=== PATIENT | female | born 1955 | race African-American/Black ===

== ENCOUNTER → 2017-11-04 10:07 | Outpatient (CLI) | payer BC, SELFPAY ==
--- NOTE | 2017-11-04 10:59 | CT_ITS ---
STUDY: CT CHEST WITH CONTRAST REASON FOR EXAM: Female, 62 years old. Nodule. RADIATION DOSAGE (If Supplied By Facility): CTDIvol = ( 14.73 ) mGy, DLP = ( 623.74 ) mGycm TECHNIQUE: Transaxial imaging was performed following intravenous administration of 100 ml of Isovue 300 contrast material. Individualized dose optimization techniques were used for this CT. COMPARISON: 09/11/2016. FINDINGS: There is mild atelectasis in the posterior lungs and lung bases. Previously demonstrated right lower lobe lung nodules have resolved. There is no demonstrated pleural abnormality. Normal heart and pericardium. There are enlarged subcarinal, pretracheal, and left mediastinal lymph nodes. Largest nodes are seen in the subcarinal region ranging up to 2.1 cm in short axis diameter. Mediastinal lymphadenopathy is slightly improved compared to the 2017 exam. There are enlarged hilar lymph nodes bilaterally, not significantly different previous exam. Normal enhanced pulmonary arteries. Normal aorta arch and descending thoracic aorta. There are multi-level degenerative changes of the thoracic spine. There is no demonstrated abnormality of the visualized upper abdomen. CT/Chest WITH Contrast IMPRESSION: Mediastinal lymphadenopathy, with slight interval improvement from previous exam. Bilateral hilar lymphadenopathy, not significantly changed. Interval resolution of previously demonstrated right lower lobe lung nodules. No currently demonstrated pulmonary nodules. Electronically Signed: Ziyad Markham MD at 7:31 EDT , Service support ,
[2017-11-04 11:20] LABS: CREATININE FINGERSTICK 0.8 mg/dL (0.55-1.02)
--- NOTE | 2017-11-05 05:45 | PFTCOMP_ITS ---
COMPLETE PULMONARY FUNCTION TEST INTERPRETATION Brief HPI: Patient is a 62 year old Black female, currently under the care of Dr. Royal, who presents to [facility] for complete pulmonary function tests secondary to diagnosis of restrictive lung disease. Respiratory therapist reports good effort and reproducible results. Interpretation: Forced expiration spirometry shows no large airways obstructive ventilatory defect with an FEV1 of 72% predicted. There is no significant bronchodilator response by ATS criteria. Spirograms are of good quality and plateau normally. The respiratory flow volume loop shows decreased expiratory flow rates at high lung volumes consistent with small airways obstruction. Lung volumes by body plethysmography show a decreased total lung capacity at 3.79 L, 78% predicted. All other lung volumes are reduced symmetrically. Diffusion capacity by carbon monoxide is decreased at 58% predicted. The airway resistance is normal. Compared to previous pulmonary function tests from 12/24/2016, there has been a significant improvement in total lung capacity. Impression: Mild restrictive ventilatory defect with a symmetric reduction diffusing capacity, which is slightly improved compared to previous examination.
== END ==
PROVIDERS: Family Provider Internal Medicine; PCP Internal Medicine; Visit Provider Internal Medicine Critical Care Medicine
DX: J98.4 Other disorders of lung (principal); R59.0 Localized enlarged lymph nodes
CPT/HCPCS: 71260; 94060; 94726; 94729; Q9967

== ENCOUNTER 2018-08-22 23:13 | Emergency (ER) | payer BC, SELFPAY ==
[2018-06-11 10:47] VITALS: BMI 32.9
[2018-08-22 23:15] VITALS: BP 167/98; PULSE 57; RESP 16; TEMP 36.4; O2SAT 100; BMI 33.7
--- NOTE | 2018-08-23 00:15 | ED.DCSUM_ITS ---
- ER Visit Summary Date of Service: 08/23/18 Chief Complaint: Abdominal pain History of Present Illness: The patient is a 62 F who presents with abdominal pain that has been intermittent over the past 2 days. Patient states her pain is worse approximately 2 hours after eating. Patient states the pain is over the upper abdomen. Patient states pain does radiate into her back. Patient describes the pain as burning. Patient denies any nausea or vomiting. Patient denies any diarrhea, melena, or hematochezia. Patient denies any dysuria or hematuria. Patient denies any abnormal vaginal bleeding or discharge. Physical Examination: Vital signs are stable. Patient is afebrile. Patient is in no acute distress. Oral mucosa is pink and moist. Neck is supple. Trachea is midline. There is no JVD noted. Heart was regular rate and rhythm. Lungs are clear and equal bilateral. Abdomen is soft. Bowel sounds are normal. There is no tenderness. There is no guarding noted. Skin is warm dry. Cranial nerves II through XII are intact. There are no focal motor or sensory deficits noted. The remaining physical exam is within normal limits. Test Results: CBC, comprehensive metabolic profile, lipase, and urinalysis were obtained and were within normal limits. Emergency Department Course and Treatment: Patient was given morphine and Zofran here. Patient felt better on reevaluation. Patient was instructed to follow-up with her primary care physician for further evaluation. Patient was advised she may need an outpatient ultrasound of her gallbladder. Patient was instructed to avoid fried foods, greasy foods, and fatty foods. Patient and her understood and were agreeable with the plan. All questions were answered. Disposition: Discharge home Impression: Right upper quadrant abdominal pain This note was generated with [employer] dictation software. It may contain incorrect words, spelling, and punctuation that were not noted in review of the chart prior to signing ED Disposition - Plan for ED Patient: Disposition: Home or Assisted Living Diagnosis: Right upper quadrant abdominal pain Instructions: ED Abdominal Pain Unkn Cause Referrals: Charlee Espinoza MD [Primary Care Provider] - 3-5 Days
[2018-08-23] MEDS: Morphine 4 MG/ML Syringe IV (00:25)
[2018-08-23] MEDS: Ondansetron 4 MG/2 ML Vial IV (00:25)
[2018-08-23 00:36] LABS: Bacteria 0 SEEN /hpf (None Seen); Mucous, Urine 0 SEEN /hpf (<or=2+); Red Blood Cells-Urine 0 SEEN /hpf (0-5); White Blood Cells 0 SEEN /hpf (0-5)
[2018-08-23 00:47] LABS: Absolute Lymphocyte Count 2.05 X10^3/ul (0.83-4.51); Absolute Neutrophil Count 2.4 X10^3/uL (2.0-7.7); Basophil# 0.02 X10^3/uL; Basophil% 0.4 % (0-1); Eosinophil# 0.07 X10^3/uL; Eosinophils% 1.4 % (0-5); Hematocrit 35.8 % (37-47); Lymphocyte # 2.05 X10^3/ul (4.0); Lymphocyte % 41.5 % (19-41); Mean Corp Hgb Conc 33.5 g/gl (32-36); Mean Corpuscular Hgb 27.4 pg (27.0-32.0); Mean Corpuscular Volume 81.7 fL (81-99); Mean Platelet Vol. 12.3 fl (6.2-12.0); Monocyte# 0.36 X10^3/uL; Monocyte% 7.3 % (0-10); Neutrophil # 2.43 X10^3/uL (2.7-7.7); Neutrophil % 49.2 % (47-70); Platelet Count 164 K/mm3 (150-450); RBC Distribution Width CV 14.2 % (11.6-14.6); RBC Distribution Width SD 42.3 fl (35.1-43.9); Red Blood Count 4.38 M/mm3 (4.2-5.4); White Blood Count 4.9 K/mm3 (4.4-11.0)
[2018-08-23 00:48] LABS: ALB/GLOB Ratio 1.1 RATIO (0.9-2.4); AST(SGOT) 19 U/L (15-37); Alanine Aminotransfer ALT/SGPT 19 U/L (13-56); Albumin, Serum 3.8 g/dL (3.2-5.0); Alkaline Phosphatase 82 U/L (45-117); Anion Gap 3 (5-15); BUN 15 mg/dL (7-18); BUN/Creat Ratio 13.5 RATIO (10-20); Calcium,Total 9.5 mg/dL (8.5-10.1); Chloride 107 mmol/L (98-107); Creatinine, Serum 1.11 mg/dL (0.55-1.02); EST Glomerular Filtration Rate 53 mL/min (>60); Est Glom Filt Rate - Afr Amer 64 mL/min (>60); Estimated Creatinine Clearance 45.38 ml/min; Globulin 3.5 g/dL (2.2-4.2); Glucose 116 mg/dL (74-106); Lipase 272 U/L (73-393); Potassium 3.9 mmol/L (3.5-5.1); Protein, Total 7.3 g/dL (6.4-8.2); Sodium Level 140 mmol/L (136-145)
[2018-08-23 00:49] LABS: Color, Urine Yellow (Yellow); Glucose, Dipstick Normal (Normal); Ketone-Dipstick Negative (Negative); Leukocyte Esterase-Dipstick Negative /ul (Negative); Nitrite-Dipstick Negative (Negative); Occult Blood-Urine Negative /ul (Negative); Protein-Dipstick Negative (Negative); Specific Gravity, Urine 1.015 (1.002-1.030); Urine Bilirubin Dipstick Negative (Negative); Urine Clarity Clear (Clear); Urine Urobilinogen Normal (Normal); Urine pH 6.5 (5.0 - 8.0)
[2018-08-23 00:51] LABS: POSITIVE COUNT NO; POSITIVE DIFFERENTIAL NO; POSITIVE MORPHOLOGY NO
[2018-08-23 00:56] LABS: Squamous Epithelial Cells - UA 0-5 SEEN /hpf (5-10)
[2018-08-23 01:55] VITALS: BP 155/85; PULSE 60; RESP 14; O2SAT 98
== END 2018-08-23 01:59 | disposition home or self-care (01) ==
PROVIDERS: Emergency Provider Emergency Medicine; Family Provider Internal Medicine; PCP Internal Medicine
DX: R10.11 Right upper quadrant pain (principal); E11.9 Type 2 diabetes mellitus without complications
CPT/HCPCS: 80053; 81001; 83690; 85025; 96374; 96375; 99284; A4216; J2405

== ENCOUNTER 2020-10-22 14:13 | Emergency (ER) | payer BC, SELFPAY ==
[2020-10-22 14:13] VITALS: BP 167/90; PULSE 57; RESP 15; TEMP 36.4; O2SAT 100; BMI 32.3
[2020-10-22 14:48] VITALS: BP 173/89; PULSE 59; RESP 16; O2SAT 100
--- NOTE | 2020-10-22 15:05 | EKG12_ITS ---
Test Reason : CP Blood Pressure : / mmHG Vent. Rate : 054 BPM Atrial Rate : 054 BPM P-R Int : 164 ms QRS Dur : 068 ms QT Int : 422 ms P-R-T Axes : 065 -05 048 degrees QTc Int : 400 ms Sinus bradycardia Moderate voltage criteria for LVH, may be normal variant Borderline ECG Confirmed by CORTNEY CASTRO, RON ([id number]), associate editor LISETH BUI ([id number]) on 10/26/2020 9:28:24 AM Referred By: FAWN/DEEJAY Confirmed By:RON BARR MD
--- NOTE | 2020-10-22 15:26 | RAD_ITS ---
STUDY: X-RAY CHEST REASON FOR EXAM: Female, 65 years old. chest pain TECHNIQUE: 1 view COMPARISON: 09/10/2016 FINDINGS: The cardiac silhouette is unremarkable. Bilateral hilar adenopathy is unchanged. Costophrenic angles are sharp. Lungs are clear. The trachea is midline. There is no pneumothorax. The bones are grossly intact. RAD/Chest 1 View (Portable) IMPRESSION: No acute cardiopulmonary process. Stable bilateral hilar adenopathy. Electronically Signed: Atif Torres MD at 15:50 EDT Tel , Service support ,
[2020-10-22 15:45] LABS: Absolute Lymphocyte Count 1.72 X10^3/uL (0.83-4.51); Absolute Neutrophil Count 2.7 X10^3/uL (2.0-7.7); Basophil# 0.03 X10^3/uL; Basophil% 0.6 % (0-1); Eosinophil# 0.05 X10^3/uL; Hematocrit 35.2 % (37-47); Hemoglobin 11.5 g/dL (12.0-15.0); Lymphocyte # 1.72 X10^3/ul (0.83-4.51); Mean Corp Hgb Conc 32.7 g/dL (32-36); Mean Corpuscular Hgb 27.5 pg (27.0-32.0); Mean Corpuscular Volume 84.2 fL (81-99); Mean Platelet Vol. 12.2 fl (6.2-12.0); Monocyte# 0.37 X10^3/uL; Monocyte% 7.5 % (0-10); NRBC Flagged by Analyzer 0 % (0-5); Neutrophil # 2.73 X10^3/uL (2.7-7.7); Neutrophil % 55.5 % (47-70); Platelet Count 154 K/mm3 (150-450); RBC Distribution Width CV 13.8 % (11.6-14.6); RBC Distribution Width SD 42.4 fl (35.1-43.9); Red Blood Count 4.18 M/mm3 (4.2-5.4); White Blood Count 4.9 K/mm3 (4.4-11.0)
[2020-10-22 16:04] LABS: Anion Gap 6 (5-15); BUN 16 mg/dL (7-18); BUN/Creat Ratio 17.7 RATIO (10-20); Calcium,Total 9.5 mg/dL (8.5-10.1); Chloride 108 mmol/L (98-107); Creatinine, Serum 0.91 mg/dL (0.55-1.02); EST Glomerular Filtration Rate 66 mL/min (>60); Est Glom Filt Rate - Afr Amer 80 mL/min (>60); Estimated Creatinine Clearance 53.22 ml/min; Glucose 88 mg/dL (74-106); Potassium 4.1 mmol/L (3.5-5.1); Sodium Level 143 mmol/L (136-145)
[2020-10-22] MEDS: Aspirin 81 MG TAB.CHEW 324 MG PO (16:13)
--- NOTE | 2020-10-22 16:16 | ED.VIS.CHEST ---
HPI History of Present Illness Chief Complaint: Chest Pain Informant: patient and spouse/S.O. Onset/Context/Timing Onset: Today Activity at onset: sudden and light activity Timing: Intermittent (Initially thought it lasted 2 minutes to 3 minutes) Quality: Positive for - (A light fist in the middle of my chest) Location: Substernal Current Severity: Gone Maximum Severity: Mild Worsened By: Nothing Relieved By: Nothing Associated Symptoms: Positive for - (There was no radiation.); Negative for Nausea, Vomiting, Diaphoresis, Dyspnea, Cough, Fever, Lightheadedness, Acid Reflux and Palpitations Narrative Narrative: Patient is a 65-year-old woman with history of hypertension. She denies history of coronary disease. She states Dr. Rickey Back manages her hypertension. She denies heartburn or indigestion. She denies history of reflux. She denies black or maroon-colored stool. She states she does have type 2 diabetes for the past 11 years. She also has history of allergic rhinitis. Patient denies coronary disease. Patient denies history of VTE. Patient denies risk factors for VTE. She denies leg pain, swelling discoloration. Prior Similar Symptoms: No Recent Illness/Hospitalization: No CVD Risk Factors: Positive for Hypertension and Diabetes; Negative for Hypercholesterolemia, Family History 1' </=55 and Smoking PE Risk Factors: Negative for Recent Travel/Surgery, Recent Immobilization, Prior DVT or PE and OCP + Smoking + >/=35 TAD Risk Factors: Positive for Hypertension; Negative for Marfan's Syndrome and Family History [facility] Medical History (Updated 10/22/20 @ 16:[address] Anish Aguirre MD) Abnormal chest CT Acute confusional state Anemia Back problem Essential (primary) hypertension Headache Hyperlipidemia Left atrial enlargement Mediastinal lymphadenopathy Pancytopenia Restrictive lung disease Sarcoidosis Seasonal allergies Sinus bradycardia TIA (transient ischemic attack) Transient global amnesia Type 2 diabetes mellitus Vision problem Home Medications fluticasone propionate 50 mcg/actuation nasal spray,suspension 2 spray INTRANASAL QDAY #1 device 09/26/17 [Rx Last Taken Unknown] montelukast 10 mg tablet 10 mg PO QPM PRN tab 06/15/19 [History Last Taken Unknown] losartan 50 mg PO DAILY 10/22/20 [History Last Taken Unknown] metformin 250 mg PO QPM 10/22/20 [History Last Taken Unknown] metformin 500 mg PO BREAKFAST 10/22/20 [History Last Taken Unknown] rosuvastatin [Crestor] 10 mg PO QHS 10/22/20 [History Last Taken Unknown] Allergy/AdvReac Type Severity Reaction Status Date / Time Penicillins Allergy Rash Verified 10/22/20 14:13 Family History Father , Unknown causes, believed to be lung cancer No problems noted. Surgical History History of cholecystectomy History of partial thyroidectomy Social History (Updated 10/22/20 @ 16:[address] Anish Aguirre MD) household members: spouse Smoking Status: Never smoker alcohol intake: never substance use type: does not use caffeine: Yes Type: coffee Number of servings: 3 ROS ROS ED Constitutional Constitutional ED: Denies chills, fever(s), subjective or sweats Eyes Eyes: Denies none, blurry vision, change in vision or diplopia ENT ENT ED: Denies ear pain, rhinorrhea or sore throat Cardiovascular Cardiovascular: Reports as per HPI; Denies orthopnea or paroxysmal nocturnal dyspnea Respiratory/Chest Respiratory/Chest: Denies cough, dyspnea, dyspnea on exertion, orthopnea or paroxysmal nocturnal dyspnea Gastrointestinal Gastrointestinal: Denies abdominal pain, diarrhea, nausea or vomiting Genitourinary Genitourinary ED: Denies dysuria, hematuria or urinary frequency Musculoskeletal Musculoskeletal: Denies arthralgias, back pain or myalgias Integumentary Denies rash Neurologic Neurologic: Denies headache(s) or weakness Endocrine Endocrinology: Denies polydipsia, polyphagia or polyuria EXAM Physical Exam Const Vital Signs: 10/22/20 14:13 10/22/20 14:48 10/22/20 15:05 Temperature 97.5 F L Temperature Source Temporal Pulse Rate 57 L 59 L Respiratory Rate 15 16 Blood Pressure 167/90 H 173/89 H Blood Pressure Mean 115 117 Pulse Ox 100 100 Oxygen Delivery Method Room Air Room Air Room Air Positive well nourished and well developed General Appearance ED: well developed; Negative for pallor HEENT HEENT Narrative: Ears are normal. Nares patent with no discharge. Posterior pharynx unremarkable with no erythema or exudate. normocephalic and atraumatic Eyes PERRL and EOMs intact bilaterally General Eye ED: Negative for pale conjunctiva or scleral icterus Neck no lymphadenopathy, supple and no JVD Chest Wall inspection of chest normal Resp normal respiratory effort and clear to auscultation bilaterally Effort and Inspection: respiratory distress Cardio regular rate, regular rhythm, S1 normal heart sound, S2 normal heart sound and no murmurs GI normal to inspection, nondistended, normoactive bowel sounds, soft to palpation and non-tender Back/Spine no CVA tenderness Extremity normal to inspection Extremity Narrative: There is no asymmetry, swelling, discoloration, leg vein distention, palpable cords or tenderness along the distribution of the deep venous system. General Extremety ED: Negative for edema, pulses abnormal or tenderness General Extremity: Negative for edema or pulses abnormal Neuro oriented x3, CN's II-XII intact bilaterally and no sensory deficits noted Sensorium / Orientation: awake and alert Motor Exam: strength 5/5 throughout Psych mental status grossly normal Skin no rashes or lesions noted and no wounds General Skin Exam: Negative for jaundice or pallor Heart Score History: Slightly/Non-Suspicious ECG: Normal Age: >/= 65 years Risk Factors: 1 or 2 Risk Factors Troponin: </= Normal Limit Score: 3 MDM MDM MDM Narrative Medical decision making narrative: Patient has a heart score 3. Patient has a very atypical presentation and at the time of discharge when I informed patient of test results states the pain probably lasted less than a minute. They are concerned because of elevated blood pressure readings the past 1 to 2 weeks. They were instructed to contact Dr. Rickey Back for follow-up. Her most recent blood pressure is 158/85. Lab Data Attestation: I reviewed the patient's lab results. Labs: Laboratory Results - last 24 hr 10/22/20 10/22/20 15:35 15:35 WBC 4.9 RBC 4.18 L Hgb 11.5 L Hct 35.2 L MCV 84.2 MCH 27.5 MCHC 32.7 RDW Std Deviation 42.4 RDW Coeff of Dejon 13.8 Plt Count 154 MPV 12.2 H Immature Gran % (Auto) 0.400 Neut % (Auto) 55.5 Lymph % (Auto) 35.0 Mingo % (Auto) 7.5 Eos % (Auto) 1.0 Baso % (Auto) 0.6 Absolute Neuts (auto) 2.7 Absolute Lymphs (auto) 1.72 Nucleated RBC % 0 Sodium 143 Potassium 4.1 Chloride 108 H Carbon Dioxide 29.0 Anion Gap 6 BUN 16 Creatinine 0.91 Estim Creat Clear Calc 53.22 Est GFR (MDRD) Af Amer 80 Est GFR (MDRD) Non-Af 66 BUN/Creatinine Ratio 17.7 Glucose 88 Calcium 9.5 Troponin I < 0.015 Radiography Chest X-Ray - ED: 1 View, Read by ED Physician, Heart, Lungs, Bony Structures, No Acute Disease and - (Patient has bilateral hilar lymphadenopathy consistent with sarcoidosis. Unchanged from 2018.) Diagnostic Testing: Radiology Impression Chest X-Ray 10/22/20 15:26 IMPRESSION: No acute cardiopulmonary process. Stable bilateral hilar adenopathy. Electronically Signed: Atif Torres MD at 15:50 EDT Tel , Service support , Discharge Plan Triage Chief Complaint: Chest Pain ED Provider: Anish Aguirre Dx/Rx/DC Orders Clinical Impression: Central chest pain, Hypertension Instructions: ED Chest Pain, Uncertain Cause Prescriptions: No Action fluticasone propionate [Flonase Allergy Relief] 50 mcg/actuation spray,suspension 2 spray INTRANASAL QDAY Qty: 1 RF: 6 montelukast [Singulair] 10 mg tablet 10 mg PO QPM PRN (Reason: allergies) RF: 0 losartan 50 mg Tablet 50 mg PO DAILY RF: 0 metformin 500 mg Tablet 500 mg PO BREAKFAST RF: 0 metformin 500 mg Tablet 250 mg PO QPM RF: 0 rosuvastatin [Crestor] 10 mg Tablet 10 mg PO QHS RF: 0 Primary Care Provider: Charlee Espinoza Referrals: Charlee Espinoza MD [Primary Care Provider] - Rickey Back MD [STAFF PHYSICIAN] - 1-2 Weeks (Patient presented with atypical chest pain. and patient report elevated blood pressure for the past week or 2. She had elevated blood pressure readings in the department. Follow-up for blood pressure) Disposition Disposition: Home, self care
== END 2020-10-22 16:37 | disposition home or self-care (01) ==
PROVIDERS: Emergency Provider Emergency Medicine; PCP Internal Medicine
DX: R07.9 Chest pain, unspecified (principal); I10 Essential (primary) hypertension; E11.9 Type 2 diabetes mellitus without complications; E78.5 Hyperlipidemia, unspecified; Z79.899 Other long term (current) drug therapy; Z79.84 Long term (current) use of oral hypoglycemic drugs
CPT/HCPCS: 71045; 80048; 84484; 85025; 93005; 99284

== ENCOUNTER → 2021-09-24 | Outpatient (CLI) | payer BC, SELFPAY ==
--- NOTE | 2021-09-24 10:47 | STEWCON_ITS ---
Reason For Study: HTN Stress Results Protocol: Pal Protocol WITH DEFINITY Maximum Predicted HR: 154 bpm Target HR: 131 bpm % Maximum Predicted HR: 101 % DurationHeart Rate Stage (mm:ss) (bpm) BP Comment Baseline 62 118/70No Chest Pain; 4 ML Diluted Definity Pal Protocol Stage I 3:00 114 130/64No Chest Pain Pal Protocol Stage II 3:00 136 150/66No Chest Pain Pal Protocol Stage III 3:00 155 160/64No Chest Pain; Mild to Mod Dyspnea Recovery 75 118/72No Chest Pain; No Dyspnea Stress Duration: 9:00 mm:ss Maximum Stress HR: 155 bpm METS: 10 Baseline Echocardiogram Findings Stress Echo Wall motion Data Resting WM Intermediate WM Stress WM Doppler Measurements & Calculations MV E max stuart: 65.0 cm/sec MV A max stuart: 99.0 cm/sec MV E/A: 0.66 ECHO/Stress Test Echo W/Contrast Interpretation Summary Exercise stress echo. 66-year-old lady with a history of hypertension. Stress protocol: Resting EKG demonstrates sinus bradycardia with a rate of 52 bpm. Normal interv als are noted resting blood pressure is 118/70 mmHg. Patient exercised according to the regular Pal protocol for total duration of 9 minutes. The maximum heart rate attained was 155 bpm which was 10 0% of max impacted heart rate. The maximum workload was 10.1 metabolic equivalents. At rest there were no ST or T wave changes noted suggest ischemia and at peak exercise upsloping ST changes were n oted with did not meet the criteria for ischemia. No clinical angina was noted. Occasional premat ure atrial complex was present. The peak blood pressure was 160/66 mmHg. Stress echocardiogram. The resting echocardiogram was performed with Definity enhancement demonstrated preserved left ventricular systolic function estimated ejection fraction of 55%. At peak exerc ise there was thickening of all mendieta and reduction of left ventricular cavity size. The peak ejection fraction was 65%. No wall motion abnormalities were noted to suggest ischemia at a high workload attained. Conclusion: Normal exercise stress test with no evidence of ischemia at a high workload. Normal resting and stress echocardiographic images with Definity enhancement. Ordering Physician: Rickey Back Referring Physician: Rickey Back Performed By: Akosua Osullivan, STUART, RVT
== END | disposition home or self-care (01) ==
PROVIDERS: PCP Internal Medicine; Visit Provider Internal Medicine Cardiovascular Disease
DX: I10 Essential (primary) hypertension (principal)
CPT/HCPCS: 93017; 93350; Q9957; A4216; C8928

== ENCOUNTER 2023-07-22 15:11 | Emergency (ER) | payer BC, SELFPAY ==
[2023-07-22 15:11] VITALS: BP 149/84; PULSE 56; RESP 18; O2SAT 97
[2023-07-22 15:13] VITALS: BP 168/91; PULSE 63; RESP 16; TEMP 36.3; O2SAT 100; BMI 31.5
--- NOTE | 2023-07-22 15:20 | ED.RN ---
PT REPORTS SHE CAN'T REMEMBER EVENTS FROM TODAY- DOES NOT KNOW WHAT SHE DID THIS AM. IS AWARE OF PLACE, MONTH, YEAR AND DAY OF THE WEEK.
--- NOTE | 2023-07-22 15:25 | EX.ED.DYSGE1 ---
HPI History of Present Illness Chief Complaint: Confusion Detail of Chief Complaint: Confusion Informant: patient Onset/Context/Timing Onset: Today Context: Sudden Onset Timing: Continuous Quality: Forgetful Location: Not applicable Current Severity: Mild Maximum Severity: Unknown Worsened by: Nothing Relieved by: Nothing Associated Symptoms Associated Symptoms: Nothing Narrative Narrative: Patient is a 67-year-old woman with history of hypertension, type 2 diabetes who presents because of forgetfulness. She has history of transient global amnesia in 2017. She does not recall if she went to [facility] [facility] or not. She did get ready to go to [facility] [facility]. She states her would states she is normal at this time. She denies fever, chills or night sweats. She denies headache. Eyes double vision blurred vision loss of vision. [place] ringing or ears decreased hearing. No trouble speech or swallowing. She denies paresthesia, anesthesia or motor weakness. She denies problems with coordination or balance. She denies abdominal pain, nausea, vomiting or diarrhea. She denies dysuria, frequency, urgency or hematuria. Prior similar symptoms: Yes (September 2016) [facility] Medical History Abnormal chest CT Acute confusional state Anemia Back problem Essential (primary) hypertension Headache Hyperlipidemia Left atrial enlargement Mediastinal lymphadenopathy Pancytopenia Restrictive lung disease Sarcoidosis Seasonal allergies Sinus bradycardia Transient global amnesia Type 2 diabetes mellitus Vision problem Home Medications fluticasone propionate 50 mcg/actuation nasal spray,suspension (Flonase Allergy Relief) 2 spray intranasal QDAY #1 device 09/26/17 [Rx Last Taken Unknown] montelukast 10 mg tablet (Singulair) 10 mg PO QPM PRN allergies 06/15/19 [History Last Taken Unknown] losartan 50 mg tablet 50 mg PO DAILY 10/22/20 [History Last Taken Unknown] metformin 500 mg tablet 500 mg PO BID 08/21/21 [History Last Taken Unknown] amlodipine 5 mg tablet See Rx Instructions .Route .COMPLEX #90 tabs 10/01/22 [Rx Last Taken Unknown] tirzepatide 2.5 mg/0.5 mL subcutaneous pen injector (Mounjaro) 2.5 mg subcut QWEEK 11/21/22 [History Last Taken Unknown] Allergy/AdvReac Type Severity Reaction Status Date / Time Penicillins Allergy Rash Verified 07/22/23 15:12 rosuvastatin [From Crestor] AdvReac memory loss Verified 07/22/23 15:12 Family History Father , Unknown causes, believed to be lung cancer No problems noted. Surgical History History of cholecystectomy History of partial thyroidectomy Social History household members: spouse Smoking Status: Never smoker alcohol intake: never substance use type: does not use caffeine: Yes Type: coffee Number of servings: 3 ROS ROS ED Constitutional Constitutional ED: Denies chills, fever(s), sweats or weight loss Eyes Eyes: Denies blurry vision, change in vision or diplopia ENT ENT ED: Denies ear pain, rhinorrhea or sore throat Cardiovascular Cardiovascular: Denies chest pain, orthopnea, palpitations, paroxysmal nocturnal dyspnea or racing heartbeat Respiratory/Chest Respiratory/Chest: Denies cough, dyspnea, dyspnea on exertion, orthopnea or paroxysmal nocturnal dyspnea Gastrointestinal Gastrointestinal: Denies abdominal pain, diarrhea, nausea or vomiting Genitourinary Genitourinary ED: Denies dysuria, hematuria or urinary frequency Musculoskeletal Musculoskeletal: Denies arthralgias, back pain, myalgias or neck pain Integumentary Denies abscess or rash Neurologic Neurologic: Denies headache(s), paresthesias or weakness Endocrine Endocrinology: Denies cold intolerance or heat intolerance Hematologic/Lymphatic Hematologic/Lymphatic: Reports systems reviewed and no addt'l complaints, except as documented EXAM Physical Exam Const Vital Signs: 07/22/23 15:13 07/22/23 15:11 07/22/23 16:11 Temperature 97.4 F L Temperature Source Temporal Pulse Rate 63 56 L 64 Respiratory Rate 16 18 16 Blood Pressure 168/91 H 149/84 H 140/78 H Blood Pressure Mean 116 105 98 Pulse Ox 100 97 97 Oxygen Delivery Method Room Air Room Air Room Air 07/22/23 17:00 Temperature Temperature Source Pulse Rate 49 L Respiratory Rate 16 Blood Pressure 128/67 H Blood Pressure Mean 87 Pulse Ox 98 Oxygen Delivery Method Room Air Positive well nourished and well developed General Appearance ED: well developed and NAD; Negative for pallor HEENT Reports moist mucous membranes HEENT Narrative: Head is atraumatic and normocephalic. Ears normal. Nares patent. Posterior pharynx out erythema or exudate. Uvula midline. No deviation tongue or protrusion. Eyes PERRL and EOMs intact bilaterally Eyes Narrative: Patient does wear glasses. General Eye ED: Negative for pale conjunctiva or scleral icterus Neck no lymphadenopathy, supple and no JVD Chest Wall inspection of chest normal and palpation of chest normal Resp normal respiratory effort and clear to auscultation bilaterally Cardio regular rate, regular rhythm, S1 normal heart sound, S2 normal heart sound and no murmurs GI normal to inspection, nondistended, normoactive bowel sounds, non-tender, non-distended and no masses; Negative for hepatosplenomegaly Auscultation: normoactive bowel sounds Palpation: soft Back/Spine no CVA tenderness Extremity normal to inspection General Extremety ED: Negative for edema or tenderness General Extremity: Negative for edema Neuro oriented x3, CN's II-XII intact bilaterally and no sensory deficits noted Sensorium / Orientation: alert Motor Exam: strength 5/5 throughout Psych mental status grossly normal Mood & Affect: Negative for depressed or anxious Skin no rashes or lesions noted, no wounds and skin turgor normal General Skin Exam: Negative for jaundice or pallor MDM MDM MDM Narrative Medical decision making narrative: Frontal diagnosis would be metabolic versus infectious cause. Suspect this represents global transient amnesia. Because she is diabetic obtain BMP to assess glucose as well as electrolytes. CBC to assess white count differential. CT to rule out intracranial process. History & Record Review Additional record(s) reviewed:: Prior outpatient record Lab Data Attestation: I reviewed the patient's lab results. Lab results narrative: CBC is normal. Comprehensive metabolic panel is unremarkable. Glucose slightly evaded 111 with a normal CO2 anion gap. Chloride is slightly elevated 109. Urinalysis is negative. CAT scan was interpreted by radiologist as normal. This was reviewed by [facility] Labs: Laboratory Results - last 24 hr 07/22/23 07/22/23 15:15 16:42 WBC 4.7 RBC 4.44 Hgb 12.4 Hct 37.2 MCV 83.8 MCH 27.9 MCHC 33.3 RDW Std Deviation 42.6 RDW Coeff of Dejon 14.0 Plt Count 172 MPV 12.7 H Immature Gran % (Auto) 0.200 Neut % (Auto) 61.4 Lymph % (Auto) 29.5 [place] % (Auto) 7.2 Eos % (Auto) 1.3 Baso % (Auto) 0.4 Absolute Neuts (auto) 2.9 Absolute Lymphs (auto) 1.40 Nucleated RBC % 0 Sodium 143 Potassium 3.9 Chloride 109 H Carbon Dioxide 29.0 Anion Gap 5 BUN 13 Creatinine 0.90 Estim Creat Clear Calc 63.33 Est GFR (MDRD) Af Amer 80 Est GFR (MDRD) Non-Af 67 BUN/Creatinine Ratio 14.5 Glucose 111 H Calcium 10.1 Total Bilirubin 0.30 AST 21 ALT 15 Alkaline Phosphatase 95 Total Protein 8.0 Albumin 4.2 Globulin 3.8 Albumin/Globulin Ratio 1.1 Urine Color Yellow Urine Clarity Clear Urine pH 8.0 Ur Specific [place] 1.010 Urine Protein 15 H Urine Glucose (UA) Normal Urine Ketones Negative Urine Occult Blood Negative Urine Nitrite Negative Urine Bilirubin Negative Urine Urobilinogen Normal Ur Leukocyte Esterase 25 H Urine RBC 0 SEEN Urine WBC 0 SEEN Ur Squamous Epith Cells 0 SEEN Urine Bacteria 0 SEEN Urine Mucus 0 SEEN Radiography Diagnostic Testing: Clinical Impression(s) from Imaging Studies Brain CT 07/22/23 15:30 IMPRESSION: No acute intracranial pathology of the brain. Electronically Signed: Fabio Ware DO at 16:19 EDT Reading Location ID and State: [facility] / [place] Tel [phone], Service support , CT of the head without contrast was independent reviewed by me and felt to be normal. No acute process. There is no evidence of sinusitis. This was reviewed by me at 1619. Awaiting formal read by radiologist. Treatment and Re-Evaluation :: Since patient's workup is negative she was discharged to home with diagnosis of transient global amnesia. Discharge Plan Triage Chief Complaint: Confusion ED Provider: Anish Aguirre Dx/Rx/DC Orders Clinical Impression: Essential (primary) hypertension, Transient global amnesia, Hyperlipidemia Instructions: Understanding Reversible Dementias Prescriptions: No Action fluticasone propionate [Flonase Allergy Relief] 50 mcg/actuation spray,suspension 2 spray INTRANASAL QDAY Qty: 1 6RF Rx Instructions: administer into each nostril montelukast [Singulair] 10 mg tablet 10 mg PO QPM PRN (Reason: allergies) Mounjaro 2.5 mg/0.5 mL pen injector 2.5 mg subcut QWEEK losartan 50 mg Tablet 50 mg PO DAILY metformin 500 mg tablet 500 mg PO BID amlodipine 5 mg tablet See Rx Instructions .ROUTE .COMPLEX Qty: 90 3RF Dose Instruction: TAKE 1 TABLET BY MOUTH EVERY DAY Rx Instructions: TAKE 1 TABLET BY MOUTH EVERY DAY Primary Care Provider: Charlee Espinoza Referrals: Charlee Espinoza MD [Primary Care Provider] - 1 Week Disposition Disposition: Home, Self Care
--- NOTE | 2023-07-22 15:30 | CT_ITS ---
STUDY: CT BRAIN WITHOUT CONTRAST REASON FOR EXAM: Female, 67 years old. Amnesia RADIATION DOSAGE (If Supplied By Facility): CTDIvol = ( 44.99 ) mGy, DLP = ( 745.49 ) mGycm TECHNIQUE: Transaxial CT imaging of the brain was performed without administration of intravenous contrast material. Individualized dose optimization techniques were used for this CT. COMPARISON: No relevant priors. FINDINGS: Normal soft tissue structures. Normal calvarium. Normal size ventricles and extra-axial spaces for the patient''s age. Normal white matter tracts of the cerebral hemispheres. Normal basal ganglia and thalami. Normal brainstem. Normal cerebellum. There is no intracranial hemorrhage. There are no findings of an acute ischemic infarction. Normal visualized paranasal sinuses. CT/Brain/Head without Contrast IMPRESSION: No acute intracranial pathology of the brain. Electronically Signed: Fabio Ware DO at 16:19 EDT ,
[2023-07-22 15:47] LABS: Absolute Neutrophil Count 2.9 X10^3/uL (2.0-7.7); Basophil# 0.02 X10^3/uL; Basophil% 0.4 % (0-1); Eosinophil# 0.06 X10^3/uL; Eosinophils% 1.3 % (0-5); Hematocrit 37.2 % (37-47); Hemoglobin 12.4 g/dL (12.0-15.0); Lymphocyte % 29.5 % (19-41); Mean Corp Hgb Conc 33.3 g/dL (32-36); Mean Corpuscular Hgb 27.9 pg (27.0-32.0); Mean Corpuscular Volume 83.8 fL (81-99); Mean Platelet Vol. 12.7 fl (6.2-12.0); Monocyte# 0.34 X10^3/uL; Monocyte% 7.2 % (0-10); NRBC Flagged by Analyzer 0 % (0-5); Neutrophil # 2.91 X10^3/uL (2.7-7.7); Neutrophil % 61.4 % (47-70); Platelet Count 172 K/mm3 (150-450); RBC Distribution Width SD 42.6 fl (35.1-43.9); Red Blood Count 4.44 M/mm3 (4.2-5.4); White Blood Count 4.7 K/mm3 (4.4-11.0)
[2023-07-22 16:11] VITALS: BP 140/78; PULSE 64; RESP 16; O2SAT 97
[2023-07-22 16:20] LABS: ALB/GLOB Ratio 1.1 RATIO (0.9-2.4); AST(SGOT) 21 U/L (15-37); Alanine Aminotransfer ALT/SGPT 15 U/L (13-56); Albumin, Serum 4.2 g/dL (3.2-5.0); Alkaline Phosphatase 95 U/L (45-117); Anion Gap 5 (5-15); BUN 13 mg/dL (7-18); BUN/Creat Ratio 14.5 RATIO (10-20); Calcium,Total 10.1 mg/dL (8.5-10.1); Chloride 109 mmol/L (98-107); EST Glomerular Filtration Rate 67 mL/min (>60); Est Glom Filt Rate - Afr Amer 80 mL/min (>60); Estimated Creatinine Clearance 63.33 ml/min; Globulin 3.8 g/dL (2.2-4.2); Glucose 111 mg/dL (74-106); Potassium 3.9 mmol/L (3.5-5.1); Sodium Level 143 mmol/L (136-145)
[2023-07-22 16:59] LABS: Bacteria 0 SEEN /hpf (None Seen); Color, Urine Yellow (Yellow); Glucose, Dipstick Normal (Normal); Ketone-Dipstick Negative (Negative); Leukocyte Esterase-Dipstick 25 /ul (Negative); Mucous, Urine 0 SEEN /hpf (<or=2+); Nitrite-Dipstick Negative (Negative); Occult Blood-Urine Negative /ul (Negative); Protein-Dipstick 15 mg/dl (Negative); Red Blood Cells-Urine 0 SEEN /hpf (0-5); Squamous Epithelial Cells - UA 0 SEEN /hpf (5-10); Urine Bilirubin Dipstick Negative (Negative); Urine Clarity Clear (Clear); Urine Urobilinogen Normal (Normal); White Blood Cells 0 SEEN /hpf (0-5)
[2023-07-22 17:00] VITALS: BP 128/67; PULSE 49; RESP 16; O2SAT 98
[2023-07-22 17:29] VITALS: BP 128/67; PULSE 47; RESP 17; TEMP 36.6; O2SAT 100
--- OUTSIDE RECORDS SUMMARY | 2023-07-23 02:37 | XMS RPT_ITS | CCD ---
Author Name Unknown Address [address] [facility] [address] [place] [address] Organization [facility] Care Team Providers Care Used Equipment Sales Representative Name Role Phone Olga CASTRO, Ann Primary Care Provider [phone] DENBOW, MADDY Referring Unavailable GANTA, ANN Primary Care Unavailable GANTA, ANN Primary Care Unavailable DENBOW, MADDY Referring Unavailable GANTA, ANN Primary Care Unavailable LAKIA, QUINCY P Referring Unavailable GANTA, ANN Primary Care Unavailable LAKIA, QUINCY P Referring Unavailable LAKIA, QUINCY P Attending Unavailable GANTA, ANN Primary Care Unavailable DENBOW, MADDY Referring Unavailable GANTA, ANN Primary Care Unavailable DENBOW, MADDY Attending Unavailable GANTA, ANN Primary Care Unavailable GANTA, ANN Referring Unavailable DENBOW, MADDY Referring Unavailable GANTA, ANN Primary Care Unavailable GANTA, ANN Primary Care Unavailable DENBOW, MADDY Attending Unavailable GANTA, ANN Primary Care Unavailable OLDER, LYNDSAY Referring Unavailable GANTA, ANN Primary Care Unavailable GANTA, ANN Attending Unavailable GANTA, ANN Primary Care Unavailable GANTA, ANN Attending Unavailable GANTA, ANN Referring Unavailable GANTA, ANN Primary Care Unavailable Allergies Allergy Classification Reported Allergen(s) Allergy Type Date of Onset Reaction(s) Facility (20 sources) Acetaminophen; Translations: [ACETAMINOPHEN] Drug Allergy 7 GI Upset [facility] (4 sources) Penicillins; Translations: [PENICILLINS] Drug Allergy 5 Rash, Swelling, Itching [facility] Work Phone: (20 sources) Seasonal allergy; Translations: [SEASONAL ALLERGIES] Allergy to substance 5 Intolerance [facility] Work Phone: (20 sources) Penicillins Drug Allergy 5 Rash, Swelling, Itching [facility] Work Phone: Medications Current Medications Medication Drug Class(es) Dates Sig (Normalized) Sig (Original) doxycycline hyclate 100 mg oral tablet (3 sources) Tetracycline-clas s Drug Start: 03-09-2022 End: 03-16-2022 take 1 tablet by mouth twice daily doxycycline (VIBRA-TABS) 100 mg tablet Take 1 tablet by mouth twice daily for 7 days. 14 tablet 0 03/09/2022 03/16/2022 Active Completed/Discontinued Medications Medication Drug Class(es) Dates Sig (Normalized) Sig (Original) amLODIPine 5 mg oral tablet (20 sources) Dihydropyridine Calcium Channel [facility] Start: 12-06-2020 take 1 tablet by mouth once daily amLODIPine (NORVASC) 5 mg tablet Indications: Hypertension, essential, benign Take 1 tablet by mouth once daily. 0 12/06/2020 Active Problems Active Problems Problem Classification Problem Date Documented Da te Episodic/Chronic Allergic reactions (2 sources) Environmental allergy; Translations: [Other allergy status, other than to drugs and biological substances] Episodic Anal and rectal conditions (2 sources) Rectal pain; Translations: [Other specified diseases of anus and rectum] Onset: 07-08-2023 06-24-2023 Episodic Deficiency and other anemia (9 sources) Pancytopenia; Translations: [Other pancytopenia] Onset: 10-03-2020 10-03-2020 Chronic Diabetes mellitus without complication (20 sources) Type 2 diabetes mellitus without complication; Translations: [Type 2 diabetes mellitus without complications] Onset: 08-17-2014 05-07-2021 Chronic Essential hypertension (20 sources) Benign essential hypertension; Translations: [Essential (primary) hypertension] Onset: 01-17-2015 01-17-2015 Chronic Heart valve disorders (20 sources) Combined disorders of mitral, aortic and tricuspid valves; Translations: [Combined rheumatic disorders of mitral, aortic and tricuspid valves] Onset: 12-24-2016 10-03-2020 Chronic Immunity disorders (20 sources) Sarcoidosis; Translations: [Sarcoidosis, unspecified] Onset: 10-03-2020 10-03-2020 Chronic Immunizations and screening for infectious disease (2 sources) Needs influenza immunization; Translations: [Encounter for immunization] Episodic Nonspecific chest pain (1 source) Right sided chest pain; Translations: [Chest pain, unspecified] 06-24-2023 Episodic Nutritional deficiencies (11 sources) Vitamin D deficiency; Translations: [Vitamin D deficiency, unspecified] Onset: 08-08-2016 08-08-2016 Chronic Other aftercare (2 sources) Post-discharge follow-up; Translations: [Encounter for follow-up examination after completed treatment for conditions other than malignant neoplasm] Episodic Other and ill-defined heart disease (20 sources) Left atrial enlargement; Translations: [Cardiomegaly] Onset: 10-07-2016 10-03-2020 Chronic Other bone disease and musculoskeletal deformities (1 source) Disorder of bone; Translations: [Disorder of bone, unspecified] 07-18-2023 Episodic Other bone disease and musculoskeletal deformities (1 source) Disorder of bone, unspecified; Translations: [Disorder of bone] Onset: 07-18-2023 Episodic Other nutritional; endocrine; and metabolic disorders (9 sources) Obesity; Translations: [Obesity, unspecified] Onset: 10-17-2014 10-17-2014 Chronic Other nutritional; endocrine; and metabolic disorders (20 sources) Body mass index 30+ - obesity; Translations: [Body mass index (BMI) 31.0-31.9, adult] Onset: 02-19-2022 Chronic Other nutritional; endocrine; and metabolic disorders (1 source) Hypercalcemia; Translations: [Hypercalcemia] Chronic Other upper respiratory disease (1 source) Seasonal allergy; Translations: [Other seasonal allergic rhinitis] 02-18-2023 Chronic Skin and subcutaneous tissue infections (2 sources) Abscess; Translations: [Cutaneous abscess, unspecified] Episodic Spondylosis; intervertebral disc disorders; other back problems (1 source) Pain in the coccyx; Translations: [Sacrococcygeal disorders, not elsewhere classified] Episodic Thyroid disorders (10 sources) Hypothyroidism; Translations: [Hypothyroidism, unspecified] Onset: 12-06-2020 12-06-2020 Chronic Transient cerebral ischemia (20 sources) Transient cerebral ischemia; Translations: [Transient cerebral ischemic attack, unspecified] Onset: 12-24-2016 08-11-2020 Chronic Past or Other Problems Problem Classification Problem Date Documented Da te Episodic/Chronic Cardiac dysrhythmias (20 sources) Bradycardia; Translations: [Bradycardia, unspecified] Onset: 10-03-2020 1 Episodic Other lower respiratory disease (20 sources) Restrictive lung disease; Translations: [Other disorders of lung] Onset: 10-03-2020 10-03-2020 Episodic Other non-traumatic joint disorders (2 sources) Pain in right shoulder; Translations: [Pain in joint, shoulder region] Onset: 02-04-2023 06-24-2023 Episodic Other screening for suspected conditions (not mental disorders or infectious disease) (6 sources) Patient encounter status; Translations: [Encounter for screening mammogram for malignant neoplasm of breast] Onset: 10-29-2022 Episodic Residual codes; unclassified (9 sources) Delirium; Translations: [Disorientation, unspecified] Onset: 10-03-2020 10-03-2020 Episodic Results Test Name Value Interpretation Reference Range Facil ity Vital Signs Date Time Vital Sign Value Performing Clinician Addy curran 06-24-2023 13:44-0500 Body height 162.6 cm Maddy Denbow PA-C Work Phone: [facility] 06-24-2023 13:44-0500 Body weight 83.46 kg Maddy Denbow PA-C Work Phone: [facility] 06-24-2023 13:44-0500 Diastolic blood pressure 74 mm[Hg] Maddy Denbow PA-C Work Phone: [facility] 06-24-2023 13:44-0500 Heart rate 76 /min Maddy Denbow PA-C Work Phone: [facility] 06-24-2023 13:44-0500 Respiratory rate 12 /min Maddy Denbow PA-C Work Phone: [facility] 06-24-2023 13:44-0500 SaO2% (BldA) [Mass fraction] 100 % Maddy Denbow PA-C Work Phone: [facility] 06-24-2023 13:44-0500 Systolic blood pressure 120 mm[Hg] Mdady Denbow PA-C Work Phone: [facility] 10-29-2022 11:36-0400 Body height 162.6 cm Ann Farooq MD Work Phone: [facility] 10-29-2022 11:36-0400 Body temperature 98.01 [degF] Ann Farooq MD Work Phone: [facility] 10-29-2022 11:36-0400 Body weight 83.46 kg Ann Farooq MD Work Phone: [facility] 10-29-2022 11:36-0400 Diastolic blood pressure 74 mm[Hg] Ann Farooq MD Work Phone: [facility] 10-29-2022 11:36-0400 Heart rate 51 /min Ann Farooq MD Work Phone: [facility] 10-29-2022 11:36-0400 Respiratory rate 12 /min Ann Farooq MD Work Phone: [facility] 10-29-2022 11:36-0400 SaO2% (BldA) [Mass fraction] 99 % Ann Farooq MD Work Phone: [facility] 10-29-2022 11:36-0400 Systolic blood pressure 126 mm[Hg] Ann Farooq MD Work Phone: [facility] 09-17-2022 09:37-0400 Body temperature 98.01 [degF] Ann Farooq MD Work Phone: [facility] 09-17-2022 09:37-0400 Body weight 84.37 kg Ann Farooq MD Work Phone: [facility] 09-17-2022 09:37-0400 Diastolic blood pressure 80 mm[Hg] Ann Farooq MD Work Phone: [facility] 09-17-2022 09:37-0400 Heart rate 100 /min Ann Farooq MD Work Phone: [facility] 09-17-2022 09:37-0400 Respiratory rate 16 /min Ann Farooq MD Work Phone: [facility] 09-17-2022 09:37-0400 SaO2% (BldA) [Mass fraction] 96 % Ann Farooq MD Work Phone: [facility] 09-17-2022 09:37-0400 Systolic blood pressure 130 mm[Hg] Ann Farooq MD Work Phone: [facility] 06-11-2022 11:18-0500 Body height 162.6 cm Ann Farooq MD Work Phone: [facility] 06-11-2022 11:18-0500 Body temperature 98.2 [degF] Ann Farooq MD Work Phone: [facility] 06-11-2022 11:18-0500 Body weight 82.56 kg Ann Farooq MD Work Phone: [facility] 06-11-2022 11:18-0500 Diastolic blood pressure 68 mm[Hg] Ann Farooq MD Work Phone: [facility] 06-11-2022 11:18-0500 Heart rate 52 /min Ann Farooq MD Work Phone: [facility] 06-11-2022 11:18-0500 Respiratory rate 12 /min Ann Farooq MD Work Phone: [facility] 06-11-2022 11:18-0500 SaO2% (BldA) [Mass fraction] 100 % Ann Farooq MD Work Phone: [facility] 06-11-2022 11:18-0500 Systolic blood pressure 128 mm[Hg] Ann Farooq MD Work Phone: [facility] 03-12-2022 10:09-0400 Body height 162.6 cm Sun Carroll MD Work Phone: [facility] 03-12-2022 10:09-0400 Body temperature 97.2 [degF] Sun Carroll MD Work Phone: [facility] 03-12-2022 10:09-0400 Body weight 83.01 kg Sun Carroll MD Work Phone: [facility] 03-12-2022 10:09-0400 Diastolic blood pressure 82 mm[Hg] Sun Carroll MD Work Phone: [facility] 03-12-2022 10:09-0400 Heart rate 78 /min Sun Carroll MD Work Phone: [facility] 03-12-2022 10:09-0400 SaO2% (BldA) [Mass fraction] 99 % Sun Carroll MD Work Phone: [facility] 03-12-2022 10:09-0400 Systolic blood pressure 144 mm[Hg] Sun Carroll MD Work Phone: [facility] 03-09-2022 10:07-0400 Body temperature 97.5 [degF] Dania Athy PA-C Work Phone: [facility] 03-09-2022 10:07-0400 Body weight 82.74 kg Dania Athy PA-C Work Phone: [facility] 03-09-2022 10:07-0400 Diastolic blood pressure 84 mm[Hg] Dania Athy PA-C Work Phone: [facility] 03-09-2022 10:07-0400 Heart rate 54 /min Dania Athy PA-C Work Phone: [facility] 03-09-2022 10:07-0400 Respiratory rate 16 /min Dania Athy PA-C Work Phone: [facility] 03-09-2022 10:07-0400 SaO2% (BldA) [Mass fraction] 99 % Dania Athy PA-C Work Phone: [facility] 03-09-2022 10:07-0400 Systolic blood pressure 144 mm[Hg] Dania Athy PA-C Work Phone: [facility] 02-19-2022 13:46-0400 Body height 162.6 cm Ann Farooq MD Work Phone: [facility] 02-19-2022 13:46-0400 Body temperature 97.81 [degF] Ann Farooq MD Work Phone: [facility] 02-19-2022 13:46-0400 Body weight 82.1 kg Ann Farooq MD Work Phone: [facility] 02-19-2022 13:46-0400 Diastolic blood pressure 76 mm[Hg] Ann Farooq MD Work Phone: [facility] 02-19-2022 13:46-0400 Heart rate 62 /min Ann Farooq MD Work Phone: [facility] 02-19-2022 13:46-0400 Respiratory rate 12 /min Ann Farooq MD Work Phone: [facility] 02-19-2022 13:46-0400 SaO2% (BldA) [Mass fraction] 99 % Ann Farooq MD Work Phone: [facility] 02-19-2022 13:46-0400 Systolic blood pressure 126 mm[Hg] Ann Farooq MD Work Phone: [facility] 11-20-2021 11:09-0400 Body height 162.6 cm Ann Farooq MD Work Phone: [facility] 11-20-2021 11:09-0400 Body temperature 98.4 [degF] Ann Farooq MD Work Phone: [facility] 11-20-2021 11:09-0400 Body weight 82.56 kg Ann Farooq MD Work Phone: [facility] 11-20-2021 11:09-0400 Diastolic blood pressure 68 mm[Hg] Ann Farooq MD Work Phone: [facility] 11-20-2021 11:09-0400 Heart rate 54 /min Ann Farooq MD Work Phone: [facility] 11-20-2021 11:09-0400 Respiratory rate 12 /min Ann Farooq MD Work Phone: [facility] 11-20-2021 11:09-0400 SaO2% (BldA) [Mass fraction] 99 % Ann Faoroq MD Work Phone: [facility] 11-20-2021 11:09-0400 Systolic blood pressure 128 mm[Hg] Ann Farooq MD Work Phone: [facility] Encounters Encounter Date Encounter Type Care Provider Facility Start: 07-18-2023 End: 07-18-2023 ambulatory ANN FAROOQ Facility:[facility] Start: 07-18-2023 End: 07-18-2023 Subsequent hospital visit by physician [facility] (I-Stat) Work Phone: Cat Scan Procedures Date Procedure Procedure Detail Performing Clinician Start: 06-24-2023 Hemoglobin A1c/Hemoglobin.total in Blood Maddy Uribe PA-C Work Phone: Start: 10-29-2022 End: 10-29-2022 Mammography Lyndsay Alfred APRN.CNP Work Phone: Start: 02-22-2022 Plethysmography lung volumes w/wo airway resist Ann Farooq MD Work Phone: Start: 10-16-2021 End: 10-16-2021 Screening mammography bi 2-[facility] breast inc cad Ann Farooq MD Work Phone: Start: 08-09-2021 Adult depression screening assessment Screen [facility] Start: 03-09-2021 Colonoscopy Screen [facility] Start: 10-03-2020 History of cholecystectomy History of cholecystectomy Screen [facility] Plan of Treatment Date Care Activity Detail Author Start: 03-09-2031 Colonoscopy COLONOSCOPY [facility] Start: 03-09-2031 COLORECTAL CANCER SCREENING COLORECTAL CANCER SCREENING [facility] Start: 03-09-2031 Screening for malignant neoplasm of colon [facility] Start: 07-08-2024 BP Controlled (<130/80) BP Controlled (<130/80) [place] Start: 06-24-2024 Annual PCP Team Chronic Disease Visit Annual PCP Team Chronic Disease Visit [facility] Start: 06-24-2024 BP Controlled (<130/80) BP Controlled (<130/80) [place] Start: 04-22-2024 Hepatitis B screening Urine Albumin:Creatinine Ratio [facility] Start: 04-22-2024 Hepatitis B surface antibody level LDL Cholesterol [facility] Start: 02-05-2024 Annual PCP Team Chronic Disease Visit Annual PCP Team Chronic Disease Visit [facility] Start: 02-05-2024 BP Controlled (<130/80) BP Controlled (<130/80) [place] Start: 12-23-2023 Hemoglobin A1c measurement HbA1C [facility] Start: 10-30-2023 ANNUAL PCP TEAM CHRONIC DISEASE VISIT ANNUAL PCP TEAM CHRONIC DISEASE VISIT [facility] Start: 10-30-2023 BP CONTROLLED (<130/80) BP CONTROLLED (<130/80) [place] Start: 10-30-2023 Mammography [facility] Start: 10-30-2023 Screening for malignant neoplasm of breast Mammogram Screening [facility] Start: 09-18-2023 ANNUAL PCP TEAM CHRONIC DISEASE VISIT ANNUAL PCP TEAM CHRONIC DISEASE VISIT [facility] Start: 08-05-2023 Hemoglobin A1c measurement HbA1C [facility] Start: 08-05-2023 Hemoglobin A1c/Hemoglobin.total in Blood HbA1C [facility] Start: 06-11-2023 ANNUAL PCP TEAM CHRONIC DISEASE VISIT ANNUAL PCP TEAM CHRONIC DISEASE VISIT [facility] Start: 06-11-2023 BP CONTROLLED (<130/80) BP CONTROLLED (<130/80) [place] Start: 06-08-2023 Hepatitis B surface antibody level LDL CHOLESTEROL [facility] Start: 05-20-2023 Glaucoma screening Dilated Retinal Exam [facility] Start: 05-20-2023 Hepatitis C antibody, confirmatory test DILATED RETINAL EXAM [facility] Start: 05-12-2023 Advance Directive Discussion Advance Directive Discussion [facility] Start: 05-12-2023 Depression Assessment Depression Assessment [facility] Start: 04-08-2023 End: 07-08-2023 ALBUMIN/CREAT RATIO RND UR ALBUMIN/CREAT RATIO RND UR Lab Routine Diabetes mellitus type 2, controlled, without complications (HCC) Expected: 04/08/2023, Expires: 07/08/2023 [facility] Work Phone: Immunizations Immunization Date Immunization Notes Care Provider Almas larios 03-28-2022 pneumococcal (PCV20) vaccine, 20 valent (PREVNAR 20) Liliana Nurse Work Phone: [facility] Work Phone: 02-07-2022 COVID-19 booster vaccine, age 18+ yr, bivalent (MODERNA) Ann Farooq MD Work Phone: [facility] 03-24-2021 COVID-19 vaccine, fu ll dose (MODERNA) Screen [facility] 12-06-2020 pneumococcal polysaccharide vaccine, 23 valent Screen [facility] Work Phone: 08-24-2020 COVID-19 vaccine, fu ll dose (MODERNA) Screen [facility] Work Phone: 07-27-2020 COVID-19 vaccine, fu ll dose (MODERNA) Screen [facility] Work Phone: 04-01-2020 influenza, injectabl e, quadrivalent, contains preservative Screen [facility] 04-01-2020 influenza virus vaccine, unspecified formulation Maddy Uribe PA-C Work Phone: [facility] 04-14-2019 influenza, injectabl e, quadrivalent, contains preservative Screen [facility] Work Phone: 01-17-2010 pneumococcal polysaccharide vaccine, 23 valent Screen [facility] Work Phone: NEGATED: Highlighted row has not occurred!02-19-2022 influenza, high-dose, quadrivalent vaccine (FLUZONE HIGH DOSE QUADRIVALENT) Ann Farooq MD Work Phone: [facility] Work Phone: NEGATED: Highlighted row has not occurred!02-19-2022 pneumococcal (PCV20) vaccine, 20 valent (PREVNAR 20) Ann Farooq MD Work Phone: [facility] Work Phone: Payers Date Payer Category Payer Medicare MEDICARE MEDICAR E A [id number] 2020-Present [phone] [address] [place] [address] Medicare [id number] 2015 Unknown [employer] BLUE CARD PPO OOS [id number] 2015-Present [phone] [address] [place] [address] PPO [id number] 2015 Unknown [employer] BLUE CARD PPO OOS [id number] 2015-Present [phone] [address] [place] [address] PPO [id number] 2015 Unknown [id number] 2015 Unknown [id number] Social History Date Type Detail Facility Start: 08-17-2014 End: 02-19-2022 Tobacco smoking status NHIS Never smoked tobacco [facility] Work Phone: Start: 08-17-2014 End: 02-19-2022 Tobacco use and exposure Smokeless tobacco non-user [facility] Work Phone: Start: 08-14-2021 End: 07-08-2023 Alcohol intake Current non-drinker of alcohol (finding) [facility] Start: 08-09-2021 End: 06-04-2022 History SDOH Alcohol Frequency 3 [facility] Start: 08-09-2021 End: 06-04-2022 History SDOH Alcohol Std Drinks 1 [facility] Start: 08-09-2021 End: 06-04-2022 History SDOH Social Connections Phone 5 [facility] Start: 08-09-2021 End: 06-04-2022 History SDOH Social Connections Get Together 2 [facility] Start: 04-12-2019 Education 17 [facility] Start: 1955 Sex Assigned At Not on file [facility] Start: 1955 Sex Assigned At Female [facility] Start: 11-10-2021 End: 03-12-2022 Exposure to SARS-CoV-2 (event) Not sure [facility] Work Phone: Start: 06-04-2022 History SDOH Alcohol Std Drinks 0 [facility] Start: 06-04-2022 End: 09-17-2022 History of Social function [facility] Start: 06-04-2022 End: 09-17-2022 Social connection and isolation panel [facility] Do you belong to any clubs or organizations such as anabaptism groups, unions, fraternal or athletic groups, or school groups? Yes [facility] Are you now , , , , never or living with a partner? [facility] How often to you hav e a drink containing alcohol? Monthly or less [facility] How many standard dr inks containing alcohol do you have on a typical day? Patient does not drink [facility] How often do you hav e 6 or more drinks on 1 occasion? Less than monthly [facility] Do you feel stress - tense, restless, nervous, or anxious, or unable to sleep at night because your mind is troubled all the time - these days [OSQ] Only a little [facility] (I/We) worried francesca er (my/our) food would run out before (I/we) got money to buy more. Never true [facility] In the past 12 month s, was there a time when you were not able to pay the mortgage or rent on time? No [facility] Start: 11-13-2021 Gender identity Identifies as female gender (finding) [facility] Start: 11-13-2021 Sexual orientation Heterosexual (finding) [facility] How often to you hav e a drink containing alcohol? Never [facility] Medical Equipment Procedure Code Equipment Code Equipment Origin al Text Equipment Identifier Dates Start: 11-20-2021 End: 02-21-2023 Clinical Notes 10-03-2020 to 07-18-2023 Tiffany Rod RT(R) - 07/18/2023 11:20 AM ESTTelephone Encounter - Lili Johnson LPN - 06/30/2023 7:36 AM ESTPatient Maddy Mclaughlin PA-C - 06/24/2023 1:55 PM EST Note Date & Type Note Facility 07-18-2023 Note HNO ID: [id number] Author: TIFFANY ROD RT(R) Service: ? Author Type: Special Effects Makeup Artist Type: Progress Notes Filed: 07/18/2023 13:49 Note Text: Radiology Service Progress Note DATE OF SERVICE: July 18, 2023 TIME: 1:48 PM PATIENT IDENTITY VERIFICATION COMPLETED USING TWO (2) STANDARD IDENTIFIERS: Name and Date of confirmed by patient verbally. FALL SCREENING: Has the patient had 2 falls in the last year or 1 fall with injury or currently using an Ambulatory Assistive Device (Walker, Cane, Wheelchair, Crutches, etc.)? No PATIENT GENDER DATA: Female. status: : No status: NO. PATIENT RELEVANT IMPLANT DATA REVIEWED: Yes PATIENT PRESENTS WITH AN IMPLANTABLE OR ATTACHED CALL CENTER SUPERVISOR: No ALLERGIES: Reviewed and unchanged CONTRAST ALLERGY: NO. EXAM: CT -CONTRAST INDUCED NEPHROPATHY RISK FACTORS: Patient age > 60 years CREATININE: Creatinine Date Value Ref Range Status 07/08/2023 0.85 0.58 - 0.96 mg/dL Final 04/22/2023 0.93 0.58 - 0.96 mg/dL Final 06/08/2022 0.83 0.58 - 0.96 mg/dL Final Estimated Glomerular Filtration Rate Date Value Ref Range Status 07/08/2023 75 >=60 mL/min/1.73m? Final Comment: Estimated Glomerular Filtration Rate (eGFR) is calculated using the 2020 CKD-EPI creatinine equation. This equation utilizes serum creatinine, sex, and age as parameters. The creatinine assay has traceable calibration to isotope dilution-mass spectrometry. Refer to KDIGO guidelines for clinical interpretation. In patients with unstable renal function, e.g. those with acute kidney injury, the eGFR may not accurately reflect actual GFR. eGFR- Date Value Ref Range Status 05/22/2020 >60 Final P.O.C.T. RESULTS: POC done: Yes, See Lab Tab July 18, 2023 TREATMENT: N/A PERIPHERAL IV DATA: Ambulatory: A peripheral IV was started in the Left antecubital site with a Angio cath: 22 gauge. RADIOLOGY DEPARTMENT: CT; Exam(s) Completed: Pelvis SIGNATURE: RT Yesica(R) PATIENT NAME: Clement Weeks DATE: July 18, 2023 TIME: 1:48 PM [facility] 07-18-2023 History of Presen t illness Narrative Radiology Service Progress Note DATE OF SERVICE: July 18, 2023 TIME: 1:48 PM PATIENT IDENTITY VERIFICATION COMPLETED USING TWO (2) STANDARD IDENTIFIERS: Name and Date of confirmed by patient verbally. FALL SCREENING: Has the patient had 2 falls in the last year or 1 fall with injury or currently using an Ambulatory Assistive Device (Walker, Cane, Wheelchair, Crutches, etc.)? No PATIENT GENDER DATA: Female. status: : No status: NO. PATIENT RELEVANT IMPLANT DATA REVIEWED: Yes PATIENT PRESENTS WITH AN IMPLANTABLE OR ATTACHED CALL CENTER SUPERVISOR: No ALLERGIES: Reviewed and unchanged CONTRAST ALLERGY: NO. EXAM: CT -CONTRAST INDUCED NEPHROPATHY RISK FACTORS: Patient age > 60 years CREATININE: Creatinine Date Value Ref Range Status 07/08/2023 0.85 0.58 - 0.96 mg/dL Final 04/22/2023 0.93 0.58 - 0.96 mg/dL Final 06/08/2022 0.83 0.58 - 0.96 mg/dL Final Estimated Glomerular Filtration Rate Date Value Ref Range Status 07/08/2023 75 >=60 mL/min/1.73m Final Comment: Estimated Glomerular Filtration Rate (eGFR) is calculated using the 2020 CKD-EPI creatinine equation. This equation utilizes serum creatinine, sex, and age as parameters. The creatinine assay has traceable calibration to isotope dilution-mass spectrometry. Refer to KDIGO guidelines for clinical interpretation. In patients with unstable renal function, e.g. those with acute kidney injury, the eGFR may not accurately reflect actual GFR. eGFR- Date Value Ref Range Status 05/22/2020 >60 Final P.O.C.T. RESULTS: POC done: Yes, See Lab Tab July 18, 2023 TREATMENT: N/A PERIPHERAL IV DATA: Ambulatory: A peripheral IV was started in the Left antecubital site with a Angio cath: 22 gauge. RADIOLOGY DEPARTMENT: CT; Exam(s) Completed: Pelvis SIGNATURE: RT Yesica(R) PATIENT NAME: Clement Weeks DATE: July 18, 2023 TIME: 1:48 PM documented in this encounter [facility] 06-30-2023 Miscellaneous Notes Patient has been identified by name and date of : No Patient phones for refill(s): Requested Prescriptions Pending Prescriptions Disp Refills Azelastine HCl (OPTIVAR) 0.05 % ophthalmic solution [Pharmacy Med Name: AZELASTINE HCL 0.05% DROPS] 90 mL 2 Sig: USE 1 DROP IN BOTH EYES THREE TIMES A DAY NEEDED. Date of last office visit in primary care: 06/24/2023 Date of next office visit in primary care: 07/22/2023 Please advise. Thank you. Lili Johnson LPN. documented in this encounter [facility] 06-24-2023 Note HNO ID: [id number] Author: MADDY URIBE PA-C Service: ? Author Type: Physician Machine Operator Picker Type: Progress Notes Filed: 06/24/2023 15:13 Note Text: CC: Patient presents with: Yearly Exam: laura, cholesterol, bld sugars average is 90's, worried about about diverticulosis HPI Clement Weeks is a 67 year old female who presents today for routine f/u, review labs as obtained in 05/03. CBC, lipid panel, alb:cr and BMP all unremarkable. Diabetes: Dx in 2009. Clement Weeks denies excessive thirst or increased frequency of urination, chest pain or dyspnea , numbness, new or unusual visual symptoms, low sugar/hypoglycemic reactions, weight loss/gain, lightheadedness/dizziness, and bowel changes/loose stools. On Metformin 500 mg BID and Mounjaro. She is compliant with medication(s) and is tolerating med(s) without any side effects. Home blood sugar readings: On avg 80s-90s Hypoglycemia: No Diabetic diet: Yes, steel cut oatmeal/eggs for breakfast - lower carb overall, eats 3 square meals/day Last Ophthalmology exam was about 2 years ago (in [place])- needs to get established with someone here in [place] Patient's last HgA1C was Hemoglobin A1C (%) Date Value 02/04/2023 5.9 09/17/2022 6.1 08/11/2020 6.4 05/22/2020 6.2 Hemoglobin A1C (POCT) (%) Date Value 08/11/2020 5.7 HTN: Sees Dr. Back. Ms. Weeks indicates a history of hypertension and states that she is feeling well and denies any symptoms referable to elevated blood pressure. States she very infrequently gets chest discomfort, when she awakes - sharp like lightning going through you on her right side. Specifically denies headache, palpitations, dyspnea, and peripheral edema. On Losartan AND Amlodipine . Patient denies any side effects of her medication(s) and is compliant with their regimen. Checks Bp at home sporadically - 138-140/78-80s. Endorses regular aerobic exercise- elliptical and treadmill,does exercise tv. She watches her diet for sodium, low fat and low cholesterol most of the time. Last 3 Encounter BP Readings: Date: BP: 06/24/2023 120/74 02/04/2023 120/62 10/29/2022 126/74 Restrictive lung disease, Sarcoidosis - unclear if true diagnosis, it's kind of latent now. Sees Dr. Lele Mahoney shoulder pain - associated with radiation into R sided chest discomfort. It's not that often. Very short-lived. XR obtained after last visit which revealed mild degenerative changes. C/o deep-seated, throbbing rectal pain. Sometimes it hurts so much I can't even sit. Started last year, but seems to be getting progressively worse ~past 4 months. No blood in stool or black tarry stools. Uses a warm bottle to apply to area, and seems to help. Last colonoscopy was 03/[address] Carroll. Findings as follows: A few small and large-mouthed diverticula were found in the sigmoid colon, transverse colon and ascending colon. Non-bleeding internal hemorrhoids were found. No pain correlated with defecation. Denies any hematochezia or melena. REVIEW OF SYSTEMS See HPI All other systems negative. PAST MEDICAL HISTORY Diagnosis Date Delirium 10/03/2020 Diabetes (HCC) History of cholecystectomy 10/03/2020 Hypertension Hyperthyroidism Pancytopenia (HCC) 10/03/2020 Snoring Vitamin D deficiency 08/08/2016 PAST SURGICAL HISTORY Procedure Laterality Date ABDOMINAL SURGERY HX COLONOSCOPY FLX DX W/COLLJ SPEC WHEN PFRMD 03/09/2021 DILATED FUNDUS EXAM 08/29/2014 Dr.Jeffrey Melendez ESOPHAGOGASTRODUODENOSCOPY TRANSORAL DIAGNOSTIC 09/01/2018 EGD EYE SURGERY HX LAPAROSCOPY SURG CHOLECYSTECTOMY 10/14/2018 Cholecystectomy, lap THYROIDECTOMY SUBTOTAL/PARTIAL ALLERGIES Acetaminophen, Penicillins, and Seasonal Allergies MEDICATIONS MOUNJARO 5 mg/0.5 mL pen injector INJECT 5 MG SUBCUTANEOUSLY WEEKLY Azelastine HCl (OPTIVAR) 0.05 % ophthalmic solution Use 1 Drop in both eyes three times a day as needed. losartan (COZAAR) 50 mg tablet Take 1 tablet by mouth once daily. blood sugar diagnostic (BLOOD GLUCOSE TEST) test strip Test blood sugar(s) 2 times daily. Dx: Type 2 DM - Uncontrolled E11.65 Insulin: No fluticasone (FLONASE) 50 mcg/actuation nasal spray SPRAY 1 SPRAY INTO EACH NOSTRIL EVERY DAY montelukast (SINGULAIR) 10 mg tablet Take 1 tablet by mouth daily at bedtime. metFORMIN (GLUCOPHAGE) 500 mg tablet Take 1 tablet by mouth daily with breakfast AND 1 tablet daily with dinner. tiZANidine HCl (ZANAFLEX) 2 mg capsule TAKE 1 CAPSULE BY MOUTH EVERYDAY AT BEDTIME amLODIPine (NORVASC) 5 mg tablet Take 1 tablet by mouth once daily. aspirin, enteric coated (ASPIRIN, ENTERIC COATED) 81 mg EC tablet Take 81 mg by mouth once daily. tirzepatide (MOUNJARO) 5 mg/0.5 mL pen injector Inject 5 mg subcutaneously one time a week. blood sugar diagnostic (ONETOUCH ULTRA TEST) test strip Use as instructed Blood-Glucose Meter monitoring kit Check blood sugars twice daily. Glucose Meter of Choice (more content not included)... [facility] 06-24-2023 Instructions Maddy Uribe PA-C - 06/24/2023 2:[address] Cesar Leon- - eye doctor Pure Encapsulations Melatonin - Vitamin Brands: Mariajose Dumont, pure encapsulations, integrative therapeutics There are also extended release formulations that slowly secrete over 8 hours- Picreel or Photowhoa documented in this encounter [facility] 06-24-2023 History of Presen t illness Narrative CC: Patient presents with: Yearly Exam: moujero, cholesterol, bld sugars average is 90's, worried about about diverticulosis HPI Aniefportia Weeks is a 67 year old female who presents today for routine f/u, review labs as obtained in 05/03. CBC, lipid panel, alb:cr and BMP all unremarkable. Diabetes: Dx in 2009. Clement Weeks denies excessive thirst or increased frequency of urination, chest pain or dyspnea , numbness, new or unusual visual symptoms, low sugar/hypoglycemic reactions, weight loss/gain, lightheadedness/dizziness, and bowel changes/loose stools. On Metformin 500 mg BID and Mounjaro. She is compliant with medication(s) and is tolerating med(s) without any side effects. Home blood sugar readings: On avg 80s-90s Hypoglycemia: No Diabetic diet: Yes, steel cut oatmeal/eggs for breakfast - lower carb overall, eats 3 square meals/day Last Ophthalmology exam was about 2 years ago (in [place])- needs to get established with someone here in [place] Patient's last HgA1C was Hemoglobin A1C (%) Date Value 02/04/2023 5.9 09/17/2022 6.1 08/11/2020 6.4 05/22/2020 6.2 Hemoglobin A1C (POCT) (%) Date Value 08/11/2020 5.7 HTN: Sees Dr. Back. Ms. Weeks indicates a history of hypertension and states that she is feeling well and denies any symptoms referable to elevated blood pressure. States she very infrequently gets chest discomfort, when she awakes - sharp like lightning going through you on her right side. Specifically denies headache, palpitations, dyspnea, and peripheral edema. On Losartan & Amlodipine . Patient denies any side effects of her medication(s) and is compliant with their regimen. Checks Bp at home sporadically - 138-140/78-80s. Endorses regular aerobic exercise- elliptical and treadmill,does exercise tv. She watches her diet for sodium, low fat and low cholesterol most of the time. Last 3 Encounter BP Readings: Date: BP: 06/24/2023 120/74 02/04/2023 120/62 10/29/2022 126/74 Restrictive lung disease, Sarcoidosis - unclear if true diagnosis, it's kind of latent now. Sees Dr. Lele Mahoney shoulder pain - associated with radiation into R sided chest discomfort. It's not that often. Very short-lived. XR obtained after last visit which revealed mild degenerative changes. C/o deep-seated, throbbing rectal pain. Sometimes it hurts so much I can't even sit. Started last year, but seems to be getting progressively worse ~past 4 months. No blood in stool or black tarry stools. Uses a warm bottle to apply to area, and seems to help. Last colonoscopy was 03/[address] Carroll. Findings as follows: A few small and large-mouthed diverticula were found in the sigmoid colon, transverse colon and ascending colon. Non-bleeding internal hemorrhoids were found. No pain correlated with defecation. Denies any hematochezia or melena. REVIEW OF SYSTEMS See HPI All other systems negative. PAST MEDICAL HISTORY Diagnosis Date Delirium 10/03/2020 Diabetes (HCC) History of cholecystectomy 10/03/2020 Hypertension Hyperthyroidism Pancytopenia (HCC) 10/03/2020 Snoring Vitamin D deficiency 08/08/2016 PAST SURGICAL HISTORY Procedure Laterality Date ABDOMINAL SURGERY HX COLONOSCOPY FLX DX W/COLLJ SPEC WHEN PFRMD 03/09/2021 DILATED FUNDUS EXAM 08/29/2014 Dr.Jeffrey Melendez ESOPHAGOGASTRODUODENOSCOPY TRANSORAL DIAGNOSTIC 09/01/2018 EGD EYE SURGERY HX LAPAROSCOPY SURG CHOLECYSTECTOMY 10/14/2018 Cholecystectomy, lap THYROIDECTOMY SUBTOTAL/PARTIAL ALLERGIES Acetaminophen, Penicillins, and Seasonal Allergies MEDICATIONS MOUNJARO 5 mg/0.5 mL pen injector INJECT 5 MG SUBCUTANEOUSLY WEEKLY Azelastine HCl (OPTIVAR) 0.05 % ophthalmic solution Use 1 Drop in both eyes three times a day as needed. losartan (COZAAR) 50 mg tablet Take 1 tablet by mouth once daily. blood sugar diagnostic (BLOOD GLUCOSE TEST) test strip Test blood sugar(s) 2 times daily. Dx: Type 2 DM - Uncontrolled E11.65 Insulin: No fluticasone (FLONASE) 50 mcg/actuation nasal spray SPRAY 1 SPRAY INTO EACH NOSTRIL EVERY DAY montelukast (SINGULAIR) 10 mg tablet Take 1 tablet by mouth daily at bedtime. metFORMIN (GLUCOPHAGE) 500 mg tablet Take 1 tablet by mouth daily with breakfast AND 1 tablet daily with dinner. tiZANidine HCl (ZANAFLEX) 2 mg capsule TAKE 1 CAPSULE BY MOUTH EVERYDAY AT BEDTIME amLODIPine (NORVASC) 5 mg tablet Take 1 tablet by mouth once daily. aspirin, enteric coated (ASPIRIN, ENTERIC COATED) 81 mg EC tablet Take 81 mg by mouth once daily. tirzepatide (MOUNJARO) 5 mg/0.5 mL pen injector Inject 5 mg subcutaneously one time a week. blood sugar diagnostic (ONETOUCH ULTRA TEST) test strip Use as instructed Blood-Glucose Meter monitoring kit Check blood sugars twice daily. Glucose Meter of Choice - Kit - Dx: Type 2 DM - Controlled E11.9 Gatorade Sports Drink Use as directed for Miralax / Gatorade Bowel Prep Kit FAMILY HISTORY Problem Relation Age of Onset other (lung cancer) Father Stroke Sister Social History Tobacco Use Smoking status: Never Smokeless tobacco: Never Vaping Use Vaping Use: Never used Substance Use Topics Alcohol use: No Drug use: No PHYSICAL EXAM BP 120/74 (BP Site: Left Arm, BP Position: Sitting, BP Cuff Size: Large Adult) Pulse 76 Resp 12 Ht 162.6 cm (5' 4 ) Wt 83.5 kg (184 lb) SpO2 100% BMI 31.58 kg/m General Appearance: well appearing, in no acute distress, alert Pysch: mood and affect broad and appropriate Skin: Skin color, texture, turgor normal for age; Head: normocephalic, atraumatic Lymph nodes: No cervical lymphadenopathy Lungs: Lungs clear to auscultation. No wheezing, rhonchi, rales. Heart: RRR without murmur, gallop, or rubs. No ectopy Abdomen: Normal abdominal exam Extremities: No gross deformities, significant edema, skin discoloration, clubbing or cyanosis. Neurological: Gait normal. No focal neurological deficits. Sensation grossly intact. Component Latest Ref Rng & Units 04/22/2023 WBC 3.70 - 11.00 k/uL 5.11 RBC 3.90 - 5.20 m/uL 4.33 Hemoglobin 11.5 - 15.5 g/dL 12.1 Hematocrit 36.0 - 46.0 % 36.5 MCV 80.0 - 100.0 fL 84.3 MCH 26.0 - 34.0 pg 27.9 MCHC 30.5 - 36.0 g/dL 33.2 RDW-CV 11.5 - 15.0 % 14.0 Platelet Count 150 - 400 k/uL 173 MPV 9.0 - 12.7 fL 12.7 Absolute nRBC <0.01 k/uL <0.01 Glucose 74 - 99 mg/dL 92 BUN 7 - 21 mg/dL 16 Creatinine 0.58 - 0.96 mg/dL 0.93 Sodium 136 - 144 mmol/L 140 Potassium 3.7 - 5.1 mmol/L 4.7 Chloride 97 - 105 mmol/L 106 (H) CO2 22 - 30 mmol/L 26 Anion Gap 9 - 18 mmol/L 8 (L) Calcium 8.5 - 10.2 mg/dL 10.2 eGFR >=60 mL/min/1.73m 68 Cholesterol, Total <200 mg/dL 178 Triglyceride <150 mg/dL 90 HDL Cholesterol >39 mg/dL 60 Non HDL Cholesterol <130 mg/dL 118 Fasting Time hrs 12 VLDL Cholesterol <30 mg/dL 18 TC:HDL Ratio <5.10 2.97 LDL Cholesterol <100 mg/dL 100 (H) LDL:HDL Ratio <2.54 1.67 Creatinine, Ur Random (UCRR) 20.0 - 300.0 mg/dL 91.8 Albumin, Urine Random mg/L <12.0 Albumin/Creat Ratio <30 mg/g <13 DATA REVIEWED: Most recent labs and imaging results. ASSESSMENT/PLAN: 1. Controlled type 2 diabetes mellitus without complication, unspecified whether senior living insulin use (HCC) - ICD9: 250.00, ICD10: E11.9 (primary diagnosis) - HEMOGLOBIN A1C (POC) - TSH BLD - Controlled; POC A1c 5.5 at today's visit - Continue current medications - Counseled on healthy diet and regular exercise 2. Hypertension, essential, benign - ICD9: 401.1, ICD10: I10 - Controlled - Continue current medications - Recommend home blood pressure monitoring, to bring results to next visit - Encouraged sodium restriction, DASH or Mediterranean diet - Recommend regular aerobic exercise 3. Rectal pain - ICD9: 569.42, ICD10: K62.89 History of internal hemorrhoids as noted on prior colonoscopy a couple years back-referral to colorectal surgery for further evaluation and management. - CONSULT TO COLO-RECTAL SURGERY 4. Right shoulder pain, unspecified chronicity - ICD9: 719.41, ICD10: M25.511 Reassurance provided regarding benign exam, and mild degenerative changes noted on XR. No intervention needed at this time. 5. Right-sided chest pain - ICD9: 786.50, ICD10: R07.9 Unclear etiology, All previous cardiac testing has been negative. Mention of possible sarcoidosis in the past, but no official confirmation of diagnosis. F/u with Dr. Royal and Dr. Back (has follow-up with Dr. Nazanin vieyra), as she would like to get all necessary testing done before her insurance changes in October. 6. Vitamin D deficiency - ICD9: 268.9, ICD10: E55.9 History of this-we will check updated levels - VITAMIN D 25 HYDROXY Follow-up 4 weeks additional labs, discuss sleep issues, assess status of colorectal referral Prescription instructions reviewed with patient as applicable. Potential red flag symptoms discussed with the patient. Reviewed appropriate action plan to take if red flag symptoms occur. Patient agreeable to treatment plan. Maddy Uribe PA-C documented in this encounter [facility] 06-24-2023 Nurse Note Seen eye doctor Dr.Richard Salomon last seen 2021 documented in this encounter [facility] 06-16-2023 Miscellaneous Notes Patient has been identified by name and date of : No Patient phones for refill(s): Requested Prescriptions Pending Prescriptions Disp Refills MOUNJARO 5 mg/0.5 mL pen injector [Pharmacy Med Name: MOUNJARO 5 MG/0.5 ML PEN] 2 Sig: INJECT 5 MG SUBCUTANEOUSLY WEEKLY Date of last office visit in primary care: 02/04/2023 Date of next office visit in primary care: 06/13/2023 Please advise. Thank you. Lili Johnson LPN. documented in this encounter [facility] 06-16-2023 Miscellaneous Notes Images from the original note were not included. The office has completed a PA for mounjaro. This has been approved. Prior authorization approved Payer: [employer] Request Reference Number: [id number]. MOUNJARO INJ 5MG/0.5 is approved through 06/16/2024. Your patient may now fill this prescription and it will be covered. Approval Details Authorization number: [id number] Authorized from June 16, 2023 to June 16, 2024 Electronic appeal: Not supported View History Notes Time User Attachment Attachment received from payer. 06/16/2023 9:21 AM [facility], Rx Priorauth In Document Medication Being Authorized tirzepatide (MOUNJARO) 5 mg/0.5 mL pen injector Inject 5 mg subcutaneously one time a week. Dispense: 2 mL Refills: 2 Start: 06/14/2023 End: 09/12/2023 Class: Normal Diagnoses: Controlled type 2 diabetes mellitus without complication, unspecified whether senior living insulin use (HCC) My chart message to pt. documented in this encounter [facility] 06-14-2023 Miscellaneous Notes Okayed Requested Prescriptions Pending Prescriptions Disp Refills tirzepatide (MOUNJARO) 5 mg/0.5 mL pen injector 2 mL 2 Sig: Inject 5 mg subcutaneously one time a week. Date of last office visit in primary care: 02/04/2023 Date of next office visit in primary care: 06/24/2023 Please advise. Thank you. Nile Mathew Ma. documented in this encounter [facility] 04-08-2023 Note Patient Outreach (IN [facility]) CLEMENT WEEKS ([id number]) 1955 F Date Time Provider Department 04/08/23 ANN FAROOQ During your visit today, we recorded the following information about you: Allergies As of Date: 04/08/2023 Noted Allergy Reaction ACETAMINOPHEN 10/07/2016 8 - GI Upset PENICILLINS 08/17/2014 2 - Rash 7 - Swelling 9 - Itching SEASONAL ALLERGIES 08/17/2014 5 - Intolerance Date Reviewed: 02/04/2023 Reviewed by: Lili Johnson E - Fully Assessed Visit Diagnosis:Diabetes mellitus type 2, controlled, without complications (HCC) [E11.9] Order(s):ALBUMIN/CREAT RATIO RND UR [SQUACR] Order #: [id number] FUTURE BASIC METABOLIC PNL [SQBMP] Order #: [id number] FUTURE LIPID PANEL BASIC [SQLIPB] Order #: [id number] FUTURE CBC [SQCBC] Order #: [id number] FUTURE Prescriptions as of 04/11/2023 - blood sugar diagnostic (ONETOUCH ULTRA TEST) test strip Use as instructed - tirzepatide (MOUNJARO) 5 mg/0.5 mL pen injector Inject 5 mg subcutaneously one time a week. - Blood-Glucose Meter monitoring kit Check blood sugars twice daily. Glucose Meter of Choice - Kit - Dx: Type 2 DM - Controlled E11.9 - blood sugar diagnostic (BLOOD GLUCOSE TEST) test strip Test blood sugar(s) 2 times daily. Dx: Type 2 DM - Uncontrolled E11.65 Insulin: No - fluticasone (FLONASE) 50 mcg/actuation nasal spray SPRAY 1 SPRAY INTO EACH NOSTRIL EVERY DAY - losartan (COZAAR) 50 mg tablet TAKE 1 TABLET BY MOUTH EVERY DAY - montelukast (SINGULAIR) 10 mg tablet Take 1 tablet by mouth daily at bedtime. - metFORMIN (GLUCOPHAGE) 500 mg tablet Take 1 tablet by mouth daily with breakfast AND 1 tablet daily with dinner. - tiZANidine HCl (ZANAFLEX) 2 mg capsule TAKE 1 CAPSULE BY MOUTH EVERYDAY AT BEDTIME - Azelastine HCl (OPTIVAR) 0.05 % ophthalmic solution USE 1 DROP IN BOTH EYES THREE TIMES DAILY NEEDED. - Gatorade Sports Drink Use as directed for Miralax / Gatorade Bowel Prep Kit - amLODIPine (NORVASC) 5 mg tablet Take 1 tablet by mouth once daily. - aspirin, enteric coated (ASPIRIN, ENTERIC COATED) 81 mg EC tablet Take 81 mg by mouth once daily. Problem List As Of Date 04/08/2023 Noted Resolved Diabetes mellitus type 2, controlled, without c*08/17/2014 Hypertension, essential, benign [I10] 01/17/2015 Vitamin D deficiency [E55.9] 08/08/2016 02/19/2022 TIA (transient ischemic attack) [G45.9] 08/11/2020 Combined rheumatic disorders of mitral, aortic *12/24/2016 Delirium [R41.0] 10/03/2020 02/19/2022 History of cholecystectomy [Z90.49] 10/03/2020 02/19/2022 Left atrial enlargement [I51.7] 10/07/2016 Restrictive lung disease [J98.4] 10/03/2020 Pancytopenia (HCC) [D61.818] 10/03/2020 02/19/2022 Sarcoidosis [D86.9] 10/03/2020 Sinus bradycardia [R00.1] 10/03/2020 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 Scripts were re-sent on 02/24/23. TC to [facility] to clarify what is needed for patients glucose monitor. This staff was on hold for 15+ mins with no answer from pharmacy. Please try again later. ODALIS Schumacher Could you call on this for me and figure out exactly what they need? The order I sent did state that patient needs to check blood sugars twice daily. The main thing is we want to send in the rx for whatever is best covered by the pharmacy. Maddy Uribe PA-C Patient has been identified by name and date of : No Patient phones for refill(s): Requested Prescriptions Pending Prescriptions Disp Refills Blood-Glucose Meter monitoring kit 1 Each 0 Sig: Glucose Meter of Choice - Kit - Dx: Type 2 DM - Controlled E11.9 Date of last office visit in primary care: 02/04/23 Last 2 Encounter Wt Readings: Date: Wt: 02/04/2023 84.8 kg (187 lb) 10/29/2022 83.5 kg (184 lb) Previous labs/tests for medication: Diabetes: Hemoglobin A1C (%) Date Value 02/04/2023 5.9 09/17/2022 6.1 08/11/2020 6.4 05/22/2020 6.2 Hemoglobin A1C (POCT) (%) Date Value 08/11/2020 5.7 Please advise. Thank you. Lili Johnson documented in this encounter [facility] 02-24-2023 Miscellaneous Notes Patient has been identified by name and date of : No Patient phones for refill(s): Requested Prescriptions Pending Prescriptions Disp Refills blood sugar diagnostic (ONETOUCH ULTRA TEST) test strip 100 Each 11 Sig: Use as instructed tirzepatide (MOUNJARO) 5 mg/0.5 mL pen injector 2 mL 2 Sig: Inject 5 mg subcutaneously one time a week. Blood-Glucose Meter monitoring kit 1 Each 0 Sig: Check blood sugars twice daily. Glucose Meter of Choice - Kit - Dx: Type 2 DM - Controlled E11.9 blood sugar diagnostic (BLOOD GLUCOSE TEST) test strip 100 Strip 1 Sig: Test blood sugar(s) 2 times daily. Dx: Type 2 DM - Uncontrolled E11.65 Insulin: No Date of last office visit in primary care: 02/04/2023 Date of next office visit in primary care: 03/04/2023 Last 2 Encounter Wt Readings: Date: Wt: 02/04/2023 84.8 kg (187 lb) 10/29/2022 83.5 kg (184 lb) Previous labs/tests for medication: Diabetes: Hemoglobin A1C (%) Date Value 02/04/2023 5.9 09/17/2022 6.1 08/11/2020 6.4 05/22/2020 6.2 Hemoglobin A1C (POCT) (%) Date Value 08/11/2020 5.7 Please advise. Thank you. Lili Johnson. documented in this encounter [facility] 02-18-2023 Miscellaneous Notes Per pharmacy, insurance is asking for a 90 day supply prescription. Noemy Shukla LPN documented in this encounter [facility] 02-04-2023 Note HNO ID: [id number] Author: Lourdes Stringer RT(R) Service: Radiology Author Type: Technologist Type: Progress Notes Filed: 02/04/2023 12:10 PM Note Text: Radiology Service Progress Note PATIENT NAME: Clement Weeks DATE OF SERVICE: February 04, 2023 TIME: 12:00 PM PATIENT IDENTITY VERIFICATION COMPLETED USING TWO (2) IDENTIFIERS: Name and Date of confirmed by patient verbally. FALL SCREENING: Has the patient had 2 falls in the last year or 1 fall with injury or currently using an Ambulatory Assistive Device (Walker, Cane, Wheelchair, Crutches, etc.)? No PATIENT GENDER DATA: Female. status: : No status: NO. PATIENT RELEVANT IMPLANT DATA REVIEWED: Not Applicable RADIOLOGY DEPARTMENT: General X-ray: Exam(s) Completed: Upper Extremity X-Ray(s): Shoulder, AP / TRUE AP right PERIPHERAL IV DATA: Not applicable SIGNED BY: RT Sara(R) February 04, 2023 12:00 PM [facility] 02-04-2023 Note HNO ID: [id number] Author: Maddy Uribe PA-C Service: ? Author Type: Physician Machine Operator Picker Type: Progress Notes Filed: 02/05/2023 8:11 AM Note Text: CC: Patient presents with: F/U Diabetes 3 Month: moujoro follow up gain has gone up HPI Clement Weeks is a 67 year old female who presents today for 3-month follow-up. Last visit was on 10/29/[address] Farooq. Diabetes: Clement Weeks denies excessive thirst or increased frequency of urination, chest pain or dyspnea , numbness, tingling or pain in extremities, new or unusual visual symptoms, low sugar/hypoglycemic reactions, weight loss/gain, lightheadedness/dizziness, and bowel changes/loose stools. She is currently on 250 mg BID metformin, as well as as 2.5 mounjaro once weekly. Plan per Dr. Farooq's previous note was to increase to 5 mg mounjaro, and if doing well OK to d/c the metformin altogether. She is compliant with medication(s) and is tolerating med(s) without any side effects. Had some constipation initially but states she had no issues anymore after taking a suppository. Home blood sugar readings: <100 fasting Hypoglycemia: No Diabetic diet: Yes Patient's last HgA1C was Hemoglobin A1C (%) Date Value 09/17/2022 6.1 06/08/2022 6.2 08/11/2020 6.4 05/22/2020 6.2 Hemoglobin A1C (POCT) (%) Date Value 08/11/2020 5.7 Also reports that her right shoulder is causing her pain. Intermittent, has been going on about 1 year. Worse with certain movements. Would like to get an x-ray to further evaluate what's going on. Uses aspercreme which seems to help some. REVIEW OF SYSTEMS See HPI PAST MEDICAL HISTORY Diagnosis Date Delirium 10/03/2020 Diabetes (HCC) History of cholecystectomy 10/03/2020 Hypertension Hyperthyroidism Pancytopenia (HCC) 10/03/2020 Snoring Vitamin D deficiency 08/08/2016 PAST SURGICAL HISTORY Procedure Laterality Date ABDOMINAL SURGERY HX COLONOSCOPY FLX DX W/COLLJ SPEC WHEN PFRMD 03/09/2021 DILATED FUNDUS EXAM 08/29/2014 Dr.Jeffrey Melendez ESOPHAGOGASTRODUODENOSCOPY TRANSORAL DIAGNOSTIC 09/01/2018 EGD EYE SURGERY HX LAPAROSCOPY SURG CHOLECYSTECTOMY 10/14/2018 Cholecystectomy, lap THYROIDECTOMY SUBTOTAL/PARTIAL ALLERGIES Acetaminophen, Penicillins, and Seasonal Allergies MEDICATIONS tirzepatide (MOUNJARO) 2.5 mg/0.5 mL pen injector Inject 2.5 mg subcutaneously one time a week. losartan (COZAAR) 50 mg tablet TAKE 1 TABLET BY MOUTH EVERY DAY blood sugar diagnostic (BLOOD GLUCOSE TEST) test strip Test blood sugar(s) 2 times daily. Dx: Type 2 DM - Uncontrolled E11.65 Insulin: No montelukast (SINGULAIR) 10 mg tablet Take 1 tablet by mouth daily at bedtime. metFORMIN (GLUCOPHAGE) 500 mg tablet Take 1 tablet by mouth daily with breakfast AND 1 tablet daily with dinner. tiZANidine HCl (ZANAFLEX) 2 mg capsule TAKE 1 CAPSULE BY MOUTH EVERYDAY AT BEDTIME Azelastine HCl (OPTIVAR) 0.05 % ophthalmic solution USE 1 DROP IN BOTH EYES THREE TIMES DAILY NEEDED. fluticasone (FLONASE) 50 mcg/actuation nasal spray SPRAY 1 SPRAY INTO EACH NOSTRIL EVERY DAY Gatorade Sports Drink Use as directed for Miralax / Gatorade Bowel Prep Kit amLODIPine (NORVASC) 5 mg tablet Take 1 tablet by mouth once daily. aspirin, enteric coated (ASPIRIN, ENTERIC COATED) 81 mg EC tablet Take 81 mg by mouth once daily. (Patient not taking: No sig reported) FAMILY HISTORY Problem Relation Age of Onset other (lung cancer) Father Stroke Sister Social History Tobacco Use Smoking status: Never Smokeless tobacco: Never Vaping Use Vaping Use: Never used Substance Use Topics Alcohol use: No Drug use: No PHYSICAL EXAM Pulse (!) 53 Temp 36.3 ?C (97.4 ?F) Resp 12 Ht 162.6 cm (5' 4 ) Wt 84.8 kg (187 lb) SpO2 98% BMI 32.10 kg/m? General Appearance: well appearing, in no acute distress, alert, overweight Pysch: mood and affect broad and appropriate Skin: Skin color, texture, turgor normal for age; Lungs: Lungs clear to auscultation. No wheezing, rhonchi, rales. Heart: RRR without murmur, gallop, or rubs. No ectopy Extremities: No deformities, edema, skin discoloration, clubbing or cyanosis. Good capillary refill. Musculoskeletal: No ecchymosis, erythema, or joint swelling, right shoulder with palpable tenderness overlying supraspinatus tendon region. Full range of motion but with mild pain. Neurological: Gait normal. No focal neurological deficits noted. Sensation grossly intact. ASSESSMENT/PLAN: 1. Controlled type 2 diabetes mellitus without complication, unspecified whether extermination supervisor insulin use (HCC) - ICD9: 250.00, ICD10: E11.9 (primary diagnosis) - Control undetermined, due for labs - Increase tirzepatide (Mounjaro), will see how sugars respond to this change prior to discontinuing metformin - BLOOD-GLUCOSE METER KIT - ONETOUCH ULTRA TEST STRIPS - TIRZEPATIDE 5 MG/0.5 ML SUBCUTANEOUS PEN INJECTOR - HGB A1C 2. Right shoulder pain, unspecifi (more content not included)... [facility] 10-30-2022 Miscellaneous Notes October 30, 2022 PID: [id number] Clement Weeks [address] [place] [address] Dear Ms. Weeks, We are pleased to inform you that the results of your recent breast imaging exam on 10/29/2022 are normal. Early detection of cancer is very important. We also understand recommendations regarding breast cancer screening are controversial. Please discuss with your primary care provider which strategy is best for you and whether a mammogram is right for you. Your imaging studies and report will be kept on file at [facility] as part of your permanent medical record and are available for your continuing care. Thank you for allowing us to help in meeting your health care needs. Sincerely, Dr. Linares Interpreting Radiologist [facility] (Normal over 40) documented in this encounter [facility] 10-29-2022 Note HNO ID: [id number] Author: RT Lavon(R) Service: ? Author Type: Technologist Type: Progress Notes Filed: 10/29/2022 1:04 PM Note Text: Radiology Service Progress Note PATIENT NAME: Clement Weeks DATE OF SERVICE: October 29, 2022 TIME: 1:03 PM PATIENT IDENTITY VERIFICATION COMPLETED USING TWO (2) IDENTIFIERS: Name and Date of confirmed by patient verbally. FALL SCREENING: Has the patient had 2 falls in the last year or 1 fall with injury or currently using an Ambulatory Assistive Device (Walker, Cane, Wheelchair, Crutches, etc.)? No PATIENT GENDER DATA: Female. status: : No status: NO. PATIENT RELEVANT IMPLANT DATA REVIEWED: Not Applicable RADIOLOGY DEPARTMENT: Mammography PERIPHERAL IV DATA: Not applicable SIGNED BY: RT Lavon(R) October 29, 2022 1:03 PM [facility] 10-29-2022 Note HNO ID: [id number] Author: Ann Farooq MD Service: ? Author Type: Physician Type: Progress Notes Filed: 10/29/2022 2:50 PM Note Text: Reason for Visit Patient presents with: Follow Up: diabetes-moujoro Clement Weeks is a 67 year old female who presents here today for Above Complaints.. Health Maintenance BP CONTROLLED (<130/80) DTAP,TDAP,TD(1 - Tdap) SHINGRIX VACCINE(1 of 2) ADVANCE DIRECTIVE DISCUSSION MAMMOGRAM HPI Diabetes Mellitus: the mounjaro is working for the patient, her sugars are better controlled, fasting is at target with the medication and so is after eating dinner. she has no major SIDE EFFECTS, just rumbling in the stomach on and off. She denies feeling nausea. She has better bowel movements. She does not feel as hungry and does not feel the need to eat as much. When she eats, she feels full quickly. Has lost around 2 pound of weight. Our plan is to increase the mounajaro to 5 mgs after 3 months and get off the metformin and keep the mounjaro at 5 mgs for while. No problem-specific Assessment AND Plan notes found for this encounter. PAST MEDICAL HISTORY Diagnosis Date Delirium 10/03/2020 Diabetes (HCC) History of cholecystectomy 10/03/2020 Hypertension Hyperthyroidism Pancytopenia (HCC) 10/03/2020 Snoring Vitamin D deficiency 08/08/2016 PAST SURGICAL HISTORY Procedure Laterality Date ABDOMINAL SURGERY HX COLONOSCOPY FLX DX W/COLLJ SPEC WHEN PFRMD 03/09/2021 DILATED FUNDUS EXAM 08/29/2014 Dr.Jeffrey Melendez ESOPHAGOGASTRODUODENOSCOPY TRANSORAL DIAGNOSTIC 09/01/2018 EGD EYE SURGERY HX LAPAROSCOPY SURG CHOLECYSTECTOMY 10/14/2018 Cholecystectomy, lap THYROIDECTOMY SUBTOTAL/PARTIAL FAMILY HISTORY Problem Relation Age of Onset other (lung cancer) Father Stroke Sister Social History Tobacco Use Smoking status: Never Smokeless tobacco: Never Vaping Use Vaping Use: Never used Substance Use Topics Alcohol use: No Drug use: No Past medical history, appointments, medications, allergies reviewed. Pertinent Lab/Diagnostic Studies are reviewed and discussed today Current Outpatient Medications: tirzepatide (MOUNJARO) 2.5 mg/0.5 mL pen injector losartan (COZAAR) 50 mg tablet blood sugar diagnostic (BLOOD GLUCOSE TEST) test strip montelukast (SINGULAIR) 10 mg tablet metFORMIN (GLUCOPHAGE) 500 mg tablet tiZANidine HCl (ZANAFLEX) 2 mg capsule Azelastine HCl (OPTIVAR) 0.05 % ophthalmic solution fluticasone (FLONASE) 50 mcg/actuation nasal spray Gatorade Sports Drink amLODIPine (NORVASC) 5 mg tablet aspirin, enteric coated (ASPIRIN, ENTERIC COATED) 81 mg EC tablet Review of Systems CONSTITUTIONAL: No fevers, chills night sweats, unintended weight loss CARDIOVASCULAR: No chest pain, dyspnea, palpitations, orthopnea, PND, ankle edema. PULM: No dyspnea, unexplained cough. GI: No dysphagia/odynophagia, problematic reflux, constipation, diarrhea, changes in stool habits, hematochezia, melena. : No new urinary complaints, including dysuria, gross hematuria or pyuria. NEURO: No new balance problems, peripheral weakness/paresthesias or numbness of concern. Physical Exam BP 126/74 (BP Site: Left Arm, BP Position: Sitting, BP Cuff Size: Large Adult) Pulse (!) 51 Temp 36.7 ?C (98 ?F) Resp 12 Ht 162.6 cm (5' 4 ) Wt 83.5 kg (184 lb) SpO2 99% BMI 31.58 kg/m? General appearance: Well appearing, alert, in no acute distress, well nourished. Skin: Skin color, texture, turgor normal, no suspicious rashes or lesions Head: Normocephalic, no masses, lesions, tenderness or abnormalities Eyes: Anicteric sclera. Pupils are equally round and reactive to light. Extraocular movements are intact. Lungs: Lungs clear to auscultation. No wheezing, rhonchi, rales Heart: RRR without murmur, gallop, or rubs. Extremities: No deformities, edema, skin discoloration, clubbing or cyanosis. Good capillary refill. ASSESSMENT/PLAN: 1. Controlled type 2 diabetes mellitus without complication, unspecified whether extermination supervisor insulin use (HCC) - ICD9: 250.00, ICD10: E11.9 (primary diagnosis) See hpi for current plan 2. Hypertension, essential, benign - ICD9: 401.1, ICD10: I10 - Controlled - Recommend home blood pressure monitoring, to bring results to next visit - Encouraged sodium restriction, DASH or Mediterranean diet - Recommend regular aerobic exercise Ann Farooq MD [facility] 10-29-2022 History of Presen t illness Narrative Radiology Service Progress Note PATIENT NAME: Clement Weeks DATE OF SERVICE: October 29, 2022 TIME: 1:03 PM PATIENT IDENTITY VERIFICATION COMPLETED USING TWO (2) IDENTIFIERS: Name and Date of confirmed by patient verbally. FALL SCREENING: Has the patient had 2 falls in the last year or 1 fall with injury or currently using an Ambulatory Assistive Device (Walker, Cane, Wheelchair, Crutches, etc.)? No PATIENT GENDER DATA: Female. status: : No status: NO. PATIENT RELEVANT IMPLANT DATA REVIEWED: Not Applicable RADIOLOGY DEPARTMENT: Mammography PERIPHERAL IV DATA: Not applicable SIGNED BY: RT Lavon(R) October 29, 2022 1:03 PM documented in this encounter [facility] 10-29-2022 History of Presen t illness Narrative Reason for Visit Patient presents with: Follow Up: diabetes-slime Weeks is a 67 year old female who presents here today for Above Complaints.. Health Maintenance BP CONTROLLED (<130/80) DTAP,TDAP,TD(1 - Tdap) SHINGRIX VACCINE(1 of 2) ADVANCE DIRECTIVE DISCUSSION MAMMOGRAM HPI Diabetes Mellitus: the keon is working for the patient, her sugars are better controlled, fasting is at target with the medication and so is after eating dinner. she has no major SIDE EFFECTS, just rumbling in the stomach on and off. She denies feeling nausea. She has better bowel movements. She does not feel as hungry and does not feel the need to eat as much. When she eats, she feels full quickly. Has lost around 2 pound of weight. Our plan is to increase the mounajaro to 5 mgs after 3 months and get off the metformin and keep the mounjaro at 5 mgs for while. No problem-specific Assessment & Plan notes found for this encounter. PAST MEDICAL HISTORY Diagnosis Date Delirium 10/03/2020 Diabetes (HCC) History of cholecystectomy 10/03/2020 Hypertension Hyperthyroidism Pancytopenia (HCC) 10/03/2020 Snoring Vitamin D deficiency 08/08/2016 PAST SURGICAL HISTORY Procedure Laterality Date ABDOMINAL SURGERY HX COLONOSCOPY FLX DX W/COLLJ SPEC WHEN PFRMD 03/09/2021 DILATED FUNDUS EXAM 08/29/2014 Dr.Jeffrey Melendez ESOPHAGOGASTRODUODENOSCOPY TRANSORAL DIAGNOSTIC 09/01/2018 EGD EYE SURGERY HX LAPAROSCOPY SURG CHOLECYSTECTOMY 10/14/2018 Cholecystectomy, lap THYROIDECTOMY SUBTOTAL/PARTIAL FAMILY HISTORY Problem Relation Age of Onset other (lung cancer) Father Stroke Sister Social History Tobacco Use Smoking status: Never Smokeless tobacco: Never Vaping Use Vaping Use: Never used Substance Use Topics Alcohol use: No Drug use: No Past medical history, appointments, medications, allergies reviewed. Pertinent Lab/Diagnostic Studies are reviewed and discussed today Current Outpatient Medications: tirzepatide (MOUNJARO) 2.5 mg/0.5 mL pen injector losartan (COZAAR) 50 mg tablet blood sugar diagnostic (BLOOD GLUCOSE TEST) test strip montelukast (SINGULAIR) 10 mg tablet metFORMIN (GLUCOPHAGE) 500 mg tablet tiZANidine HCl (ZANAFLEX) 2 mg capsule Azelastine HCl (OPTIVAR) 0.05 % ophthalmic solution fluticasone (FLONASE) 50 mcg/actuation nasal spray Gatorade Sports Drink amLODIPine (NORVASC) 5 mg tablet aspirin, enteric coated (ASPIRIN, ENTERIC COATED) 81 mg EC tablet Review of Systems CONSTITUTIONAL: No fevers, chills night sweats, unintended weight loss CARDIOVASCULAR: No chest pain, dyspnea, palpitations, orthopnea, PND, ankle edema. PULM: No dyspnea, unexplained cough. GI: No dysphagia/odynophagia, problematic reflux, constipation, diarrhea, changes in stool habits, hematochezia, melena. : No new urinary complaints, including dysuria, gross hematuria or pyuria. NEURO: No new balance problems, peripheral weakness/paresthesias or numbness of concern. Physical Exam BP 126/74 (BP Site: Left Arm, BP Position: Sitting, BP Cuff Size: Large Adult) Pulse (!) 51 Temp 36.7 C (98 F) Resp 12 Ht 162.6 cm (5' 4 ) Wt 83.5 kg (184 lb) SpO2 99% BMI 31.58 kg/m General appearance: Well appearing, alert, in no acute distress, well nourished. Skin: Skin color, texture, turgor normal, no suspicious rashes or lesions Head: Normocephalic, no masses, lesions, tenderness or abnormalities Eyes: Anicteric sclera. Pupils are equally round and reactive to light. Extraocular movements are intact. Lungs: Lungs clear to auscultation. No wheezing, rhonchi, rales Heart: RRR without murmur, gallop, or rubs. Extremities: No deformities, edema, skin discoloration, clubbing or cyanosis. Good capillary refill. ASSESSMENT/PLAN: 1. Controlled type 2 diabetes mellitus without complication, unspecified whether senior living insulin use (HCC) - ICD9: 250.00, ICD10: E11.9 (primary diagnosis) See hpi for current plan 2. Hypertension, essential, benign - ICD9: 401.1, ICD10: I10 - Controlled - Recommend home blood pressure monitoring, to bring results to next visit - Encouraged sodium restriction, DASH or Mediterranean diet - Recommend regular aerobic exercise Ann Farooq MD documented in this encounter [facility] 10-25-2022 Miscellaneous Notes Patient has been identified by name and date of : No Patient phones for refill(s): Requested Prescriptions Pending Prescriptions Disp Refills tirzepatide (MOUNJARO) 2.5 mg/0.5 mL pen injector 2 mL 2 Sig: Inject 2.5 mg subcutaneously one time a week. Date of last office visit in primary care: 09/17/22 Last 2 Encounter Wt Readings: Date: Wt: 09/17/2022 84.4 kg (186 lb) 06/11/2022 82.6 kg (182 lb) Previous labs/tests for medication: Diabetes: Hemoglobin A1C (%) Date Value 09/17/2022 6.1 06/08/2022 6.2 08/11/2020 6.4 05/22/2020 6.2 Hemoglobin A1C (POCT) (%) Date Value 08/11/2020 5.7 Please advise. Thank you. Lili Erickson LPN documented in this encounter [facility] 09-23-2022 Miscellaneous Notes Order is placed but cannot be scheduled before 10/16/22. Thank you Lyndsay Alfred APRN.JENNIFER Pt requested mammogram via [facility]. There was no order. Please advise. documented in this encounter [facility] 09-18-2022 Miscellaneous Notes Have we received a PA for this? Thank you Lyndsay Alfred APRN.JENNIFER Patient has been identified by name and date of : Yes,Patient phones for refill(s): Requested Prescriptions Pending Prescriptions Disp Refills MOUNJARO 2.5 mg/0.5 mL pen injector [Pharmacy Med Name: MOUNJARO 2.5 MG/0.5 ML PEN] 2 Sig: INJECT 2.5 MG SUBCUTANEOUSLY WEEKLY Date of last office visit in primary care: 09/17/2022 6 week follow-up: 10/29/2022 Last 2 Encounter Wt Readings: Date: Wt: 09/17/2022 84.4 kg (186 lb) 06/11/2022 82.6 kg (182 lb) Previous labs/tests for medication: Diabetes: Hemoglobin A1C (%) Date Value 06/08/2022 6.2 02/19/2022 6.3 08/11/2020 6.4 05/22/2020 6.2 Hemoglobin A1C (POCT) (%) Date Value 08/11/2020 5.7 Please advise. Thank you. Noemy Shukla LPN documented in this encounter [facility] 09-17-2022 Note HNO ID: [id number] Author: Ann Farooq MD Service: ? Author Type: Physician Type: Progress Notes Filed: 09/17/2022 10:40 AM Note Text: Reason for Visit Patient presents with: Recheck: 3 month Clement Weeks is a 67 year old female who presents here today for Above Complaints.. Health Maintenance DTAP,TDAP,TD(1 - Tdap) SHINGRIX VACCINE(1 of 2) ADVANCE DIRECTIVE DISCUSSION MAMMOGRAM HPI Diabetes Mellitus: patient is usually well controlled with metformin which she has been on for many years but of late she has been having trouble with the medication. She has some bloating, diarrhea and abdominal pain which happens once in a while, but it makes it difficult to go out at that time due to the sudden onset of diarrhea. She is usually well controlled with diet and exercise and medications BMI is 31. She was exercising 3 days a week but the past month she was not doing it for some personal limitations and will restart it, She walks for 1 hour. HTN: BP controlled today. Checks BP at home. Compliant with medications. Denies any chest pain, palpitations, SOB, swelling in the feet. Careful with diet to avoid salt, trying to eat more fruits and vegetables, exercises regularly No problem-specific Assessment AND Plan notes found for this encounter. PAST MEDICAL HISTORY Diagnosis Date Delirium 10/03/2020 Diabetes (HCC) History of cholecystectomy 10/03/2020 Hypertension Hyperthyroidism Pancytopenia (HCC) 10/03/2020 Snoring Vitamin D deficiency 08/08/2016 PAST SURGICAL HISTORY Procedure Laterality Date ABDOMINAL SURGERY HX COLONOSCOPY FLX DX W/COLLJ SPEC WHEN PFRMD 03/09/2021 DILATED FUNDUS EXAM 08/29/2014 Dr.Jeffrey Melendez ESOPHAGOGASTRODUODENOSCOPY TRANSORAL DIAGNOSTIC 09/01/2018 EGD EYE SURGERY HX LAPAROSCOPY SURG CHOLECYSTECTOMY 10/14/2018 Cholecystectomy, lap THYROIDECTOMY SUBTOTAL/PARTIAL FAMILY HISTORY Problem Relation Age of Onset other (lung cancer) Father Stroke Sister Social History Tobacco Use Smoking status: Never Smokeless tobacco: Never Vaping Use Vaping Use: Never used Substance Use Topics Alcohol use: No Drug use: No Past medical history, appointments, medications, allergies reviewed. Pertinent Lab/Diagnostic Studies are reviewed and discussed today Current Outpatient Medications: blood sugar diagnostic (BLOOD GLUCOSE TEST) test strip montelukast (SINGULAIR) 10 mg tablet metFORMIN (GLUCOPHAGE) 500 mg tablet losartan (COZAAR) 50 mg tablet tiZANidine HCl (ZANAFLEX) 2 mg capsule Azelastine HCl (OPTIVAR) 0.05 % ophthalmic solution fluticasone (FLONASE) 50 mcg/actuation nasal spray Gatorade Sports Drink amLODIPine (NORVASC) 5 mg tablet aspirin, enteric coated (ASPIRIN, ENTERIC COATED) 81 mg EC tablet Review of Systems CONSTITUTIONAL: No fevers, chills night sweats, unintended weight loss CARDIOVASCULAR: No chest pain, dyspnea, palpitations, orthopnea, PND, ankle edema. PULM: No dyspnea, unexplained cough. GI: No dysphagia/odynophagia, problematic reflux, constipation, diarrhea, changes in stool habits, hematochezia, melena. : No new urinary complaints, including dysuria, gross hematuria or pyuria. NEURO: No new balance problems, peripheral weakness/paresthesias or numbness of concern. Physical Exam BP 130/80 Pulse 100 Temp 36.7 ?C (98 ?F) Resp 16 Wt 84.4 kg (186 lb) SpO2 96% BMI 31.93 kg/m? General appearance: Well appearing, alert, in no acute distress, well nourished. Skin: Skin color, texture, turgor normal, no suspicious rashes or lesions Head: Normocephalic, no masses, lesions, tenderness or abnormalities Eyes: Anicteric sclera. Pupils are equally round and reactive to light. Extraocular movements are intact. Lungs: Lungs clear to auscultation. No wheezing, rhonchi, rales Heart: RRR without murmur, gallop, or rubs. Extremities: No deformities, edema, skin discoloration, clubbing or cyanosis. Good capillary refill. ASSESSMENT/PLAN: 1. Controlled type 2 diabetes mellitus without complication, unspecified whether senior living insulin use (HCC) - ICD9: 250.00, ICD10: E11.9 (primary diagnosis) To cut out the evening dose of metformin Went over the side effect profile for the drug with the patient, mentioned every one of it , discussed appropriate concerns , alternatives and benefits of the drug, - TIRZEPATIDE 2.5 MG/0.5 ML SUBCUTANEOUS PEN INJECTOR 2. Hypertension, essential, benign - ICD9: 401.1, ICD10: I10 - good control - Recommended regular aerobic exercise. - Recommend home blood pressure monitoring, to bring results in on next visit - Goal of BP <130/80 3. Sarcoidosis - ICD9: 135, ICD10: D86.9 She is being monitored by Dr Royal 4. BMI 31.0-31.9,adult - ICD9: V85.31, ICD10: Z68.31 A little high and may benefit from Mounjaro 5. Restrictive lung disease - ICD9: 518.89, ICD10: J98.4 Stable Ann Farooq MD [facility] 09-17-2022 History of Presen t illness Narrative Reason for Visit Patient presents with: Recheck: 3 month Clement Weeks is a 67 year old female who presents here today for Above Complaints.. Health Maintenance DTAP,TDAP,TD(1 - Tdap) SHINGRIX VACCINE(1 of 2) ADVANCE DIRECTIVE DISCUSSION MAMMOGRAM HPI Diabetes Mellitus: patient is usually well controlled with metformin which she has been on for many years but of late she has been having trouble with the medication. She has some bloating, diarrhea and abdominal pain which happens once in a while, but it makes it difficult to go out at that time due to the sudden onset of diarrhea. She is usually well controlled with diet and exercise and medications BMI is 31. She was exercising 3 days a week but the past month she was not doing it for some personal limitations and will restart it, She walks for 1 hour. HTN: BP controlled today. Checks BP at home. Compliant with medications. Denies any chest pain, palpitations, SOB, swelling in the feet. Careful with diet to avoid salt, trying to eat more fruits and vegetables, exercises regularly No problem-specific Assessment & Plan notes found for this encounter. PAST MEDICAL HISTORY Diagnosis Date Delirium 10/03/2020 Diabetes (HCC) History of cholecystectomy 10/03/2020 Hypertension Hyperthyroidism Pancytopenia (HCC) 10/03/2020 Snoring Vitamin D deficiency 08/08/2016 PAST SURGICAL HISTORY Procedure Laterality Date ABDOMINAL SURGERY HX COLONOSCOPY FLX DX W/COLLJ SPEC WHEN PFRMD 03/09/2021 DILATED FUNDUS EXAM 08/29/2014 Dr.Jeffrey Melendez ESOPHAGOGASTRODUODENOSCOPY TRANSORAL DIAGNOSTIC 09/01/2018 EGD EYE SURGERY HX LAPAROSCOPY SURG CHOLECYSTECTOMY 10/14/2018 Cholecystectomy, lap THYROIDECTOMY SUBTOTAL/PARTIAL FAMILY HISTORY Problem Relation Age of Onset other (lung cancer) Father Stroke Sister Social History Tobacco Use Smoking status: Never Smokeless tobacco: Never Vaping Use Vaping Use: Never used Substance Use Topics Alcohol use: No Drug use: No Past medical history, appointments, medications, allergies reviewed. Pertinent Lab/Diagnostic Studies are reviewed and discussed today Current Outpatient Medications: blood sugar diagnostic (BLOOD GLUCOSE TEST) test strip montelukast (SINGULAIR) 10 mg tablet metFORMIN (GLUCOPHAGE) 500 mg tablet losartan (COZAAR) 50 mg tablet tiZANidine HCl (ZANAFLEX) 2 mg capsule Azelastine HCl (OPTIVAR) 0.05 % ophthalmic solution fluticasone (FLONASE) 50 mcg/actuation nasal spray Gatorade Sports Drink amLODIPine (NORVASC) 5 mg tablet aspirin, enteric coated (ASPIRIN, ENTERIC COATED) 81 mg EC tablet Review of Systems CONSTITUTIONAL: No fevers, chills night sweats, unintended weight loss CARDIOVASCULAR: No chest pain, dyspnea, palpitations, orthopnea, PND, ankle edema. PULM: No dyspnea, unexplained cough. GI: No dysphagia/odynophagia, problematic reflux, constipation, diarrhea, changes in stool habits, hematochezia, melena. : No new urinary complaints, including dysuria, gross hematuria or pyuria. NEURO: No new balance problems, peripheral weakness/paresthesias or numbness of concern. Physical Exam BP 130/80 Pulse 100 Temp 36.7 C (98 F) Resp 16 Wt 84.4 kg (186 lb) SpO2 96% BMI 31.93 kg/m General appearance: Well appearing, alert, in no acute distress, well nourished. Skin: Skin color, texture, turgor normal, no suspicious rashes or lesions Head: Normocephalic, no masses, lesions, tenderness or abnormalities Eyes: Anicteric sclera. Pupils are equally round and reactive to light. Extraocular movements are intact. Lungs: Lungs clear to auscultation. No wheezing, rhonchi, rales Heart: RRR without murmur, gallop, or rubs. Extremities: No deformities, edema, skin discoloration, clubbing or cyanosis. Good capillary refill. ASSESSMENT/PLAN: 1. Controlled type 2 diabetes mellitus without complication, unspecified whether senior living insulin use (HCC) - ICD9: 250.00, ICD10: E11.9 (primary diagnosis) To cut out the evening dose of metformin Went over the side effect profile for the drug with the patient, mentioned every one of it , discussed appropriate concerns , alternatives and benefits of the drug, - TIRZEPATIDE 2.5 MG/0.5 ML SUBCUTANEOUS PEN INJECTOR 2. Hypertension, essential, benign - ICD9: 401.1, ICD10: I10 - good control - Recommended regular aerobic exercise. - Recommend home blood pressure monitoring, to bring results in on next visit - Goal of BP <130/80 3. Sarcoidosis - ICD9: 135, ICD10: D86.9 She is being monitored by Dr Royal 4. BMI 31.0-31.9,adult - ICD9: V85.31, ICD10: Z68.31 A little high and may benefit from Mounjaro 5. Restrictive lung disease - ICD9: 518.89, ICD10: J98.4 Stable Ann Farooq MD documented in this encounter [facility] 06-12-2022 Miscellaneous Notes Ease sent to the pharmacy generic machine and supplies. Then pharmacy can dispense whatever is covered with pts insurance MARIELLA completed for her contour test strips. This has been denied. Plan Prescriber name: Ann Farooq Prescriber fax: [phone] NOTICE OF DENIAL Dear Clement Weeks, On 06/11/2022, we received a request from your provider for coverage of Contour Sujata Bld Gluc. An appropriate clinician reviewed all of the information you and/or your provider sent to us. Unfortunately, we must deny coverage. Why was my request denied? This request was denied because you did not meet the following requirements: Based on the information provided, you do not meet the established medication-specific criteria or guidelines for Contour Blood Glucose Test Strips at this time. Per your health plan's criteria, this drug is covered if you meet the following: You are using this test strip in association with an insulin pump (please submit documentation including name of insulin pump). The information provided does not show that you meet the criteria listed above. Please speak with your doctor about your choices. Reviewed by: higinio, R.Ph. How can I obtain the material(s) used to review this request? You may request, free of charge, a copy of the drug coverage policy, actual benefit provision, guideline, protocol or other information that factored into the decision, including the diagnosis code and the treatment code and their corresponding meanings, by calling us at documented in this encounter [facility] 06-11-2022 History of Presen t illness Narrative Reason for Visit Patient presents with: F/U HTN 3 Month Clement Weeks is a 66 year old female who presents here today for Above Complaints.. Health Maintenance BP CONTROLLED (<130/80) DTAP,TDAP,TD(1 - Tdap) SHINGRIX VACCINE(1 of 2) INFLUENZA(1) ADVANCE DIRECTIVE DISCUSSION DEPRESSION ASSESSMENT HPI Been to see Dr Royal with lung volumes who noted that there was no significant changes in lung volumes from the past and no active management at this time. HTN: Compliant with medications. Denies any chest pain, palpitations, or edema. No SOB. Doesn't check BP at home generally. Careful with diet to avoid salt, trying to eat more fruits and vegetables, exercises regularly. She has an infected follicle that hurts her once in a while. May be going to move to [place] or [place] where her children. Diabetes Mellitus: usually the sugars are well controlled, hba1c is 6.2. regular with medication, HPL: Reviewed test results with patient , takes medications regularly , does not report side effects. Conscious to avoid red meats, full fat dairy and its by products. Exercising 3 to 5 times a week. No problem-specific Assessment & Plan notes found for this encounter. PAST MEDICAL HISTORY Diagnosis Date Delirium 10/03/2020 Diabetes (HCC) History of cholecystectomy 10/03/2020 Hypertension Hyperthyroidism Pancytopenia (HCC) 10/03/2020 Snoring Vitamin D deficiency 08/08/2016 PAST SURGICAL HISTORY Procedure Laterality Date ABDOMINAL SURGERY HX COLONOSCOPY FLX DX W/COLLJ SPEC WHEN PFRMD 03/09/2021 DILATED FUNDUS EXAM 08/29/2014 Dr.Jeffrey Melendez ESOPHAGOGASTRODUODENOSCOPY TRANSORAL DIAGNOSTIC 09/01/2018 EGD EYE SURGERY HX LAPAROSCOPY SURG CHOLECYSTECTOMY 10/14/2018 Cholecystectomy, lap THYROIDECTOMY SUBTOTAL/PARTIAL FAMILY HISTORY Problem Relation Age of Onset other (lung cancer) Father Stroke Sister Social History Tobacco Use Smoking status: Never Smokeless tobacco: Never Vaping Use Vaping Use: Never used Substance Use Topics Alcohol use: No Drug use: No Past medical history, appointments, medications, allergies reviewed. Pertinent Lab/Diagnostic Studies are reviewed and discussed today Current Outpatient Medications: losartan (COZAAR) 50 mg tablet tiZANidine HCl (ZANAFLEX) 2 mg capsule montelukast (SINGULAIR) 10 mg tablet blood sugar diagnostic (CONTOUR TEST STRIPS) test strip Azelastine HCl (OPTIVAR) 0.05 % ophthalmic solution fluticasone (FLONASE) 50 mcg/actuation nasal spray metFORMIN (GLUCOPHAGE) 500 mg tablet Gatorade Sports Drink amLODIPine (NORVASC) 5 mg tablet aspirin, enteric coated (ASPIRIN, ENTERIC COATED) 81 mg EC tablet Review of Systems CONSTITUTIONAL: No fevers, chills night sweats, unintended weight loss CARDIOVASCULAR: No chest pain, dyspnea, palpitations, orthopnea, PND, ankle edema. PULM: No dyspnea, unexplained cough. GI: No dysphagia/odynophagia, problematic reflux, constipation, diarrhea, changes in stool habits, hematochezia, melena. : No new urinary complaints, including dysuria, gross hematuria or pyuria. NEURO: No new balance problems, peripheral weakness/paresthesias or numbness of concern. Physical Exam BP 128/68 (BP Site: Left Arm, BP Position: Sitting, BP Cuff Size: Large Adult) Pulse (!) 52 Temp 36.8 C (98.2 F) Resp 12 Ht 162.6 cm (5' 4 ) Wt 82.6 kg (182 lb) SpO2 100% BMI 31.24 kg/m General appearance: Well appearing, alert, in no acute distress, well nourished. Skin: Skin color, texture, turgor normal, no suspicious rashes or lesions Head: Normocephalic, no masses, lesions, tenderness or abnormalities Eyes: Anicteric sclera. Pupils are equally round and reactive to light. Extraocular movements are intact. Lungs: Lungs clear to auscultation. No wheezing, rhonchi, rales Heart: RRR without murmur, gallop, or rubs. Extremities: No deformities, edema, skin discoloration, clubbing or cyanosis. Good capillary refill. ASSESSMENT/PLAN: 1. Hypercalcemia - ICD9: 275.42, ICD10: E83.52 (primary diagnosis) - VITAMIN D1 25-DIHYDR - VITAMIN D 25 HYDROXY - PTH INTACT BLD - PTH RELATED PEPTIDE 2. Environmental allergies - ICD9: V15.09, ICD10: Z91.09 - MONTELUKAST 10 MG TABLET 3. Hospital discharge follow-up - ICD9: V67.59, ICD10: Z09 - METFORMIN 500 MG TABLET 4. Controlled type 2 diabetes mellitus without complication, unspecified whether senior living insulin use (HCC) - ICD9: 250.00, ICD10: E11.9 She is exercising inside at this point. 5. Hypertension, essential, benign - ICD9: 401.1, ICD10: I10 - good control - Recommended regular aerobic exercise. - Recommend home blood pressure monitoring, to bring results in on next visit - Goal of BP <130/80 Ann Farooq MD documented in this encounter [facility] 05-16-2022 Miscellaneous Notes [facility] office requesting copy of PFT to be faxed to [phone] patient has appt there today. Printed PFT and faxed as requested. documented in this encounter [facility] 04-17-2022 Miscellaneous Notes Patient last visit with PCP 02/19/22 Follow up appointment scheduled 05/21/22 Leigha Lewis Ma documented in this encounter [facility] 04-15-2022 Miscellaneous Notes Patient has been identified by name and date of : Yes Patient phones for refill(s): Requested Prescriptions Pending Prescriptions Disp Refills tiZANidine HCl (ZANAFLEX) 2 mg capsule [Pharmacy Med Name: TIZANIDINE HCL 2 MG CAPSULE] 90 capsule 1 Sig: TAKE 1 CAPSULE BY MOUTH EVERYDAY AT BEDTIME Date of last office visit in primary care: 02/19/2022 Last 2 Encounter Wt Readings: Date: Wt: 03/12/2022 83 kg (183 lb) 03/09/2022 82.7 kg (182 lb 6.4 oz) Previous labs/tests for medication: Not applicable Please advise. Thank you. Lili Erickson LPN documented in this encounter [facility] 03-28-2022 History of Presen t illness Narrative Patient presents for Pneumococcal vaccine. Denies any problems at this time. Tolerated injection well. Codie Reyes LPN documented in this encounter [facility] 03-20-2022 Miscellaneous Notes Pt calling stating office was to fax pt's results from her breathing tests to Dr Royal. States their office does not have this and it is needed before they can schedule pt. Advised pt this nurse would fax results to their office. She will call them tomorrow to make sure office received them. Results have been faxed per pt's request. Terrence Michael LPN documented in this encounter [facility] 03-12-2022 Procedure note Procedure(s): INCISION & DRAINAGE ABSCESS COMPLICATED/MULTIPLE Pre-Procedure Diagnose(s): Perianal abscess Post-Procedure Diagnose(s): Perianal abscess After informed consent was given, patient was brought to the procedure room. Appropriate time out protocol was followed. The patient was placed in the right lateral decubitis position. The abscess was identified it was at the 4-5 oclock position. The skin was cleansed with [place]. The skin and subcutaneous tissues in and around the perianal abscess were infiltrated with 1% xylocaine with epinephrine. An elliptical skin incision was made at the previous site. The skin incision was made to widely open the cavity and thus unroof the abscessed cavity. Probing of the cavity revealed no fistulous tract. The cavity was then drained. There was minimal fluid noted. Debridement was done of senescent granulation tissue and non viable fatty tissue. Hemostasis was achieved with pressure. The wound was densely packed with gauze. Gauze dressing was applied over the wound. Complications: none EBL: minimal documented in this encounter [facility] 03-12-2022 History of Presen t illness Narrative Clement Weeks 1955 REFERRING PHYSICIAN: Dania Harrison PA-C CHIEF COMPLAINT: Consult and Follow Up (Right buttock abscess ) HPI: The patient is a 66 year old female presents with perianal abscess. She has noted this for about She underwent I&D at the urgent care clinic on 03/09/2022, however, she still notes pain/swelling/drainage in the area. She admits to diabetes. She denies cigarettes use. PAST MEDICAL HISTORY Diagnosis Date Delirium 10/03/2020 Diabetes (HCC) History of cholecystectomy 10/03/2020 Hypertension Hyperthyroidism Pancytopenia (HCC) 10/03/2020 Snoring Vitamin D deficiency 08/08/2016 PAST SURGICAL HISTORY Procedure Laterality Date ABDOMINAL SURGERY HX COLONOSCOPY FLX DX W/COLLJ SPEC WHEN PFRMD 03/09/2021 DILATED FUNDUS EXAM 08/29/2014 Dr.Jeffrey Melendez ESOPHAGOGASTRODUODENOSCOPY TRANSORAL DIAGNOSTIC 09/01/2018 EGD EYE SURGERY HX LAPAROSCOPY SURG CHOLECYSTECTOMY 10/14/2018 Cholecystectomy, lap THYROIDECTOMY SUBTOTAL/PARTIAL Current Outpatient Medications Medication Sig doxycycline (VIBRA-TABS) 100 mg tablet Take 1 tablet by mouth twice daily for 7 days. tiZANidine HCl (ZANAFLEX) 2 mg capsule Take 1 capsule by mouth daily at bedtime. montelukast (SINGULAIR) 10 mg tablet Take 1 tablet by mouth daily at bedtime. blood sugar diagnostic (CONTOUR TEST STRIPS) test strip Test blood sugar(s) 2 times daily. Dx: Type 2 DM - Uncontrolled E11.65 Insulin: No Azelastine HCl (OPTIVAR) 0.05 % ophthalmic solution USE 1 DROP IN BOTH EYES THREE TIMES DAILY NEEDED. losartan (COZAAR) 50 mg tablet TAKE 1 TABLET BY MOUTH EVERY DAY fluticasone (FLONASE) 50 mcg/actuation nasal spray SPRAY 1 SPRAY INTO EACH NOSTRIL EVERY DAY metFORMIN (GLUCOPHAGE) 500 mg tablet Take 1 tablet by mouth daily with breakfast AND 1 tablet daily with dinner. Gatorade Sports Drink Use as directed for Miralax / Gatorade Bowel Prep Kit amLODIPine (NORVASC) 5 mg tablet Take 1 tablet by mouth once daily. aspirin, enteric coated (ASPIRIN, ENTERIC COATED) 81 mg EC tablet Take 81 mg by mouth once daily. (Patient not taking: Reported on 03/12/2022) ALLERGIES: Acetaminophen, Penicillins, and Seasonal Allergies PERSONAL HISTORY: Social History Tobacco Use Smoking status: Never Smokeless tobacco: Never Vaping Use Vaping Use: Never used Substance Use Topics Alcohol use: No Drug use: No FAMILY HISTORY Problem Relation Age of Onset other (lung cancer) Father Stroke Sister The review of systems data was entered by the nurse and reviewed by hi Nursing Notes: Daniela Dietrich LPN 03/12/2022 10:11 AM Signed REVIEW OF SYSTEMS: General: The patient denies fatigue, denies weight loss, denies weight gain, denies feeling hot, and denies feelings of cold. Eyes: The patient denies glaucoma, notes eye injury/surgery, wears glasses or contacts. Ear/Nose/Throat: The patient notes allergies, denies hayfever, denies ear infections, and denies bloody noses. Cardiovascular: The patient denies chest pain, denies heart disease, notes high blood pressure,denies cardiac stent, denies prior heart attack, denies irregular heart beat, denies high cholesterol, denies poor circulation, denies heart failure, other cardiac issues, denies claudication, denies cold feet, denies peripheral arterial stent. Respiratory: The patient denies tuberculosis, denies pneumonia, denies frequent cough, denies pulmonary embolism, denies shortness of breath, and denies coughing up blood. Gastrointestinal: The patient denies difficulty swallowing, denies acid reflux, denies ulcers, denies vomiting, denies jaundice/hepatitis, denies gallbladder problems, denies black or tarry stools, denies hemorrhoids, denies bleeding from rectum, denies diverticulitis, denies constipation, denies diarrhea, denies loss of stool control, and denies hernias. Kidney/Bladder: The patient notes kidney stones, denies urine infections, and denies bloody urine. Skin: The patient denies a history of skin cancer, denies bleeding/changing moles, and denies a history of skin rash. Neurologic: The patient denies a history of epilepsy/convulsions, denies headaches, denies head/spinal injuries, and denies stroke/TIA. Psychiatric: The patient denies psychiatric medications, denies depression, and denies voices, denies substance abuse. Endocrine: The patient denies thyroid disorders, notes diabetes, and denies hormonal problems. Hematologic: The patient denies a history of bruising, denies bleeding, and denies anemia, denies blood clots. Infections: The patient denies a history of measles and mumps, denies rheumatic fever, and denies sexually transmitted diseases. Musculoskeletal: The patient denies back pain/injury, denies back problems, denies sciatica, denies knee/foot trouble, denies arthritis, or denies gout. When was patient's last Mammogram screening? 2021 Last Colonoscopy: 2020 Daniela Dietrich LPN PHYSICAL EXAMINATION: General: The patient is 66 year old female, well nourished, well hydrated in no acute distress. The patient is oriented to time, place, and person. VITALS: Blood pressure 144/82, pulse 78, temperature 36.2 C (97.2 F), height 162.6 cm (5' 4 ), weight 83 kg (183 lb), SpO2 99 %. Body mass index is 31.41 kg/m . Head: Normal cephalic, atraumatic Eyes: pupils are equally round, sclera are clear/anicteric Neck is supple with no tracheal deviation Respiratory: Normal respiratory excursion and pattern. Abdominal exam: benign Genitalia - right perianal area with 1.5 cm swelling with purulent drainage emanating Extremities: no clubbing, cyanosis or edema. Neuro: non focal Psych: normal mood Assessment IMPRESSION: right sided perianal abscess PLAN: I have discussed the above with the patient. I have offered incision and drainage of this area.. I have explained the procedure to the patient. I have counseled the patient as to the risks of the procedure, including but not limited to: infection, bleeding, injury to any blood vessels/nerves, scar tissue, continued infection, complications of anesthesia, etc. - the patient understands. The patient wishes to proceed. She tolerated procedure well. I have answered all questions to the patient s satisfaction and the patient has no further questions. I have confirmed and edited as necessary, the PFSH and ROS obtained by others. Consultation requested by Dania Harrison for an opinion regarding patient's abscess. My final recommendations will be communicated back to the requesting physician by way of shared Medical record or letter to requesting physician via US mail. . Diagnoses: (L02.91) Abscess Return to Clinic: The patient is instructed to follow-up with me as per needed. Medical Decision Making: Risk: Low: Low risk from testing/treatment Medical Decision Making Level: 2 - Straightforward Sun Carroll MD UNIVERSAL PROTOCOL / SAFETY CHECKLIST Procedure to be Performed: Incision and drainage of perineal abscess Sign In: A Moment of CARE was completed. Personnel directly involved with the procedure wore the appropriate PPE (Personal Protective Equipment). No special equipment needed. Patient/Surrogate Stated/Verified: PATIENT VERIFIED(optional for EMERGENT procedures): Patient name, Date of , Relevant allergies, and The intended procedure Time Out Communication: Intended patient and procedure match the source documents. Consent documented and matches the intended procedure. No relevant labs, photos, and/or imaging studies were applicable for review. Correct side/site marked and visible. Medications required for procedure verified. No fire risk assessment and interventions applicable. No implant(s) inserted. Sign Out: SIGN OUT (optional for EMERGENT procedures): No specimen collected. No instruments, equipment or retained foreign bodies applicable. Post-procedure follow-up management communicated and Plan of Care Visit completed when applicable. Ashley Mendiola RN documented in this encounter [facility] 03-12-2022 Instructions Ashley Mendiola RN - 03/12/2022 10:48 AM EDT The following instructions are important for you related to your office visit today with the [facility]. Instructions After I & D You are instructed to remove the packing in 2 days. If the dressing becomes soaked or had significant drainage, the dressing should be changed. If there is minor bleeding from this skin edge, you should hold pressure on the incision. If there is continued bleeding, you should contact our office immediately. Wash the wound with gentle soap and water. You may shower. You may sit in a bathtub with water as warm as you can stand it, with 2 cups of epsom salt. Once the dressing is removed, after you have a bowel movement, please use either a wash cloth or wet wipe to cleanse the area. You may also shower off. The wound should not be immersed in a pool or hot tub. Can use the following pain regimen: Acetaminophen (Tylenol) 650 mg, then in 3-4 hours take 600 mg ibuprofen (Motrin), then in 3-4 hours take 650 mg acetaminophen, then in 3-4 hours take 600 mg ibuprofen and so on and continue this over 1-2 days. If the wound shows signs of redness, inflammation, or purulent drainage, you should contact our office immediately. If you note any additional difficulties, questions, or concerns, you should contact our office immediately @ [phone] and ask to be transferred to the General Surgery department. documented in this encounter [facility] 03-12-2022 Nurse Note REVIEW OF SYSTEMS: General: The patient denies fatigue, denies weight loss, denies weight gain, denies feeling hot, and denies feelings of cold. Eyes: The patient denies glaucoma, notes eye injury/surgery, wears glasses or contacts. Ear/Nose/Throat: The patient notes allergies, denies hayfever, denies ear infections, and denies bloody noses. Cardiovascular: The patient denies chest pain, denies heart disease, notes high blood pressure,denies cardiac stent, denies prior heart attack, denies irregular heart beat, denies high cholesterol, denies poor circulation, denies heart failure, other cardiac issues, denies claudication, denies cold feet, denies peripheral arterial stent. Respiratory: The patient denies tuberculosis, denies pneumonia, denies frequent cough, denies pulmonary embolism, denies shortness of breath, and denies coughing up blood. Gastrointestinal: The patient denies difficulty swallowing, denies acid reflux, denies ulcers, denies vomiting, denies jaundice/hepatitis, denies gallbladder problems, denies black or tarry stools, denies hemorrhoids, denies bleeding from rectum, denies diverticulitis, denies constipation, denies diarrhea, denies loss of stool control, and denies hernias. Kidney/Bladder: The patient notes kidney stones, denies urine infections, and denies bloody urine. Skin: The patient denies a history of skin cancer, denies bleeding/changing moles, and denies a history of skin rash. Neurologic: The patient denies a history of epilepsy/convulsions, denies headaches, denies head/spinal injuries, and denies stroke/TIA. Psychiatric: The patient denies psychiatric medications, denies depression, and denies voices, denies substance abuse. Endocrine: The patient denies thyroid disorders, notes diabetes, and denies hormonal problems. Hematologic: The patient denies a history of bruising, denies bleeding, and denies anemia, denies blood clots. Infections: The patient denies a history of measles and mumps, denies rheumatic fever, and denies sexually transmitted diseases. Musculoskeletal: The patient denies back pain/injury, denies back problems, denies sciatica, denies knee/foot trouble, denies arthritis, or denies gout. When was patient's last Mammogram screening? 2021 Last Colonoscopy: 2020 Daniela Dietrich LPN documented in this encounter [facility] 03-09-2022 History of Presen t illness Narrative Images from the original note were not included. This note was created using [employer]. Subjective Clement Weeks is a 66 year old female. HPI Patient presents with a sore on her bottom for the past month. She had mentioned it to her primary doctor when she saw her earlier in the month who told her it probably would go away its on on its own. Its gotten worse. She is got a little drainage out of it. Denies fever or chills. She is diabetic. She states her blood sugars have been fine. She denies history of abscesses or MRSA previously. Review of Systems Constitutional: Negative. HENT: Negative. Respiratory: Negative. Cardiovascular: Negative. Gastrointestinal: Negative. Genitourinary: Sore on buttocks All other systems reviewed and are negative. PAST MEDICAL HISTORY Diagnosis Date Delirium 10/03/2020 Diabetes (HCC) History of cholecystectomy 10/03/2020 Hypertension Hyperthyroidism Pancytopenia (HCC) 10/03/2020 Snoring Vitamin D deficiency 08/08/2016 Current Outpatient Medications Medication Sig Dispense Refill tiZANidine HCl (ZANAFLEX) 2 mg capsule Take 1 capsule by mouth daily at bedtime. 30 capsule 2 montelukast (SINGULAIR) 10 mg tablet Take 1 tablet by mouth daily at bedtime. 90 tablet 1 blood sugar diagnostic (CONTOUR TEST STRIPS) test strip Test blood sugar(s) 2 times daily. Dx: Type 2 DM - Uncontrolled E11.65 Insulin: No 50 Strip 11 Azelastine HCl (OPTIVAR) 0.05 % ophthalmic solution USE 1 DROP IN BOTH EYES THREE TIMES DAILY NEEDED. 27 mL 4 losartan (COZAAR) 50 mg tablet TAKE 1 TABLET BY MOUTH EVERY DAY 90 tablet 1 fluticasone (FLONASE) 50 mcg/actuation nasal spray SPRAY 1 SPRAY INTO EACH NOSTRIL EVERY DAY 16 Each 5 metFORMIN (GLUCOPHAGE) 500 mg tablet Take 1 tablet by mouth daily with breakfast AND 1 tablet daily with dinner. 180 tablet 3 Gatorade Sports Drink Use as directed for Miralax / Gatorade Bowel Prep Kit 64 oz 0 amLODIPine (NORVASC) 5 mg tablet Take 1 tablet by mouth once daily. doxycycline (VIBRA-TABS) 100 mg tablet Take 1 tablet by mouth twice daily for 7 days. 14 tablet 0 aspirin, enteric coated (ASPIRIN, ENTERIC COATED) 81 mg EC tablet Take 81 mg by mouth once daily. (Patient not taking: Reported on 03/09/2022) No current facility-administered medications for this visit. PAST SURGICAL HISTORY Procedure Laterality Date ABDOMINAL SURGERY HX COLONOSCOPY FLX DX W/COLLJ SPEC WHEN PFRMD 03/09/2021 DILATED FUNDUS EXAM 08/29/2014 Dr.Jeffrey Melendez ESOPHAGOGASTRODUODENOSCOPY TRANSORAL DIAGNOSTIC 09/01/2018 EGD EYE SURGERY HX LAPAROSCOPY SURG CHOLECYSTECTOMY 10/14/2018 Cholecystectomy, lap THYROIDECTOMY SUBTOTAL/PARTIAL FAMILY HISTORY Problem Relation Age of Onset other (lung cancer) Father Stroke Sister Social History Tobacco Use Smoking status: Never Smokeless tobacco: Never Substance Use Topics Alcohol use: No Drug use: No Objective BP 144/84 Pulse (!) 54 Temp 36.4 C (97.5 F) (Tympanic) Resp 16 Wt 82.7 kg (182 lb 6.4 oz) SpO2 99% BMI 31.80 kg/m Physical Exam Vitals reviewed. Constitutional: Appearance: Normal appearance. HENT: Head: Normocephalic and atraumatic. Genitourinary: Comments: Patient has an area of erythema with fluctuance at quarter sized on the left buttock, groin area. No active drainage. Tender to palpation. Neurological: Mental Status: She is alert. UNIVERSAL PROTOCOL / SAFETY CHECKLIST Procedure to be Performed: abscess I and d Sign In: A Moment of CARE was completed. Personnel directly involved with the procedure wore the appropriate PPE (Personal Protective Equipment). Patient/Surrogate Stated/Verified: PATIENT VERIFIED(optional for EMERGENT procedures): Patient name, Date of , Relevant allergies, and The intended procedure Time Out Communication: Intended patient and procedure match the source documents. Consent documented and matches the intended procedure. No correct side/site applicable for marking and visibility. Medications required for procedure verified. No fire risk assessment and interventions applicable. No implant(s) inserted. Sign Out: SIGN OUT (optional for EMERGENT procedures): All specimen containers correctly labeled. All instruments, equipment, possible retained foreign bodies accounted for. Post-procedure follow-up management communicated and Plan of Care Visit completed when applicable. Dania Harrison PA-C Procedure: Abscess I&D Verbal permission given after explaining risk and benefit 3 cc of 0.05 bupivacaine injected locally for anesthetic. A stab incision made in the area of fluctuance. Small purulent drainage expressed. Curved hemostats used to open the incision more and minimal blunt dissection. Irrigated with normal saline. Covered with gauze dressing. Wound culture obtained. Patient tolerated procedure well, no immediate complications. Assessment and Plan ASSESSMENT/PLAN: 1. Abscess - ICD9: 682.9, ICD10: L02.91 -Abscess was incised and drained here. Discussed doing sitz baths at home. We will have her follow-up with general surgery to make sure it is improving. I did start her on doxycycline. Wound culture also pending. Red flags for ER care discussed. Patient agreeable. - WOUND CULTURE AND GRAM STAIN - CONSULT TO GENERAL SURGERY Dania Harrison PA-C documented in this encounter [facility] 02-26-2022 Miscellaneous Notes Consult faxed to Dr. Kevin Royal's office. documented in this encounter [facility] 02-26-2022 Miscellaneous Notes Faxed pulmonary referral to Dr. Royal, pulmonary at [facility], per patient request. Please assist patient in scheduling for restrictive lung disease pattern on pfts Consult is placed. documented in this encounter [facility] 02-26-2022 Miscellaneous Notes Faxed Pulmonary referral to Dr. Royal, at [facility], per patient request. Patient returned call and given provider's message below with verbalized understanding. Patient reports she already has a lung doctor, Dr. Royal, at [facility]. Patient will call back with a fax number to send referral to Dr. Royal. Left vm for patient to return call for results. Renita Brody ----- Message from Ann Farooq MD sent at 02/22/2022 5:13 PM EDT ----- There is some restriction to her lung volumes. I would like her to see pulm to further evaluate this. Regards, Ann Farooq MD documented in this encounter [facility] 02-19-2022 History of Presen t illness Narrative Reason for Visit Patient presents with: F/U 6 months Immunizations: Flu vaccination Clement Weeks is a 66 year old female who presents here today for Above Complaints.. Health Maintenance DTAP,TDAP,TD(1 - Tdap) SHINGRIX VACCINE(1 of 2) DEPRESSION ASSESSMENT URINE ALBUMIN:CREATININE RATIO DILATED RETINAL EXAM DIABETIC FOOT EXAM PNEUMOCOCCAL: 65+(2 - PCV) INFLUENZA(1) HPI HTN: Compliant with medications. Denies any chest pain, palpitations, or edema. No SOB. Doesn't check BP at home generally. Careful with diet to avoid salt, trying to eat more fruits and vegetables, exercises regularly. She has an infected follicle that hurts her once in a while. May be going to move to [place] or [place] where her children. Diabetes Mellitus: usually the sugars are well controlled, will check hba1c this time too. HPL: Reviewed test results with patient , takes medications regularly , does not report side effects. Conscious to avoid red meats, full fat dairy and its by products. Exercising 3 to 5 times a week. No problem-specific Assessment & Plan notes found for this encounter. PAST MEDICAL HISTORY Diagnosis Date Diabetes (HCC) Hypertension Hyperthyroidism Snoring PAST SURGICAL HISTORY Procedure Laterality Date ABDOMINAL SURGERY HX COLONOSCOPY FLX DX W/COLLJ SPEC WHEN PFRMD 03/09/2021 DILATED FUNDUS EXAM 08/29/2014 Dr.Jeffrey Melendez ESOPHAGOGASTRODUODENOSCOPY TRANSORAL DIAGNOSTIC 09/01/2018 EGD EYE SURGERY HX LAPAROSCOPY SURG CHOLECYSTECTOMY 10/14/2018 Cholecystectomy, lap THYROIDECTOMY SUBTOTAL/PARTIAL FAMILY HISTORY Problem Relation Age of Onset other (lung cancer) Father Stroke Sister Social History Tobacco Use Smoking status: Never Smokeless tobacco: Never Substance Use Topics Alcohol use: No Drug use: No Past medical history, appointments, medications, allergies reviewed. Pertinent Lab/Diagnostic Studies are reviewed and discussed today Current Outpatient Medications: losartan (COZAAR) 50 mg tablet amLODIPine (NORVASC) 5 mg tablet montelukast (SINGULAIR) 10 mg tablet blood sugar diagnostic (CONTOUR TEST STRIPS) test strip Azelastine HCl (OPTIVAR) 0.05 % ophthalmic solution fluticasone (FLONASE) 50 mcg/actuation nasal spray metFORMIN (GLUCOPHAGE) 500 mg tablet Gatorade Sports Drink rosuvastatin (CRESTOR) 10 mg tablet tiZANidine HCl 2 mg capsule meloxicam (MOBIC) 15 mg tablet lansoprazole orally disintegrating (PREVACID) 15 mg disintegrating tablet aspirin, enteric coated (ASPIRIN, ENTERIC COATED) 81 mg EC tablet Review of Systems CONSTITUTIONAL: No fevers, chills night sweats, unintended weight loss CARDIOVASCULAR: No chest pain, dyspnea, palpitations, orthopnea, PND, ankle edema. PULM: No dyspnea, unexplained cough. GI: No dysphagia/odynophagia, problematic reflux, constipation, diarrhea, changes in stool habits, hematochezia, melena. : No new urinary complaints, including dysuria, gross hematuria or pyuria. NEURO: No new balance problems, peripheral weakness/paresthesias or numbness of concern. Physical Exam BP 126/76 (BP Site: Right Arm, BP Position: Sitting, BP Cuff Size: Large Adult) Pulse 62 Temp 36.6 C (97.8 F) Resp 12 Ht 162.6 cm (5' 4 ) Wt 82.1 kg (181 lb) SpO2 99% BMI 31.07 kg/m General appearance: Well appearing, alert, in no acute distress, well nourished. Skin: Skin color, texture, turgor normal, no suspicious rashes or lesions Head: Normocephalic, no masses, lesions, tenderness or abnormalities Eyes: Anicteric sclera. Pupils are equally round and reactive to light. Extraocular movements are intact. Lungs: Lungs clear to auscultation. No wheezing, rhonchi, rales Heart: RRR without murmur, gallop, or rubs. Feet: Shoes and socks removed, No deformities, ulcers, calluses, normal distal pulses, and sensitive to 10 gm monofilament ASSESSMENT/PLAN: 1. Controlled type 2 diabetes mellitus without complication, unspecified whether extermination supervisor insulin use (HCC) - ICD9: 250.00, ICD10: E11.9 (primary diagnosis) - TIZANIDINE 2 MG CAPSULE - HEMOGLOBIN A1C (POC) - ALBUMIN/CREAT RATIO RND UR 2. Need for influenza vaccination - ICD9: V04.81, ICD10: Z23 - INFLUENZA SEASONAL QUADRIVALENT HIGH DOSE AGE 65+ 3. Hypertension, essential, benign - ICD9: 401.1, ICD10: I10 - good control - Recommended regular aerobic exercise. - Recommend home blood pressure monitoring, to bring results in on next visit - Goal of BP <130/80 4. Sarcoidosis - ICD9: 135, ICD10: D86.9 Stable 5. BMI 31.0-31.9,adult - ICD9: V85.31, ICD10: Z68.31 6. Encounter for immunization - ICD9: V03.89, ICD10: Z23 - PNEUMOCOCCAL VACCINE (PREVNAR 20) 7. Restrictive lung disease - ICD9: 518.89, ICD10: J98.4 She is not able to take a deep breath, I would like to see her lung volumes - LUNG VOLUMES - SPIROMETRY - BASELINE AND POST DILATOR Ann Farooq MD documented in this encounter [facility] 02-19-2022 Nurse Note patient has an eye appointment in April 2022 documented in this encounter [facility] 12-12-2021 Miscellaneous Notes Please check with your pharmacy. Records show valid rx there. Tracy Schultz LPN documented in this encounter [facility] 12-10-2021 Miscellaneous Notes Patient electronically sent a request for the following prescription(s) Pending Prescriptions Disp Refills MONTELUKAST 10 MG TABLET 90 tablet 1 ALBERT: No Patient aware RX will be sent to pharmacy. No need to notify patient.\ Last Office Visit: 11/20/2021 with PCP Next Office Visit: 02/19/2022 with PCP Please review. Nanci Randall documented in this encounter [facility] 11-20-2021 Miscellaneous Notes This was already completed per other encounter. documented in this encounter [facility] 11-20-2021 History of Presen t illness Narrative Reason for Visit Patient presents with: Same Day Appointment: pain area in anal area Clement Weeks is a 66 year old female who presents here today for Above Complaints. Health Maintenance DTAP,TDAP,TD(1 - Tdap) SHINGRIX VACCINE(1 of 2) COVID-19 VACCINE(4 - Booster for Moderna series) URINE ALBUMIN:CREATININE RATIO DILATED RETINAL EXAM DIABETIC FOOT EXAM PNEUMOCOCCAL: 65+(2 - PCV) HPI Patient has pain in anal region: around that area it hurts, when she sits, not when she stands, it does not hurt when she passes passes urine or has a bowel movement. She does not have any bleeding in the stools, no excretion. No melena, no prolapse of hemorrhoids. She had a colonoscopy last year which showed some internal hemorrhoids and diverticulosis Had her 3 teeth removed since last visit and is doing well. Had her cataracts done and her vision is now normal Diabetes Mellitus: does her exercise, takes medication regularly No problem-specific Assessment & Plan notes found for this encounter. PAST MEDICAL HISTORY Diagnosis Date Diabetes (HCC) Hypertension Hyperthyroidism Snoring PAST SURGICAL HISTORY Procedure Laterality Date ABDOMINAL SURGERY HX COLONOSCOPY FLX DX W/COLLJ SPEC WHEN PFRMD 03/09/2021 DILATED FUNDUS EXAM 08/29/2014 Dr.Jeffrey Melendez ESOPHAGOGASTRODUODENOSCOPY TRANSORAL DIAGNOSTIC 09/01/2018 EGD EYE SURGERY HX LAPAROSCOPY SURG CHOLECYSTECTOMY 10/14/2018 Cholecystectomy, lap THYROIDECTOMY SUBTOTAL/PARTIAL FAMILY HISTORY Problem Relation Age of Onset other (lung cancer) Father Stroke Sister Social History Tobacco Use Smoking status: Never Smoker Smokeless tobacco: Never Used Substance Use Topics Alcohol use: No Drug use: No Past medical history, appointments, medications, allergies reviewed. Pertinent Lab/Diagnostic Studies are reviewed and discussed today Current Outpatient Medications: losartan (COZAAR) 50 mg tablet Azelastine HCl (OPTIVAR) 0.05 % ophthalmic solution fluticasone (FLONASE) 50 mcg/actuation nasal spray metFORMIN (GLUCOPHAGE) 500 mg tablet montelukast (SINGULAIR) 10 mg tablet Gatorade Sports Drink amLODIPine (NORVASC) 5 mg tablet rosuvastatin (CRESTOR) 10 mg tablet tiZANidine HCl 2 mg capsule meloxicam (MOBIC) 15 mg tablet lansoprazole orally disintegrating (PREVACID) 15 mg disintegrating tablet aspirin, enteric coated (ASPIRIN, ENTERIC COATED) 81 mg EC tablet Review of Systems CONSTITUTIONAL: No fevers, chills night sweats, unintended weight loss CARDIOVASCULAR: No chest pain, dyspnea, palpitations, orthopnea, PND, ankle edema. PULM: No dyspnea, unexplained cough. GI: No dysphagia/odynophagia, problematic reflux, constipation, diarrhea, changes in stool habits, hematochezia, melena. : No new urinary complaints, including dysuria, gross hematuria or pyuria. NEURO: No new balance problems, peripheral weakness/paresthesias or numbness of concern. Physical Exam BP 128/68 (BP Site: Left Arm, BP Position: Sitting, BP Cuff Size: Large Adult) Pulse (!) 54 Temp 36.9 C (98.4 F) Resp 12 Ht 162.6 cm (5' 4 ) Wt 82.6 kg (182 lb) SpO2 99% BMI 31.24 kg/m General appearance: Well appearing, alert, in no acute distress, well nourished. Skin: Skin color, texture, turgor normal, no suspicious rashes or lesions Head: Normocephalic, no masses, lesions, tenderness or abnormalities Eyes: Anicteric sclera. Pupils are equally round and reactive to light. Extraocular movements are intact. Lungs: Lungs clear to auscultation. No wheezing, rhonchi, rales Heart: RRR without murmur, gallop, or rubs. Exam: on exam of the perianal area the area of pain is the cocyxx bone ASSESSMENT/PLAN: 1. Coccydynia - ICD9: 724.79, ICD10: M53.3 (primary diagnosis) Discussed merline santacruz 2. Controlled type 2 diabetes mellitus without complication, unspecified whether senior living insulin use (HCC) - ICD9: 250.00, ICD10: E11.9 Controlled. - Continue current medications - HGB A1C - COMP METABOLIC PANEL - CBC - LIPID PANEL BASIC 3. Hypothyroidism, unspecified type - ICD9: 244.9, ICD10: E03.9 - TSH BLD 4. Hypertension, essential, benign - ICD9: 401.1, ICD10: I10 - COMP METABOLIC PANEL Ann Farooq MD documented in this encounter [facility] 11-19-2021 Miscellaneous Notes [email or web address] message sent. I have ordered the urine, but do not see any other lab orders placed. Is she supposed to be having labs prior to appointment with Dr. Farooq tomorrow? Thank you Lyndsay Alfred APRN.JENNIFER Patient contacted us via my chart. Would like to have a Urine Albumin:Creatinine Ratio Added to her labwork. Idalia Sabrina Pss documented in this encounter [facility] 11-13-2021 Miscellaneous Notes Patient has been identified by name and date of : Yes Patient phones for refill(s): Pending Prescriptions Disp Refills AZELASTINE 0.05 % EYE DROPS 27 mL 4 Sig: USE 1 DROP IN BOTH EYES THREE TIMES DAILY NEEDED. ALBERT: Yes Date of last office visit in primary care: 08/14/21 Last 2 Encounter Wt Readings: Date: Wt: 08/14/2021 82.1 kg (181 lb) 02/20/2021 84.8 kg (187 lb) Previous labs/tests for medication: Not applicable Please advise. Thank you. Lili Erickson LPN documented in this encounter [facility] 11-02-2021 Miscellaneous Notes Patient phones requesting refills as follows: Pending Prescriptions Disp Refills LOSARTAN 50 MG TABLET 90 tablet 1 Sig: TAKE 1 TABLET BY MOUTH EVERY DAY ALBERT: Yes SOULEYMANE-08/14/21 Labs-08/04/21 NOV-02/19/22 Please review and advise. Daniela Wolf LPN documented in this encounter [facility] 10-16-2021 Miscellaneous Notes October 16, 2021 PID: [id number] Clement Weeks [address] [place] [address] Dear Ms. Weeks, We are pleased to inform you that the results of your recent breast imaging exam on 10/16/2021 are normal. Early detection of cancer is very important. We also understand recommendations regarding breast cancer screening are controversial. Please discuss with your primary care provider which strategy is best for you and whether a mammogram is right for you. Your imaging studies and report will be kept on file at [facility] as part of your permanent medical record and are available for your continuing care. Thank you for allowing us to help in meeting your health care needs. Sincerely, Dr. Chino Interpreting Radiologist [facility] (Normal over 40) documented in this encounter [facility] 10-16-2021 History of Presen t illness Narrative Radiology Service Progress Note PATIENT NAME: Clement Weeks DATE OF SERVICE: October 16, 2021 TIME: 10:48 AM PATIENT IDENTITY VERIFICATION COMPLETED USING TWO (2) IDENTIFIERS: Name and Date of confirmed by patient verbally. FALL SCREENING: Has the patient had 2 falls in the last year or 1 fall with injury or currently using an Ambulatory Assistive Device (Walker, Cane, Wheelchair, Crutches, etc.)? No PATIENT GENDER DATA: Female. status: : No status: NO. PATIENT RELEVANT IMPLANT DATA REVIEWED: Not Applicable RADIOLOGY DEPARTMENT: Mammography PERIPHERAL IV DATA: Not applicable SIGNED BY: Rylan Gallego October 16, 2021 10:48 AM documented in this encounter [facility] documented as of this encounter (statuses as of 02/19/2022) [facility] History of Past illness Narrative* Problem Noted Date Resolved Date Delirium 10/03/2020 02/19/2022 History of cholecystectomy 10/03/202002/19 Pancytopenia 10/03/2020 02/19/2022 Vitamin D deficiency 08/08/2016 02/19/2022 documented as of this encounter (statuses as of 02/22/2022) [facility] History of Past illness Narrative* Problem Noted Date Resolved Date Delirium 10/03/2020 02/19/2022 History of cholecystectomy 10/03/202002/19 Pancytopenia 10/03/2020 02/19/2022 Vitamin D deficiency 08/08/2016 02/19/2022 documented as of this encounter (statuses as of 02/26/2022) [facility] History of Past illness Narrative* Problem Noted Date Resolved Date Delirium 10/03/2020 02/19/2022 History of cholecystectomy 10/03/202002/19 Pancytopenia 10/03/2020 02/19/2022 Vitamin D deficiency 08/08/2016 02/19/2022 documented as of this encounter (statuses as of 02/26/2022) [facility] History of Past illness Narrative* Problem Noted Date Resolved Date Delirium 10/03/2020 02/19/2022 History of cholecystectomy 10/03/202002/19 Pancytopenia 10/03/2020 02/19/2022 Vitamin D deficiency 08/08/2016 02/19/2022 documented as of this encounter (statuses as of 02/26/2022) [facility] History of Past illness Narrative* Problem Noted Date Resolved Date Delirium 10/03/2020 02/19/2022 History of cholecystectomy 10/03/202002/19 Pancytopenia 10/03/2020 02/19/2022 Vitamin D deficiency 08/08/2016 02/19/2022 documented as of this encounter (statuses as of 03/09/2022) [facility] History of Past illness Narrative* Problem Noted Date Resolved Date Delirium 10/03/2020 02/19/2022 History of cholecystectomy 10/03/202002/19 Pancytopenia 10/03/2020 02/19/2022 Vitamin D deficiency 08/08/2016 02/19/2022 documented as of this encounter (statuses as of 03/15/2022) [facility] History of Past illness Narrative* Problem Noted Date Resolved Date Delirium 10/03/2020 02/19/2022 History of cholecystectomy 10/03/202002/19 Pancytopenia 10/03/2020 02/19/2022 Vitamin D deficiency 08/08/2016 02/19/2022 documented as of this encounter (statuses as of 03/16/2022) [facility] History of Past illness Narrative* Problem Noted Date Resolved Date Delirium 10/03/2020 02/19/2022 History of cholecystectomy 10/03/202002/19 Pancytopenia 10/03/2020 02/19/2022 Vitamin D deficiency 08/08/2016 02/19/2022 documented as of this encounter (statuses as of 03/20/2022) [address]25-2021 History of Past illness Narrative* Problem Noted Date Resolved Date Delirium 10/03/2020 02/19/2022 History of cholecystectomy 10/03/202002/19 Pancytopenia 10/03/2020 02/19/2022 Vitamin D deficiency 08/08/2016 02/19/2022 documented as of this encounter (statuses as of 03/28/2022) [address]25-2021 History of Past illness Narrative* Problem Noted Date Resolved Date Delirium 10/03/2020 02/19/2022 History of cholecystectomy 10/03/202002/19 Pancytopenia 10/03/2020 02/19/2022 Vitamin D deficiency 08/08/2016 02/19/2022 documented as of this encounter (statuses as of 04/15/2022) [address]25-2021 History of Past illness Narrative* Problem Noted Date Resolved Date Delirium 10/03/2020 02/19/2022 History of cholecystectomy 10/03/202002/19 Pancytopenia 10/03/2020 02/19/2022 Vitamin D deficiency 08/08/2016 02/19/2022 documented as of this encounter (statuses as of 04/17/2022) [facility] History of Past illness Narrative* Problem Noted Date Resolved Date Delirium 10/03/2020 02/19/2022 History of cholecystectomy 10/03/202002/19 Pancytopenia 10/03/2020 02/19/2022 Vitamin D deficiency 08/08/2016 02/19/2022 documented as of this encounter (statuses as of 05/17/2022) [address]25-2021 History of Past illness Narrative* Problem Noted Date Resolved Date Delirium 10/03/2020 02/19/2022 History of cholecystectomy 10/03/202002/19 Pancytopenia 10/03/2020 02/19/2022 Vitamin D deficiency 08/08/2016 02/19/2022 documented as of this encounter (statuses as of 06/11/2022) [facility] History of Past illness Narrative* Problem Noted Date Resolved Date Delirium 10/03/2020 02/19/2022 History of cholecystectomy 10/03/202002/19 Pancytopenia 10/03/2020 02/19/2022 Vitamin D deficiency 08/08/2016 02/19/2022 documented as of this encounter (statuses as of 06/12/2022) [facility] History of Past illness Narrative* Problem Noted Date Resolved Date Delirium 10/03/2020 02/19/2022 History of cholecystectomy 10/03/202002/19 Pancytopenia 10/03/2020 02/19/2022 Vitamin D deficiency 08/08/2016 02/19/2022 documented as of this encounter (statuses as of 06/13/2022) [facility] History of Past illness Narrative* Problem Noted Date Resolved Date Delirium 10/03/2020 02/19/2022 History of cholecystectomy 10/03/202002/19 Pancytopenia 10/03/2020 02/19/2022 Vitamin D deficiency 08/08/2016 02/19/2022 documented as of this encounter (statuses as of 09/17/2022) [facility] History of Past illness Narrative* Problem Noted Date Resolved Date Delirium 10/03/2020 02/19/2022 History of cholecystectomy 10/03/202002/19 Pancytopenia 10/03/2020 02/19/2022 Vitamin D deficiency 08/08/2016 02/19/2022 documented as of this encounter (statuses as of 09/19/2022) [facility] History of Past illness Narrative* Problem Noted Date Resolved Date Delirium 10/03/2020 02/19/2022 History of cholecystectomy 10/03/202002/19 Pancytopenia 10/03/2020 02/19/2022 Vitamin D deficiency 08/08/2016 02/19/2022 documented as of this encounter (statuses as of 10/25/2022) [facility] History of Past illness Narrative* Problem Noted Date Resolved Date Delirium 10/03/2020 02/19/2022 History of cholecystectomy 10/03/202002/19 Pancytopenia 10/03/2020 02/19/2022 Vitamin D deficiency 08/08/2016 02/19/2022 documented as of this encounter (statuses as of 10/27/2022) [facility] History of Past illness Narrative* Problem Noted Date Resolved Date Delirium 10/03/2020 02/19/2022 History of cholecystectomy 10/03/202002/19 Pancytopenia 10/03/2020 02/19/2022 Vitamin D deficiency 08/08/2016 02/19/2022 documented as of this encounter (statuses as of 10/30/2022) [facility] History of Past illness Narrative* Problem Noted Date Resolved Date Delirium 10/03/2020 02/19/2022 History of cholecystectomy 10/03/202002/19 Pancytopenia 10/03/2020 02/19/2022 Vitamin D deficiency 08/08/2016 02/19/2022 documented as of this encounter (statuses as of 11/01/2022) [facility]21 History of Past illness Narrative* Problem Noted Date Diagnosed Date Resolved Date Delirium 10/03/2020 02/19/2022 History of cholecystectomy 10/03/2020 1 Pancytopenia 10/03/2020 02/19/2022 Vitamin D deficiency 08/08/2016 022 documented as of this encounter (statuses as of 02/19/2023) [facility] History of Past illness Narrative* Problem Noted Date Diagnosed Date Resolved Date Delirium 10/03/2020 02/19/2022 History of cholecystectomy 10/03/2020 1 Pancytopenia 10/03/2020 02/19/2022 Vitamin D deficiency 08/08/2016 022 documented as of this encounter (statuses as of 02/25/2023) [facility] History of Past illness Narrative* Problem Noted Date Diagnosed Date Resolved Date Delirium 10/03/2020 02/19/2022 History of cholecystectomy 10/03/2020 1 Pancytopenia 10/03/2020 02/19/2022 Vitamin D deficiency 08/08/2016 022 documented as of this encounter (statuses as of 02/25/2023) [facility] History of Past illness Narrative* Problem Noted Date Diagnosed Date Resolved Date Delirium 10/03/2020 02/19/2022 History of cholecystectomy 10/03/2020 1 Pancytopenia 10/03/2020 02/19/2022 Vitamin D deficiency 08/08/2016 022 documented as of this encounter (statuses as of 02/25/2023) [facility] History of Past illness Narrative* Problem Noted Date Diagnosed Date Resolved Date Delirium 10/03/2020 02/19/2022 History of cholecystectomy 10/03/2020 1 Pancytopenia 10/03/2020 02/19/2022 Vitamin D deficiency 08/08/2016 022 documented as of this encounter (statuses as of 03/17/2023) [facility] History of Past illness Narrative* Problem Noted Date Diagnosed Date Resolved Date Delirium 10/03/2020 02/19/2022 History of cholecystectomy 10/03/2020 1 Pancytopenia 10/03/2020 02/19/2022 Vitamin D deficiency 08/08/2016 022 documented as of this encounter (statuses as of 04/11/2023) [facility] History of Past illness Narrative* Problem Noted Date Diagnosed Date Resolved Date Delirium 10/03/2020 02/19/2022 History of cholecystectomy 10/03/2020 1 Pancytopenia 10/03/2020 02/19/2022 Vitamin D deficiency 08/08/2016 022 documented as of this encounter (statuses as of 06/15/2023) [facility] History of Past illness Narrative* Problem Noted Date Diagnosed Date Resolved Date Delirium 10/03/2020 02/19/2022 History of cholecystectomy 10/03/2020 1 Pancytopenia 10/03/2020 02/19/2022 Vitamin D deficiency 08/08/2016 022 documented as of this encounter (statuses as of 06/16/2023) [facility] History of Past illness Narrative* Problem Noted Date Diagnosed Date Resolved Date Delirium 10/03/2020 02/19/2022 History of cholecystectomy 10/03/2020 1 Pancytopenia 10/03/2020 02/19/2022 Vitamin D deficiency 08/08/2016 022 documented as of this encounter (statuses as of 06/16/2023) [facility] History of Past illness Narrative* Problem Noted Date Diagnosed Date Resolved Date Delirium 10/03/2020 02/19/2022 History of cholecystectomy 10/03/2020 1 Pancytopenia 10/03/2020 02/19/2022 Vitamin D deficiency 08/08/2016 022 documented as of this encounter (statuses as of 06/24/2023) [facility] History of Past illness Narrative* Problem Noted Date Diagnosed Date Resolved Date Delirium 10/03/2020 02/19/2022 History of cholecystectomy 10/03/2020 1 Pancytopenia 10/03/2020 02/19/2022 Vitamin D deficiency 08/08/2016 022 documented as of this encounter (statuses as of 06/30/2023) [facility] History of Past illness Narrative* Problem Noted Date Diagnosed Date Resolved Date Delirium 10/03/2020 02/19/2022 History of cholecystectomy 10/03/2020 1 Pancytopenia 10/03/2020 02/19/2022 Vitamin D deficiency 08/08/2016 022 documented as of this encounter (statuses as of 07/19/2023) [facility] History of Past illness Narrative* Problem Noted Date Diagnosed Date Resolved Date Delirium 10/03/2020 02/19/2022 History of cholecystectomy 10/03/2020 1 Pancytopenia 10/03/2020 02/19/2022 Vitamin D deficiency 08/08/2016 022 documented as of this encounter (statuses as of 07/19/2023) [facility] note* Diagnosis Breast cancer screening by mammogram [facility] Diagnosis Sarcoidosis documented in this encounter [facility] note* Diagnosis Controlled type 2 diabetes mellitus without complication, unspecified whether senior living insulin use (HCC)- Primary [facility]* Diagnosis Coccydynia- Primary Other disorder of coccyx Controlled type 2 diabetes mellitus without complication, unspecified whether extermination supervisor insulin use (HCC) Hypothyroidism, unspecified type Hypertension, essential, benign Essential hypertension, benign documented in this encounter [facility] note* Diagnosis Environmental allergies Other allergy, other than to medicinal agents [facility] Diagnosis Hospital discharge follow-up Other follow-up examination [facility]* Diagnosis Controlled type 2 diabetes mellitus without complication, unspecified whether senior living insulin use (HCC)- Primary Need for influenza vaccination Need for prophylactic vaccination and inoculation against influenza Hypertension, essential, benign Essential hypertension, benign Sarcoidosis BMI 31.0-31.9,adult Body Mass Index 31.0-31.9, adult Encounter for immunization Need for other specified prophylactic vaccination against single bacterial disease Restrictive lung disease Other diseases of lung, not elsewhere classified [facility] Diagnosis Restrictive lung disease Other diseases of lung, not elsewhere classified documented in this encounter [facility] note* Diagnosis Abnormal PFT- Primary Nonspecific abnormal results of pulmonary system function study Sarcoidosis documented in this encounter [facility] note* Diagnosis Abscess- Primary Cellulitis and abscess of unspecified site [facility]* Diagnosis Controlled type 2 diabetes mellitus without complication, unspecified whether extermination supervisor insulin use (HCC) [facility]* Diagnosis Abscess Cellulitis and abscess of unspecified site [facility] Diagnosis Need for vaccination- Primary Need for prophylactic vaccination and inoculation against unspecified single disease [facility]* Diagnosis Hypercalcemia- Primary Environmental allergies Other allergy, other than to medicinal agents Hospital discharge follow-up Other follow-up examination Controlled type 2 diabetes mellitus without complication, unspecified whether senior living insulin use (HCC) Hypertension, essential, benign Essential hypertension, benign documented in this encounter [facility] note* Diagnosis Controlled type 2 diabetes mellitus without complication, unspecified whether senior living insulin use (HCC)- Primary Hypertension, essential, benign Essential hypertension, benign Sarcoidosis BMI 31.0-31.9,adult Body Mass Index 31.0-31.9, adult Restrictive lung disease Other diseases of lung, not elsewhere classified documented in this encounter [facility] note* Diagnosis Controlled type 2 diabetes mellitus without complication, unspecified whether senior living insulin use (HCC) documented in this encounter [facility] note* Diagnosis Controlled type 2 diabetes mellitus without complication, unspecified whether extermination supervisor insulin use (HCC) documented in this encounter [facility] note* Diagnosis Breast cancer screening by mammogram- Primary documented in this encounter [facility] note* Diagnosis Controlled type 2 diabetes mellitus without complication, unspecified whether senior living insulin use (HCC)- Primary Hypertension, essential, benign Essential hypertension, benign documented in this encounter [facility] note* Diagnosis Seasonal allergies Allergic rhinitis, cause unspecified documented in this encounter [facility] note* Diagnosis Controlled type 2 diabetes mellitus without complication, unspecified whether extermination supervisor insulin use (HCC) documented in this encounter [facility] note* Diagnosis Controlled type 2 diabetes mellitus without complication, unspecified whether extermination supervisor insulin use (HCC) documented in this encounter [facility] note* Diagnosis Controlled type 2 diabetes mellitus without complication, unspecified whether senior living insulin use (HCC) documented in this encounter [facility] note* Diagnosis Breast cancer screening by mammogram documented in this encounter [facility] note* Diagnosis Diabetes mellitus type 2, controlled, without complications (HCC) Type II or unspecified type diabetes mellitus without mention of complication, not stated as uncontrolled documented in this encounter [facility] note* Diagnosis Controlled type 2 diabetes mellitus without complication, unspecified whether senior living insulin use (HCC) documented in this encounter [facility] note* Diagnosis Controlled type 2 diabetes mellitus without complication, unspecified whether senior living insulin use (HCC) documented in this encounter [facility] note* Diagnosis Controlled type 2 diabetes mellitus without complication, unspecified whether senior living insulin use (HCC)- Primary Hypertension, essential, benign Essential hypertension, benign Rectal pain Anal or rectal pain Right shoulder pain, unspecified chronicity Right-sided chest pain Vitamin D deficiency Unspecified vitamin D deficiency [facility] Diagnosis Sarcoidosis [facility] Diagnosis Disorder of bone Disorder of bone and cartilage, unspecified documented in this encounter [facility] for referral (narrative)* Diagnostic Procedure Only (Routine) - Closed Specialty Diagnoses / Procedures Referred By Bethany palacios Referred To Contact [facility] Diagnoses Breast cancer screening by mammogram Procedures YARON SCREENING SCREENING MAMMOGRAPHY BI 2-VIEW BREAST INC CAD Ann Farooq MD [address] [place] [address] [facility] [address] [place] [phone] Referral ID Status Reason Start Date Expiration Date V isits Requested Visits Authorized [id number] Closed Auto-Generate d Referral 08/14/2021 09/13/2022 1 1 [facility] for referral (narrative)* Outpatient Procedure (Routine) - Pending Review Specialty Diagnoses / Procedures Referred By Bethany palacios Referred To [facility] Diagnoses Restrictive lung disease Procedures SPIROMETRY - BASELINE AND POST DILATOR BRNCDILAT RSPSE SPMTRY PRE&POST-BRNCDILAT ADMN Ann Farooq MD [address] [place] [address] [facility] [place] [address] [place] [id number] Referral ID Status Reason Start Date Expiration Date Visits Requested Visits Authorized [id number] Pending Review Auto-Generat ed Referral 2 03/21/2023 1 1 * Outpatient Procedure (Routine) - Pending Review Specialty Diagnoses / Procedures Referred By Bethany palacios Referred To [facility] Diagnoses Restrictive lung disease Procedures LUNG VOLUMES Ann Farooq MD [facility] [place] [address] [facility] [place] [address] [place] [id number] Referral ID Status Reason Start Date Expiration Date Visits Requested Visits Authorized [id number] Pending Review Auto-Generat ed Referral 03/21/2023 1 1 [facility] for referral (narrative)* Diagnostic Procedure Only (Routine) - Authorized Specialty Diagnoses / Procedures Referred By Contac t Referred To Contact [facility] Diagnoses Breast cancer screening by mammogram Procedures YARON SCREENING SCREENING MAMMOGRAPHY BI 2-VIEW BREAST INC CAD Lyndsay Alfred APRN.DRUM PULLER [address] [place] [address] [facility] [address] [place] [address] Referral ID Status Reason Start Date Expiration Date Visits Requested Visits Authorized [id number] Authorized Auto-Generat ed Referral 09/23/2022 10/21/2023 1 1 [facility] for referral (narrative)* Diagnostic Procedure Only (Routine) - Closed Specialty Diagnoses / Procedures Referred By Contac t Referred To Contact [facility] Diagnoses Breast cancer screening by mammogram Procedures YARON SCREENING SCREENING MAMMOGRAPHY BI 2-VIEW BREAST INC CAD Lyndsay Alfred APRN.DRUM PULLER [address] [place] [address] [facility] [address] [place] [address] Referral ID Status Reason Start Date Expiration Date V isits Requested Visits Authorized [id number] Closed Auto-Generate d Referral 09/23/2022 10/21/2023 1 1 [facility] for visit Narrative* Diagnostic Procedure Only (Routine) - Closed Specialty Diagnoses / Procedures Referred By Contac t Referred To Contact [facility] Diagnoses Breast cancer screening by mammogram Procedures YARON SCREENING SCREENING MAMMOGRAPHY BI 2-VIEW BREAST INC CAD Lyndsay Alfred APRN.DRUM PULLER [address] [place] [address] [facility] [address] [place] [address] Referral ID Status Reason Start Date Expiration Date V isits Requested Visits Authorized [id number] Closed Auto-Generate d Referral 09/23/2022 10/21/2023 1 1 [facility] Summary Purpose Family History No Family History Records FoundNo Family History Records Found Advance Directives No Advanced Directives Records FoundDocuments on File Type Date Recorded Patient Stitcher Special Machine Expl anation Advance Directive(s) 03/09/2021 7:26 AM Advance Directive(s) 02/16/2021 2:49 PM Advance Directive(s) 10/14/2018 7:14 AM Advance Directive(s) 09/01/2018 8:06 AM Documents on File Type Date Recorded Patient Stitcher Special Machine Expl anation Advance Directive(s) 03/09/2021 7:26 AM Advance Directive(s) 02/16/2021 2:49 PM Advance Directive(s) 10/14/2018 7:14 AM Advance Directive(s) 09/01/2018 8:06 AM Reason for Referral Specialty Diagnoses / Procedures Referred By Contac t Referred To Contact Pulmonary and Critical Care Medicine Diagnoses Abnormal PFT Sarcoidosis Procedures CONSULT TO PULM/CRITICAL CARE OFFICE/OUTPATIENT [facility]3] 60-74 MINUTES Ann Farooq MD [address] [place] [address] Referral ID Status Reason Start Date Expiration Date Visits Requested Visits Authorized [id number] Authorized PCP Requested Referral 2 02/25/2023 1 1 Specialty Diagnoses / Procedures Referred By Contac t Referred To Contact General Surgery Diagnoses Abscess Procedures CONSULT TO GENERAL SURGERY OFFICE/OUTPATIENT [facility]3] 60-74 MINUTES Dania Harrison PA-C [address] [place] [address] Referral ID Status Reason Start Date Expiration Date Visits Requested Visits Authorized [id number] Authorized PCP Requested Referral 2 03/09/2023 1 1 Specialty Diagnoses / Procedures Referred By Contac t Referred To Contact Ann Farooq MD [address] [place] [address] Referral ID Status Reason Start Date Expiration Date V isits Requested Visits Authorized [id number] Pending Review 1 1 Specialty Diagnoses / Procedures Referred By Contac t Referred To Contact Diagnoses Controlled type 2 diabetes mellitus without complication, unspecified whether senior living insulin use (HCC) Ann Farooq MD [address] [place] [address] Referral ID Status Reason Start Date Expiration Date V isits Requested Visits Authorized [id number] Authorized 09/17/2022 09/18/2023 1 1 Specialty Diagnoses / Procedures Referred By Contac t Referred To Contact Diagnoses Controlled type 2 diabetes mellitus without complication, unspecified whether senior living insulin use (HCC) Whit Reynoso MD [address] [place] [address] Referral ID Status Reason Start Date Expiration Date V isits Requested Visits Authorized [id number] Pending Review 1 1 Specialty Diagnoses / Procedures Referred By Contac t Referred To Contact Colon and Rectal Surgery Diagnoses Rectal pain Procedures CONSULT TO COLO-RECTAL SURGERY OFFICE/OUTPATIENT [facility]3] 60 MINUTES Maddy Uribe PA-C [address] [place] [address] Referral ID Status Reason Start Date Expiration Date Visits Requested Visits Authorized [id number] Authorized PCP Requested Referral 06/24/2023 06/23/2024 1 1 Additional Source Comments INFORMATION SOURCE (unrecogn ized section and content) DATE CREATED AUTHOR AUTHOR'S ORGANIZ ATION 07/22/2023 [facility] Source Comments (unrecognize d section and content) In the event this informatio n is protected by the Federal Confidentiality of Alcohol and Drug Abuse Patient Records regulations: The Federal rules restrict any use of the information to criminally investigate or prosecute any alcohol or drug abuse patient.[facility] event this information is protected by the Federal Confidentiality of Alcohol and Drug Abuse Patient Records regulations: The Federal rules restrict any use of the information to criminally investigate or prosecute any alcohol or drug abuse patient.[facility] the event this information is protected by the Federal Confidentiality of Alcohol and Drug Abuse Patient Records regulations: The Federal rules restrict any use of the information to criminally investigate or prosecute any alcohol or drug abuse patient.[facility] the event this information is protected by the Federal Confidentiality of Alcohol and Drug Abuse Patient Records regulations: The Federal rules restrict any use of the information to criminally investigate or prosecute any alcohol or drug abuse patient.[facility] the event this information is protected by the Federal Confidentiality of Alcohol and Drug Abuse Patient Records regulations: The Federal rules restrict any use of the information to criminally investigate or prosecute any alcohol or drug abuse patient.[facility] the event this information is protected by the Federal Confidentiality of Alcohol and Drug Abuse Patient Records regulations: The Federal rules restrict any use of the information to criminally investigate or prosecute any alcohol or drug abuse patient.[facility] the event this information is protected by the Federal Confidentiality of Alcohol and Drug Abuse Patient Records regulations: The Federal rules restrict any use of the information to criminally investigate or prosecute any alcohol or drug abuse patient.[facility] the event this information is protected by the Federal Confidentiality of Alcohol and Drug Abuse Patient Records regulations: The Federal rules restrict any use of the information to criminally investigate or prosecute any alcohol or drug abuse patient.[facility] the event this information is protected by the Federal Confidentiality of Alcohol and Drug Abuse Patient Records regulations: The Federal rules restrict any use of the information to criminally investigate or prosecute any alcohol or drug abuse patient.[facility] the event this information is protected by the Federal Confidentiality of Alcohol and Drug Abuse Patient Records regulations: The Federal rules restrict any use of the information to criminally investigate or prosecute any alcohol or drug abuse patient.[facility] the event this information is protected by the Federal Confidentiality of Alcohol and Drug Abuse Patient Records regulations: The Federal rules restrict any use of the information to criminally investigate or prosecute any alcohol or drug abuse patient.[facility] the event this information is protected by the Federal Confidentiality of Alcohol and Drug Abuse Patient Records regulations: The Federal rules restrict any use of the information to criminally investigate or prosecute any alcohol or drug abuse patient.[facility] the event this information is protected by the Federal Confidentiality of Alcohol and Drug Abuse Patient Records regulations: The Federal rules restrict any use of the information to criminally investigate or prosecute any alcohol or drug abuse patient.[facility] the event this information is protected by the Federal Confidentiality of Alcohol and Drug Abuse Patient Records regulations: The Federal rules restrict any use of the information to criminally investigate or prosecute any alcohol or drug abuse patient.[facility] the event this information is protected by the Federal Confidentiality of Alcohol and Drug Abuse Patient Records regulations: The Federal rules restrict any use of the information to criminally investigate or prosecute any alcohol or drug abuse patient.[facility] the event this information is protected by the Federal Confidentiality of Alcohol and Drug Abuse Patient Records regulations: The Federal rules restrict any use of the information to criminally investigate or prosecute any alcohol or drug abuse patient.[facility] the event this information is protected by the Federal Confidentiality of Alcohol and Drug Abuse Patient Records regulations: The Federal rules restrict any use of the information to criminally investigate or prosecute any alcohol or drug abuse patient.[facility] the event this information is protected by the Federal Confidentiality of Alcohol and Drug Abuse Patient Records regulations: The Federal rules restrict any use of the information to criminally investigate or prosecute any alcohol or drug abuse patient.[facility] the event this information is protected by the Federal Confidentiality of Alcohol and Drug Abuse Patient Records regulations: The Federal rules restrict any use of the information to criminally investigate or prosecute any alcohol or drug abuse patient.[facility] the event this information is protected by the Federal Confidentiality of Alcohol and Drug Abuse Patient Records regulations: The Federal rules restrict any use of the information to criminally investigate or prosecute any alcohol or drug abuse patient.[facility] the event this information is protected by the Federal Confidentiality of Alcohol and Drug Abuse Patient Records regulations: The Federal rules restrict any use of the information to criminally investigate or prosecute any alcohol or drug abuse patient.[facility] the event this information is protected by the Federal Confidentiality of Alcohol and Drug Abuse Patient Records regulations: The Federal rules restrict any use of the information to criminally investigate or prosecute any alcohol or drug abuse patient.[facility] the event this information is protected by the Federal Confidentiality of Alcohol and Drug Abuse Patient Records regulations: The Federal rules restrict any use of the information to criminally investigate or prosecute any alcohol or drug abuse patient.[facility] the event this information is protected by the Federal Confidentiality of Alcohol and Drug Abuse Patient Records regulations: The Federal rules restrict any use of the information to criminally investigate or prosecute any alcohol or drug abuse patient.[facility] the event this information is protected by the Federal Confidentiality of Alcohol and Drug Abuse Patient Records regulations: The Federal rules restrict any use of the information to criminally investigate or prosecute any alcohol or drug abuse patient.[facility] HospitalIn the event this information is protected by the Federal Confidentiality of Alcohol and Drug Abuse Patient Records regulations: The Federal rules restrict any use of the information to criminally investigate or prosecute any alcohol or drug abuse patient.[facility] HospitalIn the event this information is protected by the Federal Confidentiality of Alcohol and Drug Abuse Patient Records regulations: The Federal rules restrict any use of the information to criminally investigate or prosecute any alcohol or drug abuse patient.[facility] HospitalIn the event this information is protected by the Federal Confidentiality of Alcohol and Drug Abuse Patient Records regulations: The Federal rules restrict any use of the information to criminally investigate or prosecute any alcohol or drug abuse patient.[facility] HospitalIn the event this information is protected by the Federal Confidentiality of Alcohol and Drug Abuse Patient Records regulations: The Federal rules restrict any use of the information to criminally investigate or prosecute any alcohol or drug abuse patient.[facility] HospitalIn the event this information is protected by the Federal Confidentiality of Alcohol and Drug Abuse Patient Records regulations: The Federal rules restrict any use of the information to criminally investigate or prosecute any alcohol or drug abuse patient.[facility] HospitalIn the event this information is protected by the Federal Confidentiality of Alcohol and Drug Abuse Patient Records regulations: The Federal rules restrict any use of the information to criminally investigate or prosecute any alcohol or drug abuse patient.[facility] HospitalIn the event this information is protected by the Federal Confidentiality of Alcohol and Drug Abuse Patient Records regulations: The Federal rules restrict any use of the information to criminally investigate or prosecute any alcohol or drug abuse patient.[facility] HospitalIn the event this information is protected by the Federal Confidentiality of Alcohol and Drug Abuse Patient Records regulations: The Federal rules restrict any use of the information to criminally investigate or prosecute any alcohol or drug abuse patient.[facility] HospitalIn the event this information is protected by the Federal Confidentiality of Alcohol and Drug Abuse Patient Records regulations: The Federal rules restrict any use of the information to criminally investigate or prosecute any alcohol or drug abuse patient.[facility] HospitalIn the event this information is protected by the Federal Confidentiality of Alcohol and Drug Abuse Patient Records regulations: The Federal rules restrict any use of the information to criminally investigate or prosecute any alcohol or drug abuse patient.[facility] HospitalIn the event this information is protected by the Federal Confidentiality of Alcohol and Drug Abuse Patient Records regulations: The Federal rules restrict any use of the information to criminally investigate or prosecute any alcohol or drug abuse patient.[facility] ClinicIn the event this information is protected by the Federal Confidentiality of Alcohol and Drug Abuse Patient Records regulations: The Federal rules restrict any use of the information to criminally investigate or prosecute any alcohol or drug abuse patient.[facility] HospitalIn the event this information is protected by the Federal Confidentiality of Alcohol and Drug Abuse Patient Records regulations: The Federal rules restrict any use of the information to criminally investigate or prosecute any alcohol or drug abuse patient.[facility] HospitalIn the event this information is protected by the Federal Confidentiality of Alcohol and Drug Abuse Patient Records regulations: The Federal rules restrict any use of the information to criminally investigate or prosecute any alcohol or drug abuse patient.[facility] HospitalIn the event this information is protected by the Federal Confidentiality of Alcohol and Drug Abuse Patient Records regulations: The Federal rules restrict any use of the information to criminally investigate or prosecute any alcohol or drug abuse patient.[facility] HospitalIn the event this information is protected by the Federal Confidentiality of Alcohol and Drug Abuse Patient Records regulations: The Federal rules restrict any use of the information to criminally investigate or prosecute any alcohol or drug abuse patient.[facility] HospitalIn the event this information is protected by the Federal Confidentiality of Alcohol and Drug Abuse Patient Records regulations: The Federal rules restrict any use of the information to criminally investigate or prosecute any alcohol or drug abuse patient.[facility] HospitalIn the event this information is protected by the Federal Confidentiality of Alcohol and Drug Abuse Patient Records regulations: The Federal rules restrict any use of the information to criminally investigate or prosecute any alcohol or drug abuse patient.[facility] HospitalIn the event this information is protected by the Federal Confidentiality of Alcohol and Drug Abuse Patient Records regulations: The Federal rules restrict any use of the information to criminally investigate or prosecute any alcohol or drug abuse patient.[facility] Reason for Visit (unrecogniz ed section and content) Specialty Diagnoses / Procedures Referred By Contac t Referred To Contact [facility] Diagnoses Breast cancer screening by mammogram Procedures YARON SCREENING SCREENING MAMMOGRAPHY BI 2-VIEW BREAST INC CAD Ann Farooq MD [address] [place] [address] [facility] [address] [place] [address] Referral ID Status Reason Start Date Expiration Date V isits Requested Visits Authorized [id number] Closed Auto-Generate d Referral 08/14/2021 09/13/2022 1 1 Reason Comments Refill Request Reason Comments Lab Orders Reason Comments Same Day Appointment pain area in anal a ang Reason Onset Date Comments Refill Request 12/09/2021 Reason Onset Date Comments Refill Request 12/12/2021 Reason Onset Date Comments F/U 6 months Immunizations 02/19/2022 Flu vaccination Reason Comments Spirometry Specialty Diagnoses / Procedures Referred By Contac t Referred To Contact [facility] Diagnoses Restrictive lung disease Procedures LUNG VOLUMES Ann Farooq MD [address] [place] [address] [facility] [place] [address] [place] [id number] Referral ID Status Reason Start Date Expiration Date V isits Requested Visits Authorized [id number] Closed Auto-Generate d Referral 02/19/2022 03/21/2023 1 1 Reason Comments Results Reason Comments Results Reason Comments sore on bottom X 1 month Reason Comments Med Change Request Reason Comments Consult Follow Up Right buttock absces s Specialty Diagnoses / Procedures Referred By Contac t Referred To Contact General Surgery Diagnoses Abscess Procedures CONSULT TO GENERAL SURGERY OFFICE/OUTPATIENT NEW HIGH MDM 60-74 MINUTES Dania Harrison PA-C [address] [place] [address] Referral ID Status Reason Start Date Expiration Date V isits Requested Visits Authorized [id number] Closed PCP Requested Referral 03/09/2022 03/09/2023 1 1 Reason Comments referal Needing results faxe d to Dr Royal Reason Comments Imm/Inj Reason Comments [facility] requesting records Reason Comments F/U HTN 3 Month Reason Comments Insurance Authorization Reason Comments Recheck 3 month Reason Onset Date Comments Refill Request 10/25/2022 Reason Comments Orders Reason Comments Follow Up diabetes-moujoro Reason Onset Date Comments Refill Request 02/21/2023 Reason Onset Date Comments Refill Request 02/07/2023 Reason Onset Date Comments Refill Request 06/13/2023 Reason Comments Yearly Exam moujero, cholesterol , bld sugars average is 90's, worried about about diverticulosis Reason Comments Radiology CT Specialty Diagnoses / Procedures Referred By Contac t Referred To Contact [facility] Diagnoses Disorder of bone Procedures CT PELVIS W IVCON CT PELVIS W/CONTRAST MATERIAL Quincy Good MD [address] [place] [address] [place] [address] Referral ID Status Reason Start Date Expiration Date V isits Requested Visits Authorized [id number] Closed Auto-Generate d Referral 07/15/2023 05/11/2024 1 1 Specialty Diagnoses / Procedures Referred By Contac t Referred To Contact CT [facility] Diagnoses Disorder of bone Procedures CT PELVIS W IVCON CT PELVIS W/CONTRAST MATERIAL Quincy Good MD [address] [place] [address] [place] [address] Care Teams (unrecognized sec tion and content) Used Equipment Sales Representative Relationship Specialty Start Date End Date Ann Farooq MD [address] [place] [address] PCP - General Internal Medicine 08/17/14 Used Equipment Sales Representative Relationship Specialty Start Date End Date Ann Farooq MD [address] [place], [place] [id number] PCP - General Internal Medicine 08/17/14 Used Equipment Sales Representative Relationship Specialty Start Date End Date Ann Farooq MD [address] [place], [place] [phone] PCP - General Internal Medicine 08/17/14 Used Equipment Sales Representative Relationship Specialty Start Date End Date Ann Farooq MD [address] [place] [address] PCP - General Internal Medicine 08/17/14 Used Equipment Sales Representative Relationship Specialty Start Date End Date Ann Farooq MD [address] [place] [address] PCP - General Internal Medicine 08/17/14 Used Equipment Sales Representative Relationship Specialty Start Date End Date Ann Farooq MD [address] [place] [address] PCP - General Internal Medicine 08/17/14 Used Equipment Sales Representative Relationship Specialty Start Date End Date Ann Farooq MD [address] [place] [address] PCP - General Internal Medicine 08/17/14 Used Equipment Sales Representative Relationship Specialty Start Date End Date Ann Farooq MD [address] [place] [address] PCP - General Internal Medicine 08/17/14 Used Equipment Sales Representative Relationship Specialty Start Date End Date Ann Farooq MD [address] [place] [address] PCP - General Internal Medicine 08/17/14 Used Equipment Sales Representative Relationship Specialty Start Date End Date Ann Farooq MD [address] [place] [address] PCP - General Internal Medicine 08/17/14 Used Equipment Sales Representative Relationship Specialty Start Date End Date Ann Farooq MD [address] [place] [address] PCP - General Internal Medicine 08/17/14 Used Equipment Sales Representative Relationship Specialty Start Date End Date Ann Farooq MD [address] [place] [address] PCP - General Internal Medicine 08/17/14 Used Equipment Sales Representative Relationship Specialty Start Date End Date Ann Farooq MD [address] [place] [address] PCP - General Internal Medicine 08/17/14 Used Equipment Sales Representative Relationship Specialty Start Date End Date Ann Farooq MD [address] [place] [address] PCP - General Internal Medicine 08/17/14 Used Equipment Sales Representative Relationship Specialty Start Date End Date Ann Farooq MD [address] [place] [address] PCP - General Internal Medicine 08/17/14 Used Equipment Sales Representative Relationship Specialty Start Date End Date Ann Farooq MD [address] [place] [address] PCP - General Internal Medicine 08/17/14 Used Equipment Sales Representative Relationship Specialty Start Date End Date Ann Farooq MD [address] [place] [address] PCP - General Internal Medicine 08/17/14 Used Equipment Sales Representative Relationship Specialty Start Date End Date Ann Farooq MD [address] [place] [address] PCP - General Internal Medicine 08/17/14 Used Equipment Sales Representative Relationship Specialty Start Date End Date Ann Farooq MD [address] [place] [address] PCP - General Internal Medicine 08/17/14 Used Equipment Sales Representative Relationship Specialty Start Date End Date Ann Farooq MD [address] [place] [address] PCP - General Internal Medicine 08/17/14 Used Equipment Sales Representative Relationship Specialty Start Date End Date Ann Farooq MD [address] [facility], [place] [address] PCP - General Internal Medicine 08/17/14 Used Equipment Sales Representative Relationship Specialty Start Date End Date Ann Farooq MD [address] [facility] [place] [address] PCP - General Internal Medicine 08/17/14 Used Equipment Sales Representative Relationship Specialty Start Date End Date Ann Farooq MD [address] [place] [address] PCP - General Internal Medicine 08/17/14 Used Equipment Sales Representative Relationship Specialty Start Date End Date Ann Farooq MD [address] [facility], [place] [address] PCP - General Internal Medicine 08/17/14 Used Equipment Sales Representative Relationship Specialty Start Date End Date Ann Farooq MD [address] [facility], [place] [id number] PCP - General Internal Medicine 08/17/14 FOR RECORDS PERTAINING TO PATIENTS WHO ARE OR HAVE BEEN ENROLLED IN A CHEMICAL DEPENDENCY/SUBSTANCEABUSE PROGRAM, SOME INFORMATION MAY BE OMITTED. This clinical summary was aggregated from multiple sources. Caution should be exercised in using it in the provision of clinical care. This summary normalizes information from multiple sources, and as a consequence, information in this document may materially change the coding, format and clinical context of patient data. In addition, data may be omitted in some cases. CLINICAL DECISIONS SHOULD BE BASED ON THE PRIMARY CLINICAL RECORDS. [employer] [facility]. provides no warranty or guarantee of the accuracy or completeness of information in this document.
== END 2023-07-22 17:32 | disposition home or self-care (01) ==
PROVIDERS: Emergency Provider Emergency Medicine; PCP Internal Medicine; Visit Provider Emergency Medicine
DX: G45.4 Transient global amnesia (principal); E11.9 Type 2 diabetes mellitus without complications; E78.5 Hyperlipidemia, unspecified; I10 Essential (primary) hypertension; Z79.899 Other long term (current) drug therapy; Z79.84 Long term (current) use of oral hypoglycemic drugs; Z90.49 Acquired absence of other specified parts of digestive tract
CPT/HCPCS: 70450; 80053; 81001; 85025; 99283; A4216